=== PATIENT | male | born 1940 | race Caucasian/White ===

== ENCOUNTER 2018-12-24 23:28 | Inpatient (IN) ==
--- NOTE | 2018-12-24 23:38 | Emergency Department Note ---
Disposition Clinical Impression: STEMI (ST elevation myocardial infarction) Qualifiers: Involved coronary artery: unspecified coronary artery Qualified Code(s): I21.3 - ST elevation (STEMI) myocardial infarction of unspecified site Disposition: Admitted As Inpatient Condition: Fair Time of Disposition: 00:12 General Adult HPI - General Stated complaint: chest pain & nausea Time Seen by Provider: 12/24/18 23:35 Source: patient, EMS Mode of arrival: EMS Limitations: no limitations Nursing Notes Reviewed: Yes Vital Signs Reviewed: Yes - History of Present Illness HPI Narrative: Is a 78-year-old male has past medical history of an aortic valve replaced and 2 stents replaced in September 2018 presenting to the ED by EMS for evaluation of chest pain that started less than one hour prior to arrival described as substernal pressure-like pain at 8/10 on the pain scale him with radiation into his right arm and denies any dyspnea, diaphoresis. An squad he was given aspirin and a dose of nitroglycerin with minimal improvement in his pain. Patient states he is not taking his Plavix and aspirin for the past week due to large kidney stone with plans for removal. - Related Data Home Medications Medication Instructions Recorded Confirmed Aspirin [Lo-Dose Aspirin EC] 81 mg PO QAM 07/25/18 10/27/18 Atenolol [Tenormin] 50 mg PO QAM 07/25/18 10/27/18 Glimepiride [Amaryl] 4 mg PO DAILY 07/25/18 10/27/18 Levomefolate/B6/B12/Algal Oil 1 cap PO BID 07/25/18 10/27/18 [Metanx Capsule] Metformin HCl 1,000 mg PO BID 07/25/18 10/27/18 Simvastatin [Zocor] 20 mg PO QPM 07/25/18 10/27/18 Amlodipine Besylate 5 mg PO HS 10/27/18 10/27/18 Clopidogrel Bisulfate [Plavix] 75 mg PO DAILY 10/27/18 10/27/18 Furosemide [Lasix] 40 mg PO DAILY 10/27/18 10/27/18 Potassium Chloride [Klor-Con 10] 10 meq PO DAILY 10/27/18 10/27/18 Allergies Allergy/AdvReac Type Severity Reaction Status Date / Time bee venom protein (honey bee) Allergy Severe Anaphylaxis Verified 10/27/18 15:18 All systems ED: reviewed and negative except as stated. Review of Systems: As Per HPI Cardiovascular: Reports: chest pain Past Medical History - Past Medical History Attestation: Yes The following information was validated with the patient. Medical history: Reports: arthritis, CHF, coronary artery disease, diabetes, GERD, GI bleed, hyperlipidemia, hypertension, kidney stones, migraine, myocardial infarction, TIA, valvular heart disease Psychiatric history: Reports: anxiety, depression - Social History Smoking Status: Former smoker Smokeless Tobacco Status: No Alcohol use: Reports: none Drug use: Reports: none Physical Exam CONSTITUTIONAL: Diaphoretic and pale; A&O X 3 HEAD: Normocephalic; atraumatic EYES: PERRL, no scleral icterus NOSE: The nose is normal in appearance without rhinorrhea NECK: No JVD or distended neck veins RESP: Normal chest excursion with respiration; breath sounds clear and equal bilaterally; no wheezes, rhonchi, or rales CARD: Regular rhythm, without murmurs, rub or gallop ABD: Non-distended; non-tender, soft, without rigidity, rebound or guarding,no pulsatile mass CHEST: No pain with palpation SKIN: Normal for age and race; warm and dry without diaphoresis ; no apparent lesions EXTREMITIES: Pulses are 2 plus and equal times 4 extremities, no peripheral edema or calf muscle pain Course Course Narrative: Patient's initial EKG concerning for ST segment elevation in V1 through V4 leads that are new when compared to old EKG. STEMI alert was activated Dr. Willard agreed with these findings. - Reevaluation(s) Reevaluation #1: Called to bedside by nurse patient found to have a changing rhythm continues and sinus rhythm at 83 bpm however he has a widening of his QRS and worsening of his ST elevations in V1 through V4 with reciprocal changes in V6 and inferior leads. Time: 00:11 Vital Signs Temperature 98.0 F 12/24/18 23:32 Pulse Rate 85 12/24/18 23:32 Respiratory Rate 16 12/24/18 23:32 Blood Pressure 171/98 12/24/18 23:32 O2 Sat by Pulse Oximetry 99 12/24/18 23:32 Temperature 98.0 F 12/24/18 23:32 Pulse Rate 83 12/25/18 00:00 Respiratory Rate 16 12/25/18 00:00 Blood Pressure 162/84 12/25/18 00:00 O2 Sat by Pulse Oximetry 95 12/25/18 00:00 Oxygen Delivery Oxygen Delivery Room Air Medical Decision Making - Medical Records Medical records reviewed: Yes I reviewed the patient's medical records. - Lab Data Lab results reviewed: Yes I reviewed the patient's lab results. Result diagrams: 12/24/18 23:43 Lab Results 12/24/18 Range/Units 23:43 WBC 8.4 (4.3-11.1) K/mcL RBC 4.10 L (4.19-5.50) M/mcL Hgb 11.4 L (12.9-16.9) g/dL Hct 35.2 L (37.5-50.1) % MCV 85.9 (83.0-100.0) fL MCH 27.8 L (28.0-33.3) pg MCHC 32.4 (31.6-35.5) g/dL RDW 16.7 H (11.5-14.5) % Plt Count 283 (140-400) K/mcL MPV 9.6 (9.4-12.4) fL Immature Gran % 1.2 (0-4) % Seg Neutrophils % 79.1 % Lymphocytes % 10.1 % Monocytes % 6.4 % Eosinophils % 2.7 % Basophils % 0.5 % Neutrophils # 6.7 (1.6-8.9) K/mcL Lymphocytes # 0.9 (0.6-4.6) K/mcL Monocytes # 0.5 (0.0-1.3) K/mcL Eosinophils # 0.2 (0.0-0.6) K/mcL Basophils # 0.0 (0.0-0.2) K/mcL - EKG Data EKG #1 EKG attestation: Yes I reviewed and interpreted this EKG. EKG results narrative: First EKG performed at 23:[address] elevations in V1 through V4. STEMI EKG #2 EKG attestation: Yes I reviewed and interpreted this EKG. EKG results narrative: EKG done at 2351 is sinus rhythm [address] elevations in V1 through V4 with reciprocal changes in the inferior and lateral leads
[2018-12-24] MEDS ORDERED: Aspirin 81 MG TAB.CHEW PO ONE (23:39)
[2018-12-24] MEDS ORDERED: *HR* Ticagrelor 90 MG TABLET PO ONE (23:39)
[2018-12-24] MEDS ORDERED: *HR* Heparin 5,000 UNIT/ML VIAL IVP ONE ×2 (23:44→23:50)
[2018-12-24] MEDS ORDERED: *HR* Heparin 5,000 UNIT/ML VIAL IVP PRN ×4 (23:44→23:50)
[2018-12-24] MEDS ORDERED: *HR* Heparin 5,000 UNIT/ML VIAL ONE (23:45)
[2018-12-24] MEDS ORDERED: 0.9 % Sodium Chloride 1,000 ML ONE (23:45)
[2018-12-24] MEDS ORDERED: *HR* Ticagrelor 90 MG TABLET ONE (23:45)
[2018-12-24] MEDS ORDERED: Heparin 25,000 UNIT/250 ML D5W 25,000 UNIT/250 ML IV.SOLN IVC SCH ×2 (23:45)
[2018-12-24] MEDS ORDERED: Aspirin 81 MG TAB.CHEW ONE (23:45)
[2018-12-24] MEDS ORDERED: *HR* FentaNYL (PF) 100 MCG/2 ML VIAL IVP ONE (23:47)
[2018-12-24 23:59] LABS: Basophils % 0.5 %; Eosinophils # 0.2 K/mcL (0.0-0.6); Eosinophils % 2.7 %; Hematocrit 35.2 % (37.5-50.1); Hemoglobin 11.4 g/dL (12.9-16.9); Immature Granulocytes % 1.2 % (0-4); Lymphocytes # 0.9 K/mcL (0.6-4.6); Lymphocytes % 10.1 %; Mean Corpuscular HGB Conc 32.4 g/dL (31.6-35.5); Mean Corpuscular Hemoglobin 27.8 pg (28.0-33.3); Mean Corpuscular Volume 85.9 fL (83.0-100.0); Mean Platelet Volume 9.6 fL (9.4-12.4); Monocytes # 0.5 K/mcL (0.0-1.3); Monocytes % 6.4 %; Neutrophils # 6.7 K/mcL (1.6-8.9); Platelet Count 283 K/mcL (140-400); Red Cell Distribution Width 16.7 % (11.5-14.5); Segmented Neutrophils % 79.1 %; White Blood Count 8.4 K/mcL (4.3-11.1)
[2018-12-25] MEDS ORDERED: Verapamil 5 MG/2 ML VIAL ONE
[2018-12-25] MEDS ORDERED: Nitroglycerin 1,000 MCG/10 ML VIAL IV ONE (00:01)
[2018-12-25] MEDS ORDERED: Heparin 1,000 UNITS/500 mL 500 ML ONE (00:01)
[2018-12-25] MEDS ORDERED: *HR* Heparin 10,000 UNIT/10 ML VIAL ONE (00:01)
[2018-12-25] MEDS ORDERED: Iopamidol 125 ML INFUS..BTL ONE ×3 (00:01→00:49)
[2018-12-25] MEDS ORDERED: 0.9 % Sodium Chloride 1,000 ML ONE (00:01)
[2018-12-25 00:06] LABS: Prothrombin Time 11.9 Seconds (9.4-12.1)
[2018-12-25 00:08] LABS: Activated Partial Thrombo Time 26.2 Seconds (26.0-36.0)
[2018-12-25 00:09] LABS: Heparin anti-factor XA UFH 0.02 IU/mL (0.30-0.70)
[2018-12-25] MEDS ORDERED: *HR* Midazolam HCl 2 MG/2 ML VIAL ONE (00:09)
[2018-12-25] MEDS ORDERED: *HR* FentaNYL (PF) 100 MCG/2 ML VIAL ONE (00:09)
--- NOTE | 2018-12-25 00:18 | Pre-Sedation Evaluation ---
Pre-sedation evaluation - Pre-sedation checklist Date of procedure: 12/25/18 Procedure: [facility] Recent Vitals: Last Vital Signs Temp 98.0 F 12/24/18 23:32 Pulse 83 12/25/18 00:00 Resp 16 12/25/18 00:00 BP 162/84 12/25/18 00:00 Pulse Ox 95 12/25/18 00:00 H&P (including ROS) documented in medical record: Yes Dietary Status: unknown Airway Assessment: Patient can open mouth completely, TMJ function normal ASA Classification *see protocol: CLASS V-Morbid complications, operation only hope of survival, [id number] to any of the above to indicate emergent Plan of Care: Pt appropriate candidate for procedure/moderate/conscious sedation, Risks/benefits of procedure/sedation discussed w/ patient/family, If not NPO; Risk of intake outweiged by necessity to perform procedure Cardiac Registry (Cardio Only) - Functional Capacity Functional Capacity: >=4 METS with symptoms - Clincal Frailty Scale Clinical Frailty Scale: Vulnerable
[2018-12-25 00:20] LABS: BUN/Creatinine Ratio 24 (6-26); Blood Urea Nitrogen 24 mg/dL (8-23); Calcium 9.9 mg/dL (8.6-10.3); Carbon Dioxide 22 mEq/L (23-29); Chloride 103 mEq/L (98-107); Glucose 262 mg/dL (70-105); Magnesium 1.7 mg/dL (1.6-2.6); Osmolality,Calculated 299 (280-300); Potassium 4.1 mEq/L (3.5-5.1); Sodium 138 mEq/L (136-145); eGFR For African Americans > 60 (> 60); eGFR For Non-African Americans > 60 (> 60)
--- NOTE | 2018-12-25 00:21 | Cardiology History & Physical ---
Date of Encounter: 12/26/18 Time of Encounter: 00:30 Assessment and Plan (1) STEMI (ST elevation myocardial infarction) Current Visit: Yes Status: Acute A/R/B of emergent [facility] dw patient including 1% chance of /CVA/CABG/JORGE LUIS/bleeding/contrast reaction/additional ND. He is aware and agreeable with proceeding. EF assessment will be completed, DAPT, heparin. Cardiac reab. Total critical care time 90 minutes The assessment and plan as outlined above was discussed with the patient and/or family members who expressed understanding and agreement. All questions were answered. Qualifiers: Involved coronary artery: LAD coronary artery Qualified Code(s): I21.02 - ST elevation (STEMI) myocardial infarction involving left anterior descending coronary artery (2) Ureteral stone with hydronephrosis Current Visit: No Status: Acute BMS will be utilized if necessary. The assessment and plan as outlined above was discussed with the patient and/or family members who expressed understanding and agreement. All questions were answered. History of Present Illness Chief complaint: chest pressure HPI: Mr. 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 He was given aspirin and brilinta in ED. It was associated with dyspnea. EKG concerning for anterior ND. Past Med Surg Social Fam HX - Past Medical History Medical history: arthritis, CHF, coronary artery disease, diabetes, GERD, GI bleed, hyperlipidemia, hypertension, kidney stones, migraine, myocardial infarction, TIA, valvular heart disease Psychiatric history: anxiety, depression - Past Surgical History Additional surgical history: throat surgery Stent placement, Aortic Valve replacement. - Social History Smoking Status: Former smoker Smokeless Tobacco Status: No Alcohol use: none Drug use: none - Family History Sister Adopted: No Family Member Ethnicity: Non- Living Status: Still Living Hx Family Cardiac Disorders: Yes Hx Family Respiratory Disorders: No Hx Family Cancer: No Hx Family GI Disorders: Yes Hx Family Endocrine Disorder: No Hx Family Neuromuscular Disorders: No Hx Family Neurologic Disorders: No Hx Family HEENT Disorders: Yes (glasses) Hx Family Autoimmune Disorders: No Medications and Allergies Aspirin [Lo-Dose Aspirin EC] 81 mg PO QAM 07/25/18 [History] Atenolol [Tenormin] 50 mg PO QAM 07/25/18 [History] Glimepiride [Amaryl] 4 mg PO QAM 07/25/18 [History] Levomefolate/B6/B12/Algal Oil [Metanx Capsule] 1 cap PO BID 07/25/18 [History] Metformin HCl 1,000 mg PO BID 07/25/18 [History] Simvastatin [Zocor] 20 mg PO QPM 07/25/18 [History] Amlodipine Besylate 5 mg PO HS 10/27/18 [History] Clopidogrel Bisulfate [Plavix] 75 mg PO DAILY 10/27/18 [History] Potassium Chloride [Klor-Con 10] 10 meq PO DAILY 10/27/18 [History] Allergy/AdvReac Type Severity Reaction Status Date / Time bee venom protein (honey bee) Allergy Severe Anaphylaxis Verified 12/25/18 17:23 All Systems Review: The remainder of the systems were reviewed and are negative - Constitutional Constitutional: no chills, no fever(s) - EENT Eyes: no blurred vision, no loss of vision Nose, mouth and throat: no mouth pain, no odynophagia - Cardiovascular Cardiovascular: chest pain at rest, chest pain with exertion - Respiratory Respiratory: no hemoptysis, no wheezing - Gastrointestinal Gastrointestinal: no hematemesis, no hematochezia - Genitourinary Genitourinary: no hematuria, no nocturia - Musculoskeletal Musculoskeletal: no muscle cramps, no muscle weakness - Integumentary Integumentary: no rash, no unusual bruising - Neurological Neurological: no loss of vision, no syncope - Psychiatric Psychiatric: no hallucinations, no panic attacks - Hematological/Lymphatic Hematologic/Lymphatic: no easy bleeding, no easy bruising Physical Examination Vital Signs, Last 4 Hours Temp Pulse Resp BP Pulse Ox 12/25/18 00:13 85 13 165/89 92 12/25/18 00:00 83 16 162/84 95 12/24/18 23:45 83 18 160/86 99 12/24/18 23:32 98.0 F 85 16 171/98 99 General: Conversant HEENT: Atraumatic Neck: No JVD Cardiac: Reg Rate and Rhythm Lungs: Normal Breath Sounds Neuro: No focal deficits noted Abdomen: Soft, Non-Tender Skin: No rashes noted on visualized skin Musculoskeletal: No Chest Wall Tenderness Extremities: No Edema Results 12/25/18 03:52 12/25/18 03:52 Lab Results 12/24/18 12/24/18 23:43 23:45 WBC 8.4 Hgb 11.4 L Hct 35.2 L Plt Count 283 INR 1.0 APTT 26.2 - EKG Interpretation EKG results cardiology: personally reviewed, sinus rhythm (anterior ischemia)
[2018-12-25] MEDS ORDERED: Ondansetron 4 MG/2 ML VIAL IVP PRN (00:23)
[2018-12-25 00:29] LABS: Troponin I 0.16 ng/mL (< 0.04)
--- NOTE | 2018-12-25 00:42 | Emergency Department Note ---
Disposition Clinical Impression: STEMI (ST elevation myocardial infarction) Qualifiers: Involved coronary artery: LAD coronary artery Qualified Code(s): I21.02 - ST elevation (STEMI) myocardial infarction involving left anterior descending coronary artery Disposition: Admitted As Inpatient Condition: Serious Time of Disposition: 00:12 General Adult HPI - General Chief complaint: ED Chest Pain Stated complaint: chest pain & nausea Time Seen by Provider: 12/24/18 23:35 Source: patient, EMS Mode of arrival: EMS Limitations: no limitations Nursing Notes Reviewed: Yes Vital Signs Reviewed: Yes - History of Present Illness Pain Scale: 8 - Related Data Home Medications Medication Instructions Recorded Confirmed Aspirin [Lo-Dose Aspirin EC] 81 mg PO QAM 07/25/18 10/27/18 Atenolol [Tenormin] 50 mg PO QAM 07/25/18 10/27/18 Glimepiride [Amaryl] 4 mg PO DAILY 07/25/18 10/27/18 Levomefolate/B6/B12/Algal Oil 1 cap PO BID 07/25/18 10/27/18 [Metanx Capsule] Metformin HCl 1,000 mg PO BID 07/25/18 10/27/18 Simvastatin [Zocor] 20 mg PO QPM 07/25/18 10/27/18 Amlodipine Besylate 5 mg PO HS 10/27/18 10/27/18 Clopidogrel Bisulfate [Plavix] 75 mg PO DAILY 10/27/18 10/27/18 Furosemide [Lasix] 40 mg PO DAILY 10/27/18 10/27/18 Potassium Chloride [Klor-Con 10] 10 meq PO DAILY 10/27/18 10/27/18 Allergies Allergy/AdvReac Type Severity Reaction Status Date / Time bee venom protein (honey bee) Allergy Severe Anaphylaxis Verified 10/27/18 15:18 Cardiovascular: Reports: chest pain Past Medical History - Past Medical History Medical history: Reports: arthritis, CHF, coronary artery disease, diabetes, GERD, GI bleed, hyperlipidemia, hypertension, kidney stones, migraine, myocardial infarction, TIA, valvular heart disease Psychiatric history: Reports: anxiety, depression - Social History Smoking Status: Former smoker Smokeless Tobacco Status: No Alcohol use: Reports: none Drug use: Reports: none Physical Exam - General Limitations: no limitations General appearance: alert Course Vital Signs Temperature 98.0 F 12/24/18 23:32 Pulse Rate 85 12/24/18 23:32 Respiratory Rate 16 12/24/18 23:32 Blood Pressure 171/98 12/24/18 23:32 O2 Sat by Pulse Oximetry 99 12/24/18 23:32 Temperature 98.0 F 12/24/18 23:32 Pulse Rate 85 12/25/18 00:13 Respiratory Rate 13 12/25/18 00:13 Blood Pressure 165/89 12/25/18 00:13 O2 Sat by Pulse Oximetry 92 12/25/18 00:13 Oxygen Delivery Oxygen Delivery Room Air Medical Decision Making - Lab Data Lab results reviewed: Yes I reviewed the patient's lab results. Result diagrams: 12/24/18 23:43 12/24/18 23:45 Lab Results 12/24/18 12/24/18 12/24/18 Range/Units 23:43 23:45 23:45 WBC 8.4 (4.3-11.1) K/mcL RBC 4.10 L (4.19-5.50) M/mcL Hgb 11.4 L (12.9-16.9) g/dL Hct 35.2 L (37.5-50.1) % MCV 85.9 (83.0-100.0) fL MCH 27.8 L (28.0-33.3) pg MCHC 32.4 (31.6-35.5) g/dL RDW 16.7 H (11.5-14.5) % Plt Count 283 (140-400) K/mcL MPV 9.6 (9.4-12.4) fL Immature Gran % 1.2 (0-4) % Seg Neutrophils % 79.1 % Lymphocytes % 10.1 % Monocytes % 6.4 % Eosinophils % 2.7 % Basophils % 0.5 % Neutrophils # 6.7 (1.6-8.9) K/mcL Lymphocytes # 0.9 (0.6-4.6) K/mcL Monocytes # 0.5 (0.0-1.3) K/mcL Eosinophils # 0.2 (0.0-0.6) K/mcL Basophils # 0.0 (0.0-0.2) K/mcL PT 11.9 (9.4-12.1) Seconds INR 1.0 APTT 26.2 (26.0-36.0) Seconds Heparin Anti-Xa, Unfract 0.02 L (0.30-0.70) IU/mL Sodium 138 (136-145) mEq/L Potassium 4.1 (3.5-5.1) mEq/L Chloride 103 (98-107) mEq/L Carbon Dioxide 22 L (23-29) mEq/L BUN 24 H (8-23) mg/dL Creatinine 1.00 (0.70-1.30) mg/dL Est GFR ( Amer) > 60 (> 60) Est GFR (Non-Af Amer) > 60 (> 60) BUN/Creatinine Ratio 24 (6-26) Glucose 262 H (70-105) mg/dL Calculated Osmolality 299 (280-300) Calcium 9.9 (8.6-10.3) mg/dL Magnesium 1.7 (1.6-2.6) mg/dL Troponin I 0.16 H* (< 0.04) ng/mL - EKG Data EKG #1 EKG attestation: Yes I reviewed and interpreted this EKG. EKG results narrative: 23:35 EKG shows a normal sinus rhythm with ventricular rate is 76. ST segment elevation in V1 through V4 which does meet STEMI criteria. This is new compared to prior EKG dated 07/25/2018. EKG #2 EKG attestation: Yes I reviewed and interpreted this EKG. EKG results narrative: 23:51 repeat EKG shows normal sinus rhythm with ventricular rate of 83. Pat ient has developed a new left bundle branch block with QRS widening since the initial EKG. There is increased anterior ST segment elevation and now with inferior ST segment depressions. Critical Care Time Critical Care Time: Yes Total Critical Care Time: 35 Attestation: Critical care performed: Time is exclusive of separately billable procedures. Time includes: direct patient care, patient reassessment, coordination of patient care, interpretation of data (laboratory data, radiology data, and respiratory data), review of patient's medical records, medical consultation and documentation of patient car e. Procedures included in critical care time: Procedures excluded from critical care time: Attestation Statement - Attestation Attestation: IRomario MD, personally evaluated this patient and discussed their management with the resident physician. I reviewed the resident's note and agree with the documented findings, medical decision making, and plan of care. I reviewed the residents documentation and agree with the residents assessment and plan of care. I have personally had face to face time with the patient. I personally supervised and was present for the fajardo/critical portions of the following procedures completed by the resident: EKG interpretation. 78-year-old male presents to the emergency department with a complaint of severe substernal chest pain which started approximately one hour prior to arrival. Onset at rest. The pain radiates to the right arm. There has been some shortness of breath with the pain. Nausea but no vomiting. Also diaphoresis. Patient does have a history of a heart valve replacement in the distant past and a coronary stent recently in the past several months. He normally takes aspirin and Plavix however he stopped the aspirin and Plavix approximately one week ago because he is scheduled Wednesday to have a kidney stone removal. On examination patient is a well-developed well-nourished elderly male in no acute distress. He is alert and oriented 3. There is no cyanosis or diaphoresis. Chest is nontender to palpation. Breath sounds are clear and equal bilaterally. Heart regular rate and rhythm. Abdomen soft and nontender with normal bowel sounds. 2+ pitting edema of the right lower extremity, 1+ pitting edema on the left. Initial EKG showed a normal sinus rhythm with rate of [address] segment elevation anteriorly in V1 through V4 which does meet STEMI criteria. Labs reviewed. Troponin 0.16. A STEMI alert was called. Patient received aspirin, Brilinta, and heparin bolus. Patient was taken directly from the emergency department to the cardiac catheter lab.
[2018-12-25] MEDS ORDERED: Tirofiban 12.5 MG/250ML 12.5 MG/250 ML BAG ONE (00:47)
--- NOTE | 2018-12-25 01:14 | Event Note ---
Date of Encounter: 12/25/18 Time of Encounter: 01:00 - Cardiology Event Note 100% mLAD IS sp BMS x 1. Previously jailed diagonal present. Unable to rewire this diagonal, has JEANNE 2.5 flow. Otherwise no severe disease. Elevated LVEDP. Start NTG drip.
[2018-12-25] MEDS ORDERED: Morphine Sulfate 2 MG/ML SYRINGE IVP PRN (01:17)
[2018-12-25] MEDS ORDERED: *HR* Dextrose 50 % in Water (Syg) 50 ML SYRINGE IVP PRN (01:18)
[2018-12-25] MEDS ORDERED: Dextrose Gel 15 GM/37.5 ML TUBE PO PRN ×2 (01:18)
[2018-12-25] MEDS ORDERED: D5% in Water 1,000 ML IVC PRN (01:18)
--- NOTE | 2018-12-25 01:36 | Invasive Diagnostic Lab Proc ---
Name: August Nalyor Date of Study: 12/25/2018 Date: 1940 Ht: 68.1in Medical Record#: [id number] Age: 78 Wt: 205.03lb Gender: Male BSA: 2.07 Order #: [id number] BMI: 31.07 Physicians Procedure Physician: Taurus Willard MD, [facility] Referring MD: Referring MD: Staff Name Position Time In Adam, Raheem RN Monitor 12:22 AM Nikita Fagan RN Certified Ophthalmic Assistant 12:22 AM Maegan Blount RT (R) Scrub 12:22 AM Indications Indication STEMI Procedures Performed Procedure PRQ CARD REVASC TX 1 VSL L HRT ARTERY/VENTRICLE ANGIO PRQ CARD BM STENT W/ANGIO 1 VSL Pre-Procedure Checklist Informed consent is complete signed and on chart. H&P is on chart. ID band is on and ID verified with patient. Patient NPO for procedure The procedure was described for the patient and questions were answered. Blood Pressure: 112/84 ECG is on chart. Rhythm: NSR Plan of Care Patient will tolerate the procedure without complications. Adequate level of comfort will be maintained. Hemodynamics will remain stable Patient will recover from procedure without complications. Respiratory function will be maintained. Cardiac rhythm will remain stable. Patient temperature will be maintained. Patient and/or family have verbalized understanding of the procedure. Patient Education Chief Complaint/Reason for Test: Cardiac Cath Developmental Category: Geriatric (65+ years) Developmentally Appropriate for Age: Yes Learning Barriers: None Education Needs: Procedure Education Method: Verbal Information Taught: Cardiac Cath Educational Evaluation: Able to repeat information Intravenous Access Time IV Size Location DC'd Fluid/Drip Rate Units RN 18g 1 1/4" Patent On Arrival Lt Wrist 0.9NaCl Nikita Fagan RN 20g 1 1/4" Patent On Arrival Rt Hand Nikita Fagan RN Allergies Penicillin Bee Pollen bee venom protein (honey bee) PCN No Known Allergies Vital Signs Time BP (mmHg) HR (bpm) O2 Sat. RR (bpm) LOC 12:29 AM / % 5 = Fully awake and oriented or at pre-proc level 12:29 AM / % 4 = Oriented but drowsy 12:44 AM / % 4 = Oriented but drowsy 01:00 AM / % 4 = Oriented but drowsy 12:30 AM 172 / 97 89 91 % 28 12:35 AM 165 / 93 94 87 % 43 12:40 AM 150 / 88 99 89 % 45 12:45 AM 157 / 95 92 95 % 23 12:50 AM 163 / 99 88 93 % 22 12:55 AM 160 / 90 91 93 % 20 01:00 AM 146 / 91 89 93 % 25 01:05 AM 150 / 89 86 95 % 35 01:10 AM 152 / 81 90 92 % 39 Procedural Medications Time Medication Dose Units Method Given By 12:29 AM Oxygen 2 L/min nasal cannula Nikita Fagan RN 12:30 AM Versed 2 mg Intravenous Nikita Fagan RN 12:30 AM Fentanyl 25 mcg Intravenous Nikita Fagan RN 12:33 AM Zofran 8 mg Intravenous Nikita Fagan RN 12:35 AM Lidocaine 2% 1 ml Subcutaneous Taurus Willard MD, FACC 12:38 AM Heparin 1000 units Nitroglycerin 200 mcg Verapamil 2.5 mg Intraarterial Taurus Willard MD, FACC 12:48 AM Aggrastat Bolus: 46 ml Intravenous Nikita Fagan RN 12:48 AM Aggrastat 12.5mg/250ml 16.5 ml/hr Intravenous Nikita Fagan RN 12:55 AM Nitroglycerin 200 mcg Intracoronary Taurus Willard MD 01:07 AM Nitroglycerin 200 mcg Intracoronary Taurus Willard MD 01:09 AM Nitroglycerin 10 mcg/min Intravenous Nikita Fagan RN ASA Classification: Emergent Procedure: ASA score is assumed Harlan Score Preprocedure Postprocedure Activity 2- Moves 4 extremities sustained head lift Activity 2- Moves 4 extremities sustained head lift Circulation 2- SBP +/= 20 points of pre-anesthetic level Circulation 2- SBP +/= 20 points of pre-anesthetic level Consciousness 2- Awake and alert oriented x 3 Consciousness 2- Awake and alert oriented x 3 O2 Saturation 2- Able to maintain O2 satruation of 92% on room air O2 Saturation 2- Able to maintain O2 satruation of 92% on room air Respiratory 2- Able to deep breathe and cough well Respiratory 2- Able to deep breathe and cough well Total Score 10 Total Score 10 Contrast Agent: Isovue Diagnostic Contrast: 129 ml Total Contrast: 129 ml Fluoro Dose: 41 mGy Procedure Log Time Note Enter By 12:22 AM Pt arrived to veterinarian laboratory animal care 2 at 00:22 oparave 12:22 AM Raheem Medina RN Position: Monitor Time in: 00:22 oparker 12:22 AM Nikita Fagan RN Position: Certified Ophthalmic Assistant Time in: oparker 12: AM Maegan Blount RT (R) Position: Scrub Time in: : oparker 12: AM Patient charges- Angio tray pack, Navilyst 3mm J, Pulse Oximetry and ACIST tubing and transducer oparker 12: AM Physician arrived 00: oparker 12: AM Meet and greet completed oparker 12: AM Sign in performed according to hospital policy. Informed consent was obtained. oparker 12: AM CathStat 12: AM Procedure start 00: oparker 12: AM Vitals capture started with the following parameters, Patient=Adult, Interval=5 min, Initial Wrhzqtrw=796 mmHg, Deflation Rate=3 mmHg, Cuff placed on Right Arm 12: AM Time: 00:29 Patient comfortable and pain free: Yes oparker 12:29 AM Time: 00:29LOC: 5 = Fully awake and oriented or at pre-proc level oparker 12:29 AM Time: 00:29 Oxygen on at 2 L/min per nasal cannula by Nikita Faagn RN oparave 12:30 AM Time: 00:30 Versed 2 mg Intravenous Given by Nikita Fagan RN 12:30 AM Time: 00:30 Fentanyl 25 mcg Intravenous Given by Nikita Fagan RN opamatthew 12:30 AM HR=89 bpm, VSJP=393/97 mmhg, SpO2=91.0 %, Resp=28 B/min, Comment=nsr 12:33 AM Time: 00:33 Zofran 8 mg Intravenous Given by Nikita Fagan RN opamatthew 12:35 AM HR=94 bpm, GAOR=627/93 mmhg, SpO2=87 %, Resp=43 B/min 12:35 AM Time out was performed according to hospital policy. Conscious sedation and anesthesia was achieved (see medication log with in this report above) oparker 12:35 AM Time: 00:35 1 ml Lidocaine 2% to right radial Subcutaneous Given by Taurus Willard MD, [facility] oparker 12:38 AM Access obtained by percutaneous puncture. 5/6Fr 10cm Terumo Glidesheath sheath placed in right Radial artery. [id number] oparker 12:39 AM Time: 00:38 Patient given 1,000 units Heparin, 200 mcg Nitroglycerin, and 2.5 mg Verapamil Intraarterial by Taurus Willard MD, [facility]. This is given to reduce risk of vessel spasm and thrombosis. oparker 12:39 AM 5Fr TIG catheter inserted over the wire [facility] oparker 12:40 AM Catheter removed oparker 12:40 AM HR=99 bpm, YWUP=938/88 mmhg, SpO2=89.0 %, Resp=45 B/min, Comment=nsr 12:40 AM 6Fr RBL 3.5 Convey guide catheter was used to cannulate the PCI vessel successfully. reused? No oparker 12:40 AM Recorded Pressure: Ao, HR=99, Condition=Condition 1 (Aorta) Ao 144/72/103 12:42 AM LCA angiography performed in multiple views. oparker 12:43 AM .014 PT Graphix 182cm guide wire across target lesion- successful. reused? No oparker 12:43 AM Inflation device was opened. oparker 12:43 AM PCI Status Emergency oparker 12:44 AM PCI lesion in Mid LAD. Pre Stenosis: 100 Pre JEANNE Flow: 0: No Flow/No perfusion oparker 12:44 AM PCI Indication: Immediate PCI for STEMI oparker 12:44 AM Time: 00:29 Patient comfortable and pain free: Yes oparker 12:44 AM Time: 00:29LOC: 4 = Oriented but drowsy oparker 12:45 AM 2.0 mm x 15 mm Emerge Monorail balloon across target lesion- successful. reused? No oparker 12:45 AM HR=92 bpm, DVTA=173/95 mmhg, SpO2=95.0 %, Resp=23 B/min 12:45 AM Balloon inflated @ 14 stephanie for 12 seconds oparker 12:47 AM Balloon catheter removed intact. oparker 12:48 AM Time: 00:48 Aggrastat Bolus: 46 ml Intravenous Given by Nikita Fagan RN Diallo pump oparker 12:48 AM 2.5 mm x 15mm NC Emerge balloon across target lesion- successful. reused? No oparker 12:48 AM Time: 00:48 Aggrastat 12.5mg/250ml 16.5 ml/hr Intravenous Given by Nikita Fagan RN Diallo pump oparker 12:48 AM Recorded Pressure: Ao, HR=92, Condition=Condition 1 (Aorta) Ao 139/85/111 12:48 AM Balloon inflated @ 16 stephanie for 16 seconds oparker 12:50 AM HR=88 bpm, RVOJ=835/99 mmhg, SpO2=93.0 %, Resp=22 B/min 12:51 AM Balloon catheter removed intact. oparker 12:51 AM Guide wire removed intact. oparker 12:51 AM Recorded Pressure: Ao, HR=91, Condition=Condition 1 (Aorta) Ao 153/71/107 12:52 AM .014 PT Graphix 182cm guide wire across target lesion- successful. reused? No oparker 12:55 AM HR=91 bpm, YBBO=299/90 mmhg, SpO2=93.0 %, Resp=20 B/min, Comment=nsr 12:55 AM Time: 00:55 Nitroglycerin 200 mcg Intracoronary Given by Taurus Willard MD oparker 12:58 AM 2.5mm x 18mm Multi-Link Mini Vision RX Stent bare metal stent across target lesion- successful Lot #[id number] oparker 12:59 AM Stent deployed @ 14 stephanie for 23 seconds oparker 12:59 AM Time: 00:44 Patient comfortable and pain free: Yes oparker 01:00 AM HR=89 bpm, QCFM=666/91 mmhg, SpO2=93 %, Resp=25 B/min 01:00 AM Time: 00:44LOC: 4 = Oriented but drowsy oparker 01:01 AM Stent delivery system removed intact. oparker 01:01 AM 2.75 mm x 12mm NC Trek Rx balloon across target lesion- successful. reused? No oparker 01:01 AM Recorded Pressure: Ao, HR=89, Condition=Condition 1 (Aorta) Ao 145/71/102 01:02 AM Balloon inflated @ 18 stephanie for 15 seconds oparker 01:02 AM Balloon inflated @ 18 stephanie for 7 seconds oparker 01:02 AM Balloon inflated @ 18 stephanie for 9 seconds oparker 01:03 AM Balloon catheter removed intact. oparker 01:03 AM Guide wire removed intact. oparker 01:04 AM Guide catheter removed intact. oparker 01:05 AM HR=86 bpm, WUJS=830/89 mmhg, SpO2=95.0 %, Resp=35 B/min, Comment=nsr 01:05 AM Lesion found in Proximal LAD. Pre Stenosis: 70 Pre JEANNE Flow: 2: Partial Flow/Perfusion (> 1 but < 3) oparker 01:05 AM Lesion found in Distal Circumflex. Pre Stenosis: 60 Pre JEANNE Flow: oparker 01:06 AM Lesion found in 1st Marginal. Pre Stenosis: 60 Pre JEANNE Flow: oparker 01:06 AM Lesion found in 1st Diagonal. Pre Stenosis: 99 Pre JEANNE Flow: oparker 01:06 AM 5Fr FR 4 catheter inserted over the wire DNC oparker 01:06 AM Recorded Pressure: LV, HR=88, Condition=Condition 1 (Left Ventricle) LV 130/45/43 01:06 AM Pressure channel 1 zeroed. 01:06 AM Recorded Pressure: LV, HR=86, Condition=Condition 1 (Left Ventricle) LV 142/25/46 01:07 AM Recorded Pressure: LV, HR=90, Condition=Condition 1 (Left Ventricle) LV 152/25/49 01:07 AM Time: 01:07 Nitroglycerin 200 mcg Intracoronary Given by Taurus Willard MD oparker 01:07 AM Catheter crossed the aortic valve and was selectively placed in the left ventricle. Pressures recorded on pullback for left heart catheterization. oparker 01:07 AM Pressures only oparker 01:07 AM Recorded Pressure: LV, Ao, HR=91, Condition=Condition 1 (Left Ventricle) LV 122/38/41, (Aorta) Ao 122/73/96 01:08 AM RCA angiography performed in multiple views. oparker 01:08 AM Coronary Dominance: right oparker 01:08 AM Lesion found in Proximal RCA. Pre Stenosis: 30 Pre JEANNE Flow: oparker 01:09 AM Catheter removed oparker 01:09 AM Wire removed oparker 01:10 AM Time: 01:09 Nitroglycerin 10 mcg/min Intravenous Given by Nikita Fagan RN oparker 01:10 AM HR=90 bpm, VMHV=828/81 mmhg, SpO2=92.0 %, Resp=39 B/min, Comment=nsr 01:12 AM Procedure completed at 01:12 12/25/2018 oparker 01:12 AM Did you address JEANNE flow and Dominance? YesCoronary Dominance: right oparker 01:12 AM Isovue 370 - 150ml,2 Bottle(s) used. oparker 01:12 AM Arterial sheath pulled, Vasc Band closure device used and was Successful S/N. oparker 01:12 AM 15 ml air in Vasc Band. oparker 01:12 AM Estimated Blood Loss: less than 20cc oparker 01:12 AM Post ECG NSR oparker 01:12 AM Post Blood Pressure 152/81 oparker 01:13 AM 01:12 Post Pulses Bilateral DP 1+ oparker 01:13 AM 01:13 Post Pulses Rt Radial 1+ oparker 01:13 AM Information taught Cardiac Cath, PCI, and Vasc Band oparker 01:13 AM Education needs Procedure, Plan of Care, and Responsibilities of Patient in Care oparker 01:15 AM Time: 01:00LOC: 4 = Oriented but drowsy oparker 01:15 AM Time: 00:59 Patient comfortable and pain free: Yes oparker 01:16 AM Sign out completed: Radiation Dose 313.97 mGy, 40.7 Gy/cm2 Fluoro Time: 8.3 Isovue 370 - 200ml contrast 129 ml given by Taurus Willard MD, FACC. Complications: None. The patient was discharged out of the laboratory analyst in stable condition. Sedation minutes 46. Cardiac Rehab Consult needed: Yes. Confirmed administered medications: Yes oparker 01:16 AM Learning barriers :None oparker 01:16 AM Education Methods Verbal oparker 01:16 AM Education evaluation Able to repeat information oparker 01:16 AM Site status No bleeding/ No Hematoma - Rt Wrist as reported by Maegan Blount RT (R) at 01:16 oparker 01:17 AM Plavix, Effient or Brilinta given Yes oparker 01:17 AM no family present at this time. oparker 01:27 AM Report given to Lala GAITAN Pt taken to ICU Room #12. 01:26 oparker 01:27 AM Patient out of room: 01:27 oparker Complications Complication None Hemodynamics Pressures Site Systolic/A Wave Diastolic/V Wave Mean AO 144 72 103 AO 139 85 111 AO 153 71 107 AO 145 71 102 LV 130 45 43 LV 142 25 46 LV 152 25 49 LV 122 38 41 AO 122 73 96 Post Procedure Information Blood Pressure: 152/81 mmHg Rhythm: NSR Post procedural instructions were given Closure Device Time Device Success/Fail 12/25/2018 1:12:00 AM Mechanical Compression Successful Site Checks Time Location Status Staff Sheath In? Note 01:16 AM Rt Wrist No bleeding/ No Hematoma Maegan Blount RT (R) Pulses Time Site Pre-Procedure Post-Procedure Note Bilateral radial 2+ Bilateral DP 1+ 1:12:00 AM Bilateral DP 1+ 1:13:00 AM Rt Radial 1+ Updated by Nikita Fagan RN on 12/25/2018 1:30:20 AM electronically signed on 12/25/2018 1:30:39 AM with status of Final
[2018-12-25] MEDS: Tirofiban 12.5 MG/250ML 12.5 MG/250 ML BAG IVC SCH ×2 (02:31→16:39)
[2018-12-25] MEDS: Nitroglycerin 25 MG/250 ML INFUS..BTL IVC SCH ×2 (02:33→19:40)
[2018-12-25 04:04] LABS: Basophils % 0.2 %; Eosinophils % 0.2 %; Hematocrit 38.8 % (37.5-50.1); Hemoglobin 12.4 g/dL (12.9-16.9); Immature Granulocytes % 0.7 % (0-4); Lymphocytes # 0.4 K/mcL (0.6-4.6); Lymphocytes % 3.1 %; Mean Corpuscular Hemoglobin 27.9 pg (28.0-33.3); Mean Corpuscular Volume 87.4 fL (83.0-100.0); Mean Platelet Volume 9.6 fL (9.4-12.4); Monocytes # 0.4 K/mcL (0.0-1.3); Monocytes % 3.2 %; Neutrophils # 11.2 K/mcL (1.6-8.9); Platelet Count 321 K/mcL (140-400); Red Blood Count 4.44 M/mcL (4.19-5.50); Red Cell Distribution Width 16.6 % (11.5-14.5); Segmented Neutrophils % 92.6 %; White Blood Count 12.1 K/mcL (4.3-11.1)
[2018-12-25 04:23] LABS: BUN/Creatinine Ratio 25 (6-26); Blood Urea Nitrogen 24 mg/dL (8-23); Calcium 9.3 mg/dL (8.6-10.3); Carbon Dioxide 22 mEq/L (23-29); Chloride 104 mEq/L (98-107); Glucose 320 mg/dL (70-105); Osmolality,Calculated 304 (280-300); Potassium 4.5 mEq/L (3.5-5.1); Sodium 139 mEq/L (136-145); eGFR For African Americans > 60 (> 60); eGFR For Non-African Americans > 60 (> 60)
[2018-12-25] MEDS: *HR* Enoxaparin 40 MG/0.4 ML SYRINGE SQ SCH (06:11)
[2018-12-25] MEDS: *HR* Ticagrelor 90 MG TABLET PO SCH ×2 (08:29→19:42)
[2018-12-25] MEDS: Aspirin 81 MG TAB.CHEW PO SCH (08:30)
[2018-12-25] MEDS: Insulin LISPRO 300 UNITS/3 ML VIAL SQ SCH ×3 (08:32→17:23)
--- NOTE | 2018-12-25 13:15 | Event Note ---
Date of Encounter: 12/25/18 Time of Encounter: 13:00 - Cardiology Event Note STEMI early this morning, final cath report pending. Per Dr. Willard- 100% mLAD IS sp BMS x 1. Previously jailed diagonal present. Unable to rewire this diagonal, has JEANNE 2.5 flow. Otherwise no severe disease. Elevated LVEDP. Dr. Willard started Nitro gtt. EKG immediately following LHC showed improvements. Pt evaluated at bedside this morning while having Echocardiogram done. Reported 7/10 chest pain, states pain had peaked at 9/10. Spoke with RN to increase Nitro gtt- chest pain decreased to 6/10 after increase. Will obtain repeat EKG. Tele reviewed, no events noted. Continue ASA, Brilinta, Statin, Heparin gtt and Nitro gtt. Will add BB.
[2018-12-25] MEDS ORDERED: Perflutren Lipid Microsphere 1.3 ML in 0.9 % Sodium Chloride 8.7 ML IVP ONE (13:16)
[2018-12-25] MEDS ORDERED: Insulin LISPRO 300 UNITS/3 ML VIAL SQ SCH (21:00)
[2018-12-26] MEDS: *HR* Enoxaparin 40 MG/0.4 ML SYRINGE SQ SCH (06:28)
[2018-12-26] MEDS: Tirofiban 12.5 MG/250ML 12.5 MG/250 ML BAG IVC SCH (07:57)
[2018-12-26] MEDS: Nitroglycerin 25 MG/250 ML INFUS..BTL IVC SCH (08:02)
[2018-12-26] MEDS: Aspirin 81 MG TAB.CHEW PO SCH (08:03)
[2018-12-26] MEDS: *HR* Ticagrelor 90 MG TABLET PO SCH ×2 (08:03→20:32)
[2018-12-26] MEDS: Insulin LISPRO 300 UNITS/3 ML VIAL SQ SCH ×4 (08:07→22:05)
[2018-12-26] MEDS ORDERED: Ranolazine 500 MG TAB.ER.12H PO SCH (09:00)
--- NOTE | 2018-12-26 10:16 | Cardiology Progress Note ---
Date of Encounter: 12/26/18 Time of Encounter: 12:53 Assessment and Plan (1) STEMI (ST elevation myocardial infarction) Current Visit: Yes Status: Acute Emergent [facility] 12/25/18: Lesion Findings/Interventions * Left Main Coronary Artery The LMCA is angiographically free of disease. * Left Anterior Descending There is a 18 mm long, 70% stenosis in the Proximal LAD. The lesion has a JEANNE flow of 0 and has no thrombus present. An intervention was performed on the Proximal LAD with a final stenosis of 0%. There were no lesion complications. The final JEANNE flow was 3. There is a 15 mm long, 100% stenosis in the Mid LAD. The lesion has a JEANNE flow of 0 and has thrombus present. An intervention was performed on the Mid LAD with a final stenosis of 0%. There were no lesion complications. The final JEANNE flow was 3. There is a 95-99% stenosis in the 1st Diagonal. Jailed vessel. JEANNE 2 flow. * Circumflex There is a 50-60% stenosis in the Distal Circumflex. There is a 50-60% stenosis in the 1st Marginal. * Right Coronary Artery There is a 30% stenosis in the Proximal RCA. 1. Echo reviewed EF 40%, Bioprosthetic aortic valve not well visualized. Mild mitral regurgitation, Mild pulmonic regurgitation. No pulmonary hypertension. Hx of TAVR. 2.. On DAPT Brilinta, ASA, high does statin, ranexa, continue. Will add ACEI. 3. On Metoprolol Tartrate 25mg BID with reduced EF of 40%; will stop and add Toprol XL 50mg daily. 4. On Nitro gtt, will stop. Denies chest pain. Remains asymptomatic. 5. Pwer [facility] report: "If continued symptoms despite medical therapy, consider reattempt of diagonal intervention". Discussed with the patient and Dr. Gracia. Will step down and continue optimal medical therapy of patient's disease and aggressive risk factor modification. Aware of previously jailed diagonal in the proximal mid LAD. Will monitor next 24 hrs for continued symptoms despite medical therapy, and consider reattempt of diagonal intervention. Qualifiers: Involved coronary artery: LAD coronary artery Qualified Code(s): I21.02 - ST elevation (STEMI) myocardial infarction involving left anterior descending coronary artery (2) Ureteral stone with hydronephrosis Current Visit: No Status: Acute Previous report reviewed: BMS utilized as necessary. The assessment and plan as outlined above was discussed with the patient and/or family members who expressed understanding and agreement. All questions were answered. Discussion w patient/family: The assessment and plan as outlined above was discussed with the patient and/or family members who expressed understanding and agreement. All questions were answered. Thank you for involving us in the care of your patient. Please call with any questions. Subjective Principal diagnosis: STEMI Interval history: Denies chest pain, SOB, bleeding. Objective Vital Signs, Last 4 Hours Temp Pulse Resp BP Pulse Ox 12/26/18 10:00 74 16 113/64 98 12/26/18 09:00 83 16 114/54 96 12/26/18 08:00 88 15 130/106 95 12/26/18 07:35 97.9 F 12/26/18 07:00 89 22 128/68 95 General: Conversant, No Apparent Distress HEENT: Atraumatic, Normocephaly, Mucus Membranes Moist Neck: No JVD, Normal carotid pulses Cardiac: Reg Rate and Rhythm, Normal S1 and S2, No Murmur Lungs: Normal Breath Sounds, No Wheeze, Rales, Rhonchi Neuro: Alert and responsive, No focal deficits noted Abdomen: Soft, Non-Tender Skin: No rashes noted on visualized skin Musculoskeletal: No Chest Wall Tenderness Extremities: No Clubbing, No Cyanosis, No Edema, Normal Pulses Results 12/25/18 03:52 12/25/18 03:52 Laboratory Tests 12/25/18 12/25/18 03:52 03:52 Hgb 12.4 L Hct 38.8 BUN 24 H Creatinine 0.95 Est GFR (Non-Af Amer) > 60 Laboratory Tests 12/24/18 23:45 Troponin I 0.16 H* Impressions Echocardiogram 12/25/18 14:00 Impressions: LVEF 40%. LV segmental wall motion abnormality. Mild to moderate concentric left ventricular hypertrophy. Atypical septal motion. Indeterminate diastolic function. Definity echo contrast was used. There is no LV thrombus. Right ventricular size is dilated with normal systolic function. Bioprosthetic aortic valve not well visualized. Normal Doppler function. Mild mitral regurgitation. Mild pulmonic regurgitation. No pulmonary hypertension. Left Ventricular Wall Motion: Rest Echo Findings The apex, apical anterior, apical septal, mid anterior septal and basal anterior septal murguia were hypokinetic. All other wall segments showed normal motion. 12/25/18: Procedures Performed: Transradial PCI of Acute OK (mLAD BMS x1) LEFT HEART CATH Indications: STEMI ACS <= 24 hrs Immediate PCI for STEMI Impressions: There is severe one vessel coronary artery disease. Patient had successful PTCA/Bare Metal Stent placement in the proximal-mid LAD Previously jailed diagonal in the proximal mid LAD Nephrolithiasis with planned surgical intervention Sp TAVR Recommendations: Plavix (Clopidogrel) 75 mg PO Daily. Optimal medical therapy of patient's disease. Aggressive risk factor modification. If continued symptoms despite medical therapy, consider reattempt of diagonal intervention Coronary Dominance: right Lesion Findings/Interventions * Left Main Coronary Artery The LMCA is angiographically free of disease. * Left Anterior Descending There is a 18 mm long, 70% stenosis in the Proximal LAD. The lesion has a JEANNE flow of 0 and has no thrombus present. An intervention was performed on the Proximal LAD with a final stenosis of 0%. There were no lesion complications. The final JEANNE flow was 3. There is a 15 mm long, 100% stenosis in the Mid LAD. The lesion has a JEANNE flow of 0 and has thrombus present. An intervention was performed on the Mid LAD with a final stenosis of 0%. There were no lesion complications. The final JEANNE flow was 3. There is a 95-99% stenosis in the 1st Diagonal. Jailed vessel. JEANNE 2 flow. * Circumflex There is a 50-60% stenosis in the Distal Circumflex. There is a 50-60% stenosis in the 1st Marginal. * Right Coronary Artery There is a 30% stenosis in the Proximal RCA. Active Medications Acetaminophen (Tylenol) 500 mg PO Q6HR PRN PRN Reason: Mild Pain Stop: 06/26/19 00:24 Aspirin (Aspirin) 81 mg PO DAILY MELLISA Stop: 06/26/19 09:01 Last Admin: 12/26/18 08:03 Dose: 81 mg Documented by: Dextrose/Water (Dextrose 50% (Syg)) 25 ml IVP AD PRN PRN Reason: Hypoglycemia Stop: 06/26/19 01:19 Enoxaparin Sodium (Lovenox) 40 mg SQ 0600 MELLISA Stop: 06/26/19 06:01 Last Admin: 12/26/18 06:28 Dose: 40 mg Documented by: Glucagon (Glucagen) 1 mg IM ONCE PRN PRN Reason: Hypoglycemia Stop: 06/26/19 01:19 Glucose (Gluctose) 15 gm PO ONCE PRN PRN Reason: Hypoglycemia Stop: 06/26/19 01:19 Glucose (Gluctose) 30 gm PO ONCE PRN PRN Reason: Hypoglycemia Stop: 06/26/19 01:19 Tirofiban/Sodium Chloride (Aggrastat 12.5 Mg/250 Ml) 12.5 mg in 250 mls @ 16.737 mls/hr IVC .[id number] [facility] Stop: 06/26/19 01:16 Last Admin: 12/26/18 07:57 Dose: Not Given Documented by: Nitroglycerin (Nitroglycerin Premix 25 Mg/250 Ml) 25 mg in 250 mls @ 6 mls/hr IVC .Q24H MELLISA; Protocol Stop: 06/26/19 01:31 Last Titration: 12/26/18 10:07 Dose: 5 mcg/min, 3 mls/hr Documented by: Dextrose (Dextrose 5%) 1,000 mls @ 100 mls/hr IVC .Q10H PRN PRN Reason: HYPOGLYCEMIA Stop: 06/26/19 01:19 Insulin Human Lispro (Humalog) 0 units SQ HS MELLISA; Protocol Stop: 06/26/19 21:01 Last Admin: 12/25/18 19:51 Dose: 4 units Documented by: Insulin Human Lispro (Humalog) 0 units SQ TIDAC [facility]; Protocol Stop: 06/26/19 07:31 Last Admin: 12/26/18 08:07 Dose: 6 units Documented by: Metoprolol Tartrate (Lopressor) 25 mg PO BID [facility] Stop: 06/26/19 21:01 Last Admin: 12/26/18 08:03 Dose: 25 mg Documented by: Morphine Sulfate (Morphine) 2 mg IVP Q4HR PRN; Protocol PRN Reason: Chest Pain Stop: 06/26/19 01:18 Last Admin: 12/25/18 19:42 Dose: 2 mg Documented by: Ondansetron HCl (Zofran) 4 mg IVP Q8HR PRN PRN Reason: Nausea And Vomiting Stop: 06/26/19 00:24 Ranolazine (Ranexa) 1,000 mg PO BID [facility] Stop: 06/27/19 09:01 Last Admin: 12/26/18 08:03 Dose: 1,000 mg Documented by: Rosuvastatin Calcium (Crestor) 40 mg PO HS [facility] Stop: 06/26/19 21:01 Last Admin: 12/25/18 19:42 Dose: 40 mg Documented by: Ticagrelor (Brilinta) 90 mg PO BID [facility] Stop: 06/26/19 09:01 Last Admin: 12/26/18 08:03 Dose: 90 mg Documented by: - Imaging and Cardiology Echo: report reviewed Cardiac cath: report reviewed - EKG Interpretation EKG results cardiology: sinus rhythm, no diagnostic ischemia Consult Discharge Plan - Plan Referrals: Lavell Crawford Jr, MD [Primary Care Provider] -
[2018-12-26] MEDS ORDERED: Dextrose Gel 15 GM/37.5 ML TUBE PO PRN ×2 (11:50)
[2018-12-26] MEDS ORDERED: *HR* Dextrose 50 % in Water (Syg) 50 ML SYRINGE IVP PRN (11:50)
[2018-12-26] MEDS ORDERED: Morphine Sulfate 2 MG/ML SYRINGE IVP PRN (11:50)
[2018-12-26] MEDS ORDERED: D5% in Water 1,000 ML IVC PRN (11:50)
[2018-12-26] MEDS ORDERED: Ondansetron 4 MG/2 ML VIAL IVP PRN (11:50)
--- NOTE | 2018-12-26 13:06 | Electrocardiograph Report ---
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
--- NOTE | 2018-12-26 13:06 | Electrocardiograph Report ---
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
--- NOTE | 2018-12-26 13:27 | Electrocardiograph Report ---
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
[2018-12-26] MEDS: Ranolazine 500 MG TAB.ER.12H PO SCH (20:32)
[2018-12-26] MEDS ORDERED: Insulin LISPRO 300 UNITS/3 ML VIAL SQ SCH (21:00)
[2018-12-27] MEDS ORDERED: *HR* Enoxaparin 40 MG/0.4 ML SYRINGE SQ SCH (06:00)
[2018-12-27 07:49] VITALS: BP 134/78
[2018-12-27] MEDS: Insulin LISPRO 300 UNITS/3 ML VIAL SQ SCH (07:51)
[2018-12-27] MEDS: *HR* Ticagrelor 90 MG TABLET PO SCH (07:53)
[2018-12-27] MEDS: Ranolazine 500 MG TAB.ER.12H PO SCH (07:53)
[2018-12-27] MEDS ORDERED: Metoprolol XL (24 HR) Succ 50 MG TAB.ER.24H PO SCH ×2 (09:00)
[2018-12-27] MEDS ORDERED: Aspirin 81 MG TAB.CHEW PO SCH (09:00)
--- NOTE | 2018-12-27 10:24 | Discharge Summary ---
Date of Encounter: 12/27/18 Time of Encounter: 10:22 - Discharge Diagnosis (1) STEMI (ST elevation myocardial infarction) Priority: Primary Status: Acute Comments: Emergent [facility] 12/25/18 * Left Main Coronary Artery The LMCA is angiographically free of disease. * Left Anterior Descending There is a 18 mm long, 70% stenosis in the Proximal LAD. The lesion has a JEANNE flow of 0 and has no thrombus present. An intervention was performed on the Proximal LAD with a final stenosis of 0%. There were no lesion complications. The final JEANNE flow was 3. There is a 15 mm long, 100% stenosis in the Mid LAD. The lesion has a JEANNE flow of 0 and has thrombus present. An intervention was performed on the Mid LAD with a final stenosis of 0%. There were no lesion complications. The final JEANNE flow was 3. There is a 95-99% stenosis in the 1st Diagonal. Jailed vessel. JEANNE 2 flow. * Circumflex There is a 50-60% stenosis in the Distal Circumflex. There is a 50-60% stenosis in the 1st Marginal. * Right Coronary Artery There is a 30% stenosis in the Proximal RCA. Qualifiers: Involved coronary artery: LAD coronary artery Qualified Code(s): I21.02 - ST elevation (STEMI) myocardial infarction involving left anterior descending coronary artery (2) Ureteral stone with hydronephrosis Priority: Secondary Status: Acute Comments: BMS utilized as necessary. - Hospital Course Hospital course: Mr. 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 Emergent [facility] 12/25/18 with BMS to Prox LAD. Echo reviewed EF 40%, Bioprosthetic aortic valve not well visualized. Mild mitral regurgitation, Mild pulmonic regurgitation. No pulmonary hypertension. On DAPT-Brilinta, ASA, Education given to continue uninterrupted DAPT for minimum 30 days. Will f/u as outpatient for further medical management. On statin, ranexa, ACEI, BB. continue as outpatient. Denies chest pain. Remains asymptomatic on medical therapy, Per [facility] report will consider reattempt of diagonal intervention if symptoms return. Discussed with the patient and Dr. Gracia. Will discharge on optimal medical therapy of patient's disease and aggressive risk factor modification. Aware of previously jailed diagonal in the proximal mid LAD. Will continue to monitor as outpatient. [facility] rehab ordered. Will schedule f/u 5-7 days. Time spent discussing smoking cessation with patient: 3 to 10 minutes - Time Spent with Patient Total time spent providing and/or coordinating discharge services: Greater than 30 minutes (D/c summary, medical reconcilliation, access site care, education.) - Discharge Medications Prescriptions: New Ticagrelor [Brilinta] 90 mg PO BID 30 Days #60 tablet Rosuvastatin [Crestor] 40 mg PO HS 30 Days #30 tablet Ranolazine [Ranexa] 1,000 mg PO BID 30 Days #60 tab.er.12h Metoprolol XL (24 HR) Succ [Toprol Xl] 50 mg PO DAILY 30 Days #30 tab.er.24h Lisinopril [Zestril] 2.5 mg PO DAILY 30 Days #30 tablet Continued Metformin HCl 1,000 mg PO BID Glimepiride [Amaryl] 4 mg PO QAM Levomefolate/B6/B12/Algal Oil [Metanx Capsule] 1 cap PO BID Aspirin [Lo-Dose Aspirin EC] 81 mg PO QAM Potassium Chloride [Klor-Con 10] 10 meq PO DAILY Discontinued Simvastatin [Zocor] 20 mg PO QPM Atenolol [Tenormin] 50 mg PO QAM Amlodipine Besylate 5 mg PO HS Clopidogrel Bisulfate [Plavix] 75 mg PO DAILY Home Medications: Aspirin [Lo-Dose Aspirin EC] 81 mg PO QAM 07/25/18 [History] Glimepiride [Amaryl] 4 mg PO QAM 07/25/18 [History] Levomefolate/B6/B12/Algal Oil [Metanx Capsule] 1 cap PO BID 07/25/18 [History] Metformin HCl 1,000 mg PO BID 07/25/18 [History] Potassium Chloride [Klor-Con 10] 10 meq PO DAILY 10/27/18 [History] Lisinopril [Zestril] 2.5 mg PO DAILY 30 Days #30 tablet 12/27/18 [Rx] Metoprolol XL (24 HR) Succ [Toprol Xl] 50 mg PO DAILY 30 Days #30 tab.er.24h 12/27/18 [Rx] Ranolazine [Ranexa] 1,000 mg PO BID 30 Days #60 tab.er.12h 12/27/18 [Rx] Rosuvastatin [Crestor] 40 mg PO HS 30 Days #30 tablet 12/27/18 [Rx] Ticagrelor [Brilinta] 90 mg PO BID 30 Days #60 tablet 12/27/18 [Rx] Allergies/Adverse Reactions: Allergy/AdvReac Type Severity Reaction Status Date / Time bee venom protein (honey bee) Allergy Severe Anaphylaxis Verified 12/25/18 17:23 Date of admission: 12/25/18 00:03 Primary care physician: Lavell Crawford Jr, MD Consults: 12/25/18 00:23 Consult to Cardiac Rehabilitation-Phase1 [CONS] Routine Comment: Reason for Consult: AMI Call Completed: Yes Consult to Nurse Navigator [CONS] Routine Comment: Discharging clinician: Lucas Amos Anticipated date of discharge: 12/27/18 Physical Examination Vital Signs, Last 4 Hours Temp Pulse Resp BP Pulse Ox 12/27/18 07:42 97.8 F 82 16 134/78 93 General: Conversant, No Apparent Distress HEENT: Atraumatic, Normocephaly, Mucus Membranes Moist Neck: No JVD, Normal carotid pulses Cardiac: Reg Rate and Rhythm, Normal S1 and S2, No Murmur Lungs: Normal Breath Sounds, No Wheeze, Rales, Rhonchi Neuro: Alert and responsive, No focal deficits noted Abdomen: Soft, Non-Tender Skin: No rashes noted on visualized skin Musculoskeletal: No Chest Wall Tenderness Extremities: No Clubbing, No Cyanosis, No Edema, Normal Pulses - Patient Status Disposition: Home, Self-Care Condition: Serious Functional capacity at discharge: independent ambulation Overall status at discharge: patient is progressing back to baseline - Discharge Instructions Follow Up With: Taurus Willard MD [Partnered Physician] - (Per the cardiology office they will call the patient at home with a follow up appointment) Lavell Crawford Jr, MD [Primary Care Provider] - 01/04/19 10:00 am Forms: ED Satisfaction Letter Additional Instructions: RISK FACTORS: STOP SMOKING: If you smoke, STOP. Smoking or tobacco use significantly increases your risk of heart disease because nicotine causes the arteries to narrow or constrict. It also causes fats to stick to the artery. Your chances of having a heart attack are greatly increased if you continue to smoke. For more information, call the education line for smoking cessation 8-603-VQQMRIJ EAT A LOW FAT/CHOLESTEROL/SODIUM DIET: This diet may help reduce your chances of having a heart attack. LIFTING: With affected extremity: Avoid bending, pushing off and lifting more than 2 pounds for 24 hours The following 48 hours, avoid lifting anything more than 5 pounds Avoid strenuous activity or repetitive motions ACTIVITY: You may walk or climb stairs as tolerated You can resume sexual activity as tolerated In general, you are encouraged to engage in a minimum of 30 minutes or more of moderate intensity physical activity, such as brisk walking, daily or at least 3-4 times weekly BATHING Do not submerge the site into water (bath tub, hot tub, swimming pool, dishes) for 1 week. This can be a source for infection into the blood stream. You may shower after 24 hours SITE CARE: After 24 hours, you may remove the dressing and leave the site open to air. Keep the site clean and dry. Clean gently and pat dry. You can expect bruising and tenderness that gradually resolve within a week or two. Return to work as instructed per your physician Resume driving as instructed per physician Keep all scheduled follow up appointments Resume medications as instructed IMPORTANT: If prescribed a Platelet Aggregation Inhibitor such as, Plavix, Brilinta or Effient: Duration of therapy is minimum one year These medications are often used in combination with Aspirin in prevention of future heart attacks Never discontinue unless consult with your Scout STROKE (CVA) Risk factors for a stroke are: Age, cigarette smoking, diabetes, excessive alcohol consumption, family history, high blood pressure, overweight, physical inactivity, prior stroke, heart attack, diagnosis of carotid artery stenosis or other artery disease. Warning signs: Sudden numbness or weakness of the face, arm or leg; especially on one side of the body, sudden confusion, trouble speaking or understanding, sudden trouble seeing in one or both eyes, sudden trouble walking, dizziness, loss of balance or coordination, sudden severe headache with no cause. Call 911 or go to the Emergency Room. CONGESTIVE HEART FAILURE: If you have been diagnosed with Congestive Heart Failure (CHF) and your symptoms return, make an appointment with your physician Weigh yourself daily. Notify your physician if you have a weight gain of two or more pounds in one day or five or more pounds in one week. If you experience any difficulty breathing, please call 911 BLEEDING: Although the risk of bleeding is minimal, it can happen. If you have any bleeding from the site, apply firm pressure above the puncture site for 10-15 minutes. If the bleeding does not stop, continue manual pressure and call 911 CARDIAC REHABILITATION: If you have had a heart attack or cardiac stents placed, please ask your automatic paint sprayer operator if Cardiac Rehabilitation is right for you. Cardiac Rehabilitation is recommended, beneficial to your health and can improve the following: strengthen your heart, improve ejection fraction, weight reduction, decrease cholesterol levels, lower blood pressure, lower blood sugar, improve stamina and enhance self-image. If you have any questions please call [facility] at [phone]. Contact [facility] ( ) if: You develop a fever greater than 101 degrees Fahrenheit Your site becomes reddened or has any drainage You have an increase in pain or burning at the site or if a large knot forms at the site. If you experience chest pain, shortness of breath, dizziness, or extreme tiredness, stop the activity and rest. Please notify [facility] office if you experience any of these symptoms and they are not relieved by rest please call 911! - Diet and Activity Activity: increase activity as tolerated Diet: low fat, low cholesterol, low salt diet
== END 2018-12-27 13:13 | disposition home or self-care (01) | DRG 249 ==
LOC: EMEROOARM 23:28 → ICNU 12-25 00:03 → 2NNU 12-26 17:58
PROVIDERS: ADMIT Emergency Medicine; ATTEND Emergency Medicine

== ENCOUNTER 2018-12-29 13:29 | Inpatient (IN) ==
[2018-12-29] MEDS ORDERED: Aspirin 325 MG TABLET PO ONE (13:56)
--- NOTE | 2018-12-29 14:03 | Emergency Department Note ---
Disposition Clinical Impression: Elevated troponin, NSTEMI (non-ST elevation myocardial infarction) Chest pain Qualifiers: Chest pain type: chest pain on breathing Qualified Code(s): R07.1 - Chest pain on breathing; R07.81 - Pleurodynia Disposition: Admitted As Inpatient Condition: Good Referrals: Lavell Crawford Jr, MD [Primary Care Provider] - Forms: ED Satisfaction Letter Time of Disposition: 15:40 General Adult HPI - General Chief complaint: ED Shortness of Breath/Dyspnea Stated complaint: ROSELYN Time Seen by Provider: 12/29/18 13:43 Source: patient, EMS Limitations: no limitations Nursing Notes Reviewed: Yes Vital Signs Reviewed: Yes - History of Present Illness HPI Narrative: 78 yo man w/ constant chest heaviness since being discharged from lab on 12/27/18 s/p cardiac stent on Wednesday, six days ago. Today he also became SOB. He denies FRANK, AMS, LOC, [place], dizziness, falls, N/V, diaphoresis, recent illness, dysuria, abdominal pain, increased swelling and other symptoms. He said he is compliant with his medications. He is on anticoagulation (Brilinta) and Ranexa. He quit smoking in the 1960s. He was brought in by [facility], received a breathing treatment, a baby aspirin and put on O2 by PA. Pain Scale: 4 - Related Data Home Medications Medication Instructions Recorded Confirmed Aspirin [Lo-Dose Aspirin EC] 81 mg PO QAM 07/25/18 12/25/18 Glimepiride [Amaryl] 4 mg PO QAM 07/25/18 12/25/18 Levomefolate/B6/B12/Algal Oil 1 cap PO BID 07/25/18 12/25/18 [Metanx Capsule] Metformin HCl 1,000 mg PO BID 07/25/18 12/25/18 Potassium Chloride [Klor-Con 10] 10 meq PO DAILY 10/27/18 12/25/18 Previous Rx's Medication Instructions Recorded Lisinopril [Zestril] 2.5 mg PO DAILY 30 Days #30 tablet 12/27/18 Metoprolol XL (24 HR) Succ [Toprol 50 mg PO DAILY 30 Days #30 12/27/18 Xl] tab.er.24h Ranolazine [Ranexa] 1,000 mg PO BID 30 Days #60 12/27/18 tab.er.12h Rosuvastatin [Crestor] 40 mg PO HS 30 Days #30 tablet 12/27/18 Ticagrelor [Brilinta] 90 mg PO BID 30 Days #60 tablet 12/27/18 Allergies Allergy/AdvReac Type Severity Reaction Status Date / Time bee venom protein (honey bee) Allergy Severe Anaphylaxis Verified 12/25/18 17:23 All systems ED: reviewed and negative except as stated. Cardiovascular: Reports: chest pain Respiratory: Reports: dyspnea Past Medical History - Past Medical History Attestation: Yes The following information was validated with the patient. Source: patient, old records reviewed Medical history: Reports: arthritis, CHF, coronary artery disease, diabetes, GERD, GI bleed, hyperlipidemia, hypertension, kidney stones, migraine, myocardial infarction, TIA, valvular heart disease Psychiatric history: Reports: anxiety, depression - Social History Smoking Status: Former smoker Smokeless Tobacco Status: No Alcohol use: Reports: none Drug use: Reports: none Physical Exam PE Gen: AOx3, NAD HEENT: No lymphadenopathy, no erythema, no edema. Pupils equal and reactive. Cardio: Regular rate and rhythm, no murmur, no peripheral edema, good perfusion to all extremities, no cyanosis Resp: Equal breath sounds bilaterally, no wheeze, no cough on initial exam. Approximately 20 minutes later +wheezing bilaterally. GI: Abdomen soft, nondistended, nontender to palpation. No ecchymoses, no rash. : No suprapubic tenderness or distention MSK: Normal ROM, no joint swelling or erythema Neuro: CNI-XII intact, strength and sensation WNL Psych: Appropriate affect - General Limitations: no limitations General appearance: alert, in no apparent distress Course Course Narrative: VS stable. Patient given fentanyl for pain in light of soft BP, given another breathing treatment. He became diaphoretic about an hour into his presentation to the ED. Cardiac workup initiated. - Reevaluation(s) Reevaluation #1: Diaphoretic, waiting on research laboratory specialist. Able to talk without difficulty, VS stable and WNL. IV heparin started, patient also given Brilinta per cardiology's request. Time: 15:35 Vital Signs Temperature 98.6 F 12/29/18 13:35 Pulse Rate 81 12/29/18 13:35 Respiratory Rate 12/29/18 13:35 Blood Pressure 130/74 12/29/18 13:35 O2 Sat by Pulse Oximetry 100 12/29/18 13:35 Temperature 98.6 F 12/29/18 13:35 Pulse Rate 74 12/29/18 15:19 Respiratory Rate 18 12/29/18 15:19 Blood Pressure 133/82 12/29/18 15:19 O2 Sat by Pulse Oximetry 100 12/29/18 15:19 Oxygen Delivery Oxygen Delivery Room Air Medical Decision Making - MDM Narrative Medical decision making narrative: Troponin elevated at 15. Consulted IC again once result was in and in light of that, symptoms as well as EKG admitted patient for heart catheterization. Patient agreed with plan. - Medical Records Medical records reviewed: Yes I reviewed the patient's medical records. - Lab Data Lab results reviewed: Yes I reviewed the patient's lab results. Result diagrams: 12/29/18 13:47 12/29/18 13:47 Lab Results 12/29/18 12/29/18 12/29/18 Range/Units 13:47 13:47 13:47 WBC 12.4 H (4.3-11.1) K/mcL RBC 3.80 L (4.19-5.50) M/mcL Hgb 10.7 L D (12.9-16.9) g/dL Hct 33.2 L (37.5-50.1) % MCV 87.4 (83.0-100.0) fL MCH 28.2 (28.0-33.3) pg MCHC 32.2 (31.6-35.5) g/dL RDW 16.8 H (11.5-14.5) % Plt Count 322 (140-400) K/mcL MPV 10.3 (9.4-12.4) fL Immature Gran % 0.3 (0-4) % Seg Neutrophils % 92.3 % Lymphocytes % 2.8 % Monocytes % 4.3 % Eosinophils % 0.1 % Basophils % 0.2 % Neutrophils # 11.5 H (1.6-8.9) K/mcL Lymphocytes # 0.4 L (0.6-4.6) K/mcL Monocytes # 0.5 (0.0-1.3) K/mcL Eosinophils # 0.0 (0.0-0.6) K/mcL Basophils # 0.0 (0.0-0.2) K/mcL PT 14.7 H (9.4-12.1) Seconds INR 1.3 APTT 33.6 (26.0-36.0) Seconds Sodium 136 (136-145) mEq/L Potassium 4.5 (3.5-5.1) mEq/L Chloride 98 (98-107) mEq/L Carbon Dioxide 22 L (23-29) mEq/L BUN 37 H (8-23) mg/dL Creatinine 1.38 H (0.70-1.30) mg/dL Est GFR ( Amer) > 60 (> 60) Est GFR (Non-Af Amer) 50 L (> 60) BUN/Creatinine Ratio 27 H (6-26) Glucose 340 H (70-105) mg/dL Calculated Osmolality 304 H (280-300) Calcium 9.4 (8.6-10.3) mg/dL Total Bilirubin 2.3 H (0.3-1.0) mg/dL AST 38 (13-39) Units/L ALT 30 (7-52) Units/L Alkaline Phosphatase 80 (34-104) Units/L Troponin I 15.79 H* (< 0.04) ng/mL Serum Total Protein 6.8 (6.4-8.9) g/dL Albumin 4.0 (3.5-5.7) g/dL Globulin 2.8 (2.4-3.5) g/dL Albumin/Globulin Ratio 1.4 (1.1-2.2) - Radiology Data Radiology results reviewed: Yes I reviewed the patient's radiology results. Chest X-Ray 12/29/18 14:02 IMPRESSION: 1. Mild perihilar vascular congestion without overt failure. D/ / 12/29/2018 14:43:00 Mckenna Garcia MD / [facility] Interpreting Provider: Mckenna Garcia MD - EKG Data EKG #1 EKG attestation: Yes I reviewed and interpreted this EKG. EKG shows normal: sinus rhythm Rate: normal Interpretation: unchanged when compared to prior tracing (date) (12/25/18), nonspecific ST-T wave changes
[2018-12-29 14:08] LABS: Basophils % 0.2 %; Eosinophils % 0.1 %; Hematocrit 33.2 % (37.5-50.1); Immature Granulocytes % 0.3 % (0-4); Lymphocytes # 0.4 K/mcL (0.6-4.6); Lymphocytes % 2.8 %; Mean Corpuscular HGB Conc 32.2 g/dL (31.6-35.5); Mean Corpuscular Hemoglobin 28.2 pg (28.0-33.3); Mean Corpuscular Volume 87.4 fL (83.0-100.0); Mean Platelet Volume 10.3 fL (9.4-12.4); Monocytes # 0.5 K/mcL (0.0-1.3); Monocytes % 4.3 %; Neutrophils # 11.5 K/mcL (1.6-8.9); Platelet Count 322 K/mcL (140-400); Red Cell Distribution Width 16.8 % (11.5-14.5); Segmented Neutrophils % 92.3 %; White Blood Count 12.4 K/mcL (4.3-11.1)
[2018-12-29] MEDS ORDERED: *HR* FentaNYL (PF) 100 MCG/2 ML VIAL IVP ONE (14:10)
[2018-12-29 14:13] LABS: Hemoglobin 10.7 g/dL (12.9-16.9)
[2018-12-29 14:14] LABS: INR 1.3; Prothrombin Time 14.7 Seconds (9.4-12.1)
--- NOTE | 2018-12-29 14:16 | Emergency Department Note ---
Disposition Clinical Impression: Elevated troponin, NSTEMI (non-ST elevation myocardial infarction) Chest pain Qualifiers: Chest pain type: chest pain on breathing Qualified Code(s): R07.1 - Chest pain on breathing Disposition: Admitted As Inpatient Condition: Fair Referrals: Lavell Crawford Jr, MD [Primary Care Provider] - Forms: ED Satisfaction Letter Time of Disposition: 15:14 General Adult HPI - General Chief complaint: ED Shortness of Breath/Dyspnea Stated complaint: ROSELYN Time Seen by Provider: 12/29/18 13:43 Source: patient, EMS Limitations: no limitations Nursing Notes Reviewed: Yes Vital Signs Reviewed: Yes - History of Present Illness Pain Scale: 4 - Related Data Home Medications Medication Instructions Recorded Confirmed Aspirin [Lo-Dose Aspirin EC] 81 mg PO QAM 07/25/18 12/25/18 Glimepiride [Amaryl] 4 mg PO QAM 07/25/18 12/25/18 Levomefolate/B6/B12/Algal Oil 1 cap PO BID 07/25/18 12/25/18 [Metanx Capsule] Metformin HCl 1,000 mg PO BID 07/25/18 12/25/18 Potassium Chloride [Klor-Con 10] 10 meq PO DAILY 10/27/18 12/25/18 Previous Rx's Medication Instructions Recorded Lisinopril [Zestril] 2.5 mg PO DAILY 30 Days #30 tablet 12/27/18 Metoprolol XL (24 HR) Succ [Toprol 50 mg PO DAILY 30 Days #30 12/27/18 Xl] tab.er.24h Ranolazine [Ranexa] 1,000 mg PO BID 30 Days #60 12/27/18 tab.er.12h Rosuvastatin [Crestor] 40 mg PO HS 30 Days #30 tablet 12/27/18 Ticagrelor [Brilinta] 90 mg PO BID 30 Days #60 tablet 12/27/18 Allergies Allergy/AdvReac Type Severity Reaction Status Date / Time bee venom protein (honey bee) Allergy Severe Anaphylaxis Verified 12/25/18 17:23 Past Medical History - Past Medical History Medical history: Reports: arthritis, CHF, coronary artery disease, diabetes, GERD, GI bleed, hyperlipidemia, hypertension, kidney stones, migraine, myocardial infarction, TIA, valvular heart disease Psychiatric history: Reports: anxiety, depression - Social History Smoking Status: Former smoker Smokeless Tobacco Status: No Alcohol use: Reports: none Drug use: Reports: none Physical Exam - General Limitations: no limitations General appearance: alert, in no apparent distress Course Vital Signs Temperature 98.6 F 12/29/18 13:35 Pulse Rate 81 12/29/18 13:35 Respiratory Rate 12/29/18 13:35 Blood Pressure 130/74 12/29/18 13:35 O2 Sat by Pulse Oximetry 100 12/29/18 13:35 Temperature 98.6 F 12/29/18 13:35 Pulse Rate 74 12/29/18 15:19 Respiratory Rate 18 12/29/18 15:19 Blood Pressure 133/82 12/29/18 15:19 O2 Sat by Pulse Oximetry 100 12/29/18 15:19 Oxygen Delivery Oxygen Delivery Room Air Medical Decision Making - Medical Records Medical records reviewed: Yes I reviewed the patient's medical records. - Lab Data Lab results reviewed: Yes I reviewed the patient's lab results. Result diagrams: 12/29/18 13:47 12/29/18 13:47 Lab Results 12/29/18 12/29/18 12/29/18 Range/Units 13:47 13:47 13:47 WBC 12.4 H (4.3-11.1) K/mcL RBC 3.80 L (4.19-5.50) M/mcL Hgb 10.7 L D (12.9-16.9) g/dL Hct 33.2 L (37.5-50.1) % MCV 87.4 (83.0-100.0) fL MCH 28.2 (28.0-33.3) pg MCHC 32.2 (31.6-35.5) g/dL RDW 16.8 H (11.5-14.5) % Plt Count 322 (140-400) K/mcL MPV 10.3 (9.4-12.4) fL Immature Gran % 0.3 (0-4) % Seg Neutrophils % 92.3 % Lymphocytes % 2.8 % Monocytes % 4.3 % Eosinophils % 0.1 % Basophils % 0.2 % Neutrophils # 11.5 H (1.6-8.9) K/mcL Lymphocytes # 0.4 L (0.6-4.6) K/mcL Monocytes # 0.5 (0.0-1.3) K/mcL Eosinophils # 0.0 (0.0-0.6) K/mcL Basophils # 0.0 (0.0-0.2) K/mcL PT 14.7 H (9.4-12.1) Seconds INR 1.3 APTT 33.6 (26.0-36.0) Seconds Sodium 136 (136-145) mEq/L Potassium 4.5 (3.5-5.1) mEq/L Chloride 98 (98-107) mEq/L Carbon Dioxide 22 L (23-29) mEq/L BUN 37 H (8-23) mg/dL Creatinine 1.38 H (0.70-1.30) mg/dL Est GFR ( Amer) > 60 (> 60) Est GFR (Non-Af Amer) 50 L (> 60) BUN/Creatinine Ratio 27 H (6-26) Glucose 340 H (70-105) mg/dL Calculated Osmolality 304 H (280-300) Calcium 9.4 (8.6-10.3) mg/dL Total Bilirubin 2.3 H (0.3-1.0) mg/dL AST 38 (13-39) Units/L ALT 30 (7-52) Units/L Alkaline Phosphatase 80 (34-104) Units/L Troponin I 15.79 H* (< 0.04) ng/mL Serum Total Protein 6.8 (6.4-8.9) g/dL Albumin 4.0 (3.5-5.7) g/dL Globulin 2.8 (2.4-3.5) g/dL Albumin/Globulin Ratio 1.4 (1.1-2.2) - Radiology Data Radiology results reviewed: Yes I reviewed the patient's radiology results. Chest X-Ray 12/29/18 14:02 IMPRESSION: 1. Mild perihilar vascular congestion without overt failure. D/ / 12/29/2018 14:43:00 Mckenna Garcia MD / [email or web address] Interpreting Provider: Mckenna Garcia MD - EKG Data EKG #1 EKG attestation: Yes I reviewed and interpreted this EKG. EKG results narrative: EKG shows normal sinus rhythm with ventricular rate of 83. Interventricular conduction delay, likely left bundle branch block. ST elevations in V1 through V3. No change from previous EKG dated 12/25/2018. EKG was reviewed by the electric welder, Dr. Minaya, and he agrees this is likely LBBB and recommends hospitalist admission with medical management. Critical Care Time Critical Care Time: Yes Total Critical Care Time: 40 Attestation: Critical care performed: Time is exclusive of separately billable procedures. Time includes: direct patient care, patient reassessment, coordination of patient care, interpretation of data (laboratory data, radiology data, and respiratory data), review of patient's medical records, medical consultation and documentation of patient care. Procedures included in critical care time: Procedures excluded from critical care time: Attestation Statement - Attestation Attestation: I, Romario Bright MD, personally evaluated this patient and discussed their management with the resident physician. I reviewed the resident's note and agree with the documented findings, medical decision making, and plan of care. 78-year-old male presents to the emergency department with a complaint of shortness of breath which started last night. He also complains of some mid substernal chest pressure which he states he has pretty much all the time and is about is his baseline normal chest pain at present. He does state the pressure in his chest got worse last night and was worse all night but is back to about normal now. Patient was just seen here 5 days ago with a STEMI and was taken to [facility] and had coronary artery stents placed. Patient denies prior history of CHF. He states that last night he noticed when he would lie down he was more short of breath with gurgling and symptoms improved with sitting up. Also has increased swelling of his feet and ankles. On examination patient is a well-developed well-nourished well-appearing elderly male in no acute distress. He is alert and oriented 3. There is no cyanosis or diaphoresis. Breath sounds are decreased in the bases with a few faint rales bilaterally. No wheezes. Heart regular rate and rhythm. Abdomen soft and nontender with normal bowel sounds. One plus pedal edema bilaterally. EKG shows normal sinus rhythm with ventricular rate of 83. Interventricular conduction delay, likely left bundle branch block. ST elevations in V1 through V3. No change from previous EKG dated 12/25/2018. EKG was reviewed by the electric welder, Dr. Minaya, and he agrees this is likely LBBB and recommends hospitalist admission with medical management. Troponin returned at 15. I called the interventionalist, Dr. Minaya back and discussed this with him. He is going to go ahead and take the patient to the cardiac catheter lab. We did go ahead and give the patient Brilinta and heparin bolus. He has already had aspirin. Dr. Minaya advised that he would just have the catheter lab nurses come over in a few minutes and get the patient and we did not need to call a STEMI alert. However a short time later someone from cardiology called back and advised to go ahead and call a STEMI alert just to get things moving faster at the catheter lab.
[2018-12-29 14:17] LABS: Activated Partial Thrombo Time 33.6 Seconds (26.0-36.0)
[2018-12-29] MEDS ORDERED: Ipratropium/Albuterol Neb 3 ML IH ONE (14:21)
[2018-12-29 14:42] LABS: Alanine Aminotransferase 30 Units/L (7-52); Albumin/Globulin Ratio 1.4 (1.1-2.2); Alkaline Phosphatase 80 Units/L (34-104); Aspartate Amino Transferase 38 Units/L (13-39); BUN/Creatinine Ratio 27 (6-26); Bilirubin,Total 2.3 mg/dL (0.3-1.0); Blood Urea Nitrogen 37 mg/dL (8-23); Calcium 9.4 mg/dL (8.6-10.3); Carbon Dioxide 22 mEq/L (23-29); Chloride 98 mEq/L (98-107); Globulin 2.8 g/dL (2.4-3.5); Glucose 340 mg/dL (70-105); Osmolality,Calculated 304 (280-300); Potassium 4.5 mEq/L (3.5-5.1); Sodium 136 mEq/L (136-145); Total Protein 6.8 g/dL (6.4-8.9); Troponin I 15.79 ng/mL (< 0.04); eGFR For African Americans > 60 (> 60); eGFR For Non-African Americans 50 (> 60)
[2018-12-29] MEDS ORDERED: *HR* Ticagrelor 90 MG TABLET PO ONE (14:57)
[2018-12-29] MEDS ORDERED: *HR* Heparin 5,000 UNIT/ML VIAL IVP STA (14:59)
[2018-12-29] MEDS ORDERED: *HR* Midazolam HCl 2 MG/2 ML VIAL ONE (15:18)
[2018-12-29] MEDS ORDERED: Verapamil 5 MG/2 ML VIAL ONE (15:18)
[2018-12-29] MEDS ORDERED: 0.9 % Sodium Chloride 1,000 ML ONE (15:19)
[2018-12-29] MEDS ORDERED: Iopamidol 125 ML INFUS..BTL ONE (15:19)
[2018-12-29] MEDS ORDERED: *HR* Heparin 10,000 UNIT/10 ML VIAL ONE (15:19)
[2018-12-29] MEDS ORDERED: Nitroglycerin 1,000 MCG/10 ML VIAL IV ONE (15:19)
[2018-12-29] MEDS ORDERED: Heparin 1,000 UNITS/500 mL 500 ML ONE ×2 (15:19→15:41)
--- NOTE | 2018-12-29 15:19 | Cardiology History & Physical ---
Date of Encounter: 12/29/18 Time of Encounter: 15:00 Assessment and Plan (1) STEMI (ST elevation myocardial infarction) Current Visit: No Status: Acute Acute anterior STEMI on ECG Initial troponin 15.79. c/o chest pain 3/10. Of note, recently discharged on 12/27 s/p anterior STEMI s/p PCI with PTCA/DINORA in the proximal and mid LAD. Reports compliance with all medications including DAPT. TTE demonstrated LVEF of 40%. ASA 324 mg, heparin IV bolus, brilinta 180 mg, and NTG administered in the ED. Recommend LHC with possible PCI; A/R/B discussed, he is agreeable to proceed. Repeat limited echo, DAPT, statin, and BB. Cardiac rehab. Patient was discussed and reviewed with Dr. Minaya. Qualifiers: Involved coronary artery: LAD coronary artery Qualified Code(s): I21.02 - ST elevation (STEMI) myocardial infarction involving left anterior descending coronary artery (2) Essential hypertension Current Visit: Yes Status: Acute Currently controlled on home medications. Continue to monitor closely as inpatient. (3) S/P TAVR (transcatheter aortic valve replacement) Current Visit: Yes Status: Acute Hx of severe s/p TAVR at [facility] August 2018. (4) Ischemic cardiomyopathy Current Visit: Yes Status: Acute History of Present Illness Chief complaint: Chest pain HPI: Mr. Naylor is a 78 year old male with PMHx significant of HTN, renal colic, severe s/p recent TAVR (Ona July 2018), and recent STEMI and was discharged Wednesday afternoon (12/27) who presented to the ED with severe substernal chest pain. He reports symptoms started late last night and persisted throughout the night associated with nausea which prompted ED evaluation this afternoon. Upon arrival he c/o 5 out of 10 chest pain and was given NTG tabs, ASA 324 mg, and Heparin bolus, his pain then decreased to 3/10. Upon exam he is diaphoretic. Vital signs stable. Ischemic changes noted on ECG suggestive of STEMI; similar to ECG on 12/26. Initial troponin 15.79. Patient discussed and reviewed with Dr. Minaya; recommend emergent LHC. A/R/B discussed, he is agreeable to proceed. Recent CV testing: C 12/25/18: (STEMI) severe 1v CAD, successful PTCA/BMS in the proximal-mid LAD, previously jailed diagonal in the proximal mLAD. s/p TAVR. Otherwise, 50-60% dLCx and 1st OM; 30% pRCA TTE 12/25/18: LVEF 40%, LV segmental wall motion abnormality, mild to moderate cLVH, RV dilated with normal function, bioprosthetic AV not well visualized, mild MR, mild [place]. [place], apical anterior, apical septal, mid anterior septal, and basal anterior septal murguia were hypokinetic. ( [facility] 08/09/18 (Ona): s/p PTCA/DINORA to mRCA and PTCA to diagonal 2; otherwise moderate non-obstructive CAD. Past Med Surg Social Fam HX - Past Medical History Attestation: Yes The following information was validated with the patient. Source: patient, old records reviewed Medical history: arthritis, CHF, coronary artery disease, diabetes, GERD, GI bleed, hyperlipidemia, hypertension, kidney stones, migraine, myocardial infarction, TIA, valvular heart disease Psychiatric history: anxiety, depression - Past Surgical History Surgical History: angioplasty/stent Additional surgical history: throat surgery Stent placement, Aortic Valve replacement. - Social History Smoking Status: Former smoker Smokeless Tobacco Status: No Alcohol use: none Drug use: none - Family History Sister Adopted: No Family Member Ethnicity: Non- Living Status: Still Living Hx Family Cardiac Disorders: Yes Hx Family Respiratory Disorders: No Hx Family Cancer: No Hx Family GI Disorders: Yes Hx Family Endocrine Disorder: No Hx Family Neuromuscular Disorders: No Hx Family Neurologic Disorders: No Hx Family HEENT Disorders: Yes (glasses) Hx Family Autoimmune Disorders: No Mother Cause of : CAD Hx Family Cardiac Disorders: Yes (CAD, HTN) Hx Family Neurologic Disorders: Yes (CVA) Father Living Status: Cause of : CAD Hx Family Cardiac Disorders: Yes (CAD, HTN) Hx Family Neurologic Disorders: Yes (CVA) Medications and Allergies Aspirin [Lo-Dose Aspirin EC] 81 mg PO QAM 07/25/18 [History] Glimepiride [Amaryl] 4 mg PO QAM 07/25/18 [History] Levomefolate/B6/B12/Algal Oil [Metanx Capsule] 1 cap PO BID 07/25/18 [History] Metformin HCl 1,000 mg PO BID 07/25/18 [History] Potassium Chloride [Klor-Con 10] 10 meq PO DAILY 10/27/18 [History] Lisinopril [Zestril] 2.5 mg PO DAILY 30 Days #30 tablet 12/27/18 [Rx] Metoprolol XL (24 HR) Succ [Toprol Xl] 50 mg PO DAILY 30 Days #30 tab.er.24h 12/27/18 [Rx] Ranolazine [Ranexa] 1,000 mg PO BID 30 Days #60 tab.er.12h 12/27/18 [Rx] Rosuvastatin [Crestor] 40 mg PO HS 30 Days #30 tablet 12/27/18 [Rx] Ticagrelor [Brilinta] 90 mg PO BID 30 Days #60 tablet 12/27/18 [Rx] Allergy/AdvReac Type Severity Reaction Status Date / Time bee venom protein (honey bee) Allergy Severe Anaphylaxis Verified 12/25/18 17:23 All Systems Review: The remainder of the systems were reviewed and are negative - Constitutional Constitutional: fatigue - Cardiovascular Cardiovascular: as per HPI, chest pain at rest, diaphoresis, dyspnea at rest - Gastrointestinal Gastrointestinal: nausea Physical Examination Vital Signs, Last 4 Hours Temp Pulse Resp BP Pulse Ox 12/29/18 14:53 77 18 125/67 93 12/29/18 13:53 100 12/29/18 13:35 98.6 F 81 19 130/74 100 General: Conversant, Other (appears acutely ill; diaphoretic) HEENT: Atraumatic, Normocephaly Cardiac: Reg Rate and Rhythm, Normal S1 and S2 Lungs: Normal Breath Sounds (anterior only) Neuro: Alert and responsive Abdomen: Soft Skin: No rashes noted on visualized skin Musculoskeletal: No Chest Wall Tenderness Extremities: No Edema, Normal Pulses Other: mild bruising right radial cath site Results 12/29/18 13:47 12/29/18 13:47 Lab Results 12/29/18 12/29/18 12/29/18 13:47 13:47 13:47 WBC 12.4 H Hgb 10.7 L D Hct 33.2 L Plt Count 322 INR 1.3 APTT 33.6 Sodium 136 Potassium 4.5 Chloride 98 Carbon Dioxide 22 L BUN 37 H Creatinine 1.38 H Glucose 340 H Calcium 9.4 Total Bilirubin 2.3 H AST 38 ALT 30 Alkaline Phosphatase 80 Troponin I 15.79 H* - Imaging and Cardiology Echo: pending, report reviewed Cardiac cath: pending, report reviewed - EKG Interpretation EKG results cardiology: personally reviewed HAS-BLED Score - Score Abnormal liver function: Cirrhosis or Bilirubin >2x normal or AST/ALT/AP>3x normal Elderly: Age>65 years Medication usage predisposing to bleeding: Antiplatelet agents, NSAIDs, Antic oagulants Score: 3
--- NOTE | 2018-12-29 16:14 | Pre-Sedation Evaluation ---
Pre-sedation evaluation - Pre-sedation checklist Date of procedure: 12/29/18 Procedure: [facility] Recent Vitals: Last Vital Signs Temp 98.6 F 12/29/18 13:35 Pulse 74 12/29/18 15:19 Resp 18 12/29/18 15:19 BP 133/82 12/29/18 15:19 Pulse Ox 100 12/29/18 15:19 H&P (including ROS) documented in medical record: Yes Dietary Status: NPO 6 hours prior to procedure Airway Assessment: Patient can open mouth completely, TMJ function normal Possible difficult airway: No ASA Classification *see protocol: CLASS II-Mild systemic disease Plan of Care: Pt appropriate candidate for procedure/moderate/conscious sedation Cardiac Registry (Cardio Only) - Functional Capacity Functional Capacity: >=4 METS with symptoms - Clincal Frailty Scale Clinical Frailty Scale: Managing Well
[2018-12-29] MEDS ORDERED: Acetaminophen 325 MG TABLET PO PRN (16:19)
--- NOTE | 2018-12-29 16:19 | Event Note ---
Date of Encounter: 12/29/18 Time of Encounter: 16:14 - Cardiology Event Note Uregent cath for acute presentation with dyspnea and chest pain. LV-not injected. TAVR valve present RCA: mid eccentric 55% LCA: LAD stent patent Recommend: CHF therapy-diuresis chf meds evaluate for sleep apnea.
--- NOTE | 2018-12-29 18:11 | Invasive Diagnostic Lab Proc ---
Name: August Naylor Date of Study: 12/29/2018 Date: 1940 Ht: 68.1in Medical Record#: [id number] Age: 78 Wt: 216.05lb Gender: Male BSA: 2.11 Order #: [id number] BMI: 32.74 Physicians Procedure Physician: Ravi Minaya MD Referring MD: Referring MD: Staff Name Position Time In Yessi Rodriguez RN Monitor 03:47 PM Steve Simmons RN Technologist Development 03:47 PM Janeth Ryan RT (R) Scrub 03:47 PM Silva Sharp RT (R) Scrub 03:47 PM Procedures Performed Procedure CORONARY ARTERY ANGIO S&I Pre-Procedure Checklist Pt not NPO for procedure and MD aware. Plan of Care Patient will tolerate the procedure without complications. Adequate level of comfort will be maintained. Hemodynamics will remain stable Patient will recover from procedure without complications. Respiratory function will be maintained. Cardiac rhythm will remain stable. Patient temperature will be maintained. Patient and/or family have verbalized understanding of the procedure. Patient Education Intravenous Access Time IV Size Location DC'd Fluid/Drip Rate Units RN 03:54 PM 20g 1 14" Patent On Arrival Rt Antecubital 03:54 PM 20g 1 1/4" Patent On Arrival Lt Antecubital Allergies Penicillin Bee Pollen bee venom protein (honey bee) PCN No Known Allergies Vital Signs Time BP (mmHg) HR (bpm) O2 Sat. RR (bpm) LOC 03:56 PM / % 5 = Fully awake and oriented or at pre-proc level 03:48 PM 130 / 85 78 100 % 03:54 PM 148 / 84 75 99 % 28 03:58 PM 132 / 65 76 100 % 39 04:03 PM 135 / 77 73 96 % 35 04:08 PM 147 / 78 74 98 % 30 04:30 PM 125 / 74 74 100 % 22 4 = Oriented but drowsy 04:45 PM 129 / 71 74 96 % 24 4 = Oriented but drowsy 05:00 PM 128 / 75 75 100 % 22 4 = Oriented but drowsy 05:15 PM 129 / 78 74 97 % 20 4 = Oriented but drowsy 05:30 PM 129 / 84 73 100 % 24 4 = Oriented but drowsy Procedural Medications Time Medication Dose Units Method Given By 03:47 PM Oxygen 2 L/min nasal cannula Steve Simmons RN 03:47 PM Versed 2 mg Intravenous Steve Simmons RN 03:53 PM Lidocaine 2% 10 ml Subcutaneous Ravi Minaya MD [place] Score Preprocedure Postprocedure Activity 2- Moves 4 extremities sustained head lift Activity 2- Moves 4 extremities sustained head lift Circulation 2- SBP +/= 20 points of pre-anesthetic level Circulation 2- SBP +/= 20 points of pre-anesthetic level Consciousness 2- Awake and alert oriented x 3 Consciousness 1- Responds to verbal stimuli drowsy O2 Saturation 2- Able to maintain O2 satruation of 92% on room air O2 Saturation 2- Able to maintain O2 satruation of 92% on room air Respiratory 2- Able to deep breathe and cough well Respiratory 2- Able to deep breathe and cough well Total Score 10 Total Score 9 Contrast Agent: Isovue Diagnostic Contrast: 75 ml Total Contrast: 75 ml Fluoro Dose: 17 mGy Activated Clotting Time Time Seconds to Clot 04:13 PM 174 Procedure Log Time Note Enter By 03:45 PM 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 Informed consent was obtained. [email or web address] 03:47 PM Procedure start 15:47 [email or web address] 03:47 PM CathStat 03:47 PM Vitals capture started with the following parameters, Patient=Adult, Interval=5 min, Initial Rrtftkku=903 mmHg, Deflation Rate=3 mmHg, Cuff placed on Right Arm 03:47 PM Time: 15:47 Oxygen on at 2 L/min per nasal cannula by Steve Simmons RN [facility] 03:47 PM Time: 15:47 Versed 2 mg Intravenous Given by Steve Simmons RN oumm 03:48 PM HR=78 bpm, TUKA=448/85 mmhg, OwC3=557.0 % 03:52 PM Recorded ECG: HR=77 Condition=Condition 1 03:52 PM Pressure channel 2 zeroed. 03:52 PM Hair removed from procedure site in procedure lab using clippers. Bilateral groin prepped with Chloraprep by Janeth Ryan (R), then patient was draped. Skin intact. [email or web address] 03:52 PM Time out was performed according to hospital policy. Conscious sedation and anesthesia was achieved (see medication log with in this report above) oummers 03:53 PM Time: 15:53 10 ml Lidocaine 2% to right groin Subcutaneous Given by Ravi Minaya MD oumm 03:54 PM Access obtained by percutaneous puncture. 6Fr 10cm Terumo [place] sheath placed in right Femoral artery. [id number] oummers 03:54 PM HR=75 bpm, DYCM=375/84 mmhg, SpO2=99.0 %, Resp=28 B/min 03:55 PM 6Fr FR 4 catheter inserted over the wire [facility] oumm 03:55 PM RCA angiography performed in multiple views. [email or web address] 03:56 PM Recorded Pressure: Ao, HR=73, Condition=Condition 1 (Aorta) Ao 118/57/81 03:56 PM Catheter removed [email or web address] 03:56 PM Time: 15:56 Patient comfortable and pain free: [email or web address] 03:56 PM Time: 15:56 Patient comfortable and pain free: Yes [email or web address] 03:56 PM Time: 15:56LOC: 5 = Fully awake and oriented or at pre-proc level [email or web address] 03:57 PM 6Fr JL3.5 [place] Bright-Tip guide catheter was used to cannulate the PCI vessel successfully. reused? No tsoummers 03:58 PM LCA angiography performed in multiple views. tsmmers 03:58 PM Recorded Pressure: Ao, HR=77, Condition=Condition 1 (Aorta) Ao 119/56/80 03:58 PM HR=76 bpm, PXEO=218/65 mmhg, WuK7=462.0 %, Resp=39 B/min 04:01 PM Guide catheter removed intact. [email or web address] 04:02 PM 6Fr XB 3.5 [place] Bright-Tip guide catheter was used to cannulate the PCI vessel successfully. reused? No mm 04:03 PM HR=73 bpm, ZUOU=180/77 mmhg, SpO2=96.0 %, Resp=35 B/min 04:03 PM LCA angiography performed in multiple views. 04:03 PM Guide catheter removed intact. 04:04 PM Bolus angiogram of right Femoral complete: hand injection 04:06 PM Procedure completed at 16:06 12/29/2018[facility] 04:06 PM Did you address JEANNE flow and Dominance? YesCoronary Dominance: right mm 04:07 PM Sign out completed: Radiation Dose 198.35 mGy, 16.9 Gy/cm2 Fluoro Time: 2.1 Isovue 370 - 200ml contrast 75 ml given by Ravi Minaya MD. Complications: None. 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 Sedation minutes 20. Cardiac Rehab Consult needed: No. Confirmed administered medications: Yes mm 04:07 PM Isovue 370 - 200ml,1 Bottle(s) used. mm 04:07 PM Arterial sheath pulled, Perclose closure device used and was Successful S/N. [id number] [facility] 04:08 PM Estimated Blood Loss: minimal mm 04:08 PM HR=74 bpm, UNIO=801/78 mmhg, SpO2=98.0 %, Resp=30 B/min 04:08 PM Post ECG NSR tsoumm 04:08 PM Post Blood Pressure 147/[facility] 04:09 PM Information taught Cardiac Cath and Perclose [facility] 04:09 PM Education needs Procedure, Plan of Care, and Responsibilities of Patient in Care mm 04:09 PM Learning barriers :sedated [facility] 04:09 PM Education Methods Verbal [facility] 04:09 PM Education evaluation Able to repeat information [facility] 04:09 PM Site status No bleeding/ No Hematoma - Rt Groin as reported by Silva Sharp RT (R) at 16:09 [email or web address] 04:09 PM Opsite applied [facility] 04:09 PM Plavix, Effient or Brilinta given 180mg 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 [email or web address] 04:13 PM Lesion found in Proximal RCA. Pre Stenosis: 20 Pre JEANNE Flow: tsoummers 04:13 PM Lesion found in Mid RCA. Pre Stenosis: 55 Pre JEANNE Flow: tsoummers 04:13 PM Lesion found in Distal RCA. Pre Stenosis: 20 Pre JEANNE Flow: tsoummers 04:14 PM Lesion found in Proximal LAD. Pre Stenosis: 10 Pre JEANNE Flow: tsoummers 04:14 PM Lesion found in Mid LAD. Pre Stenosis: 30 Pre JEANNE Flow: tsoummers 04:14 PM Lesion found in Distal LAD. Pre Stenosis: 30 Pre JEANNE Flow: tsoummers 04:14 PM Lesion found in Proximal Circumflex. Pre Stenosis: 30 Pre JEANNE Flow: tsoummers 04:14 PM Lesion found in Mid Circumflex. Pre Stenosis: 30 Pre JEANNE Flow: tsoummers 05:30 PM report called to ICU 2. Pt taken to ICU 2 cody Complications Complication None Hemodynamics Pressures Site Systolic/A Wave Diastolic/V Wave Mean AO 118 57 81 AO 119 56 80 Post Procedure Information Blood Pressure: 147/78 mmHg Rhythm: NSR Post procedural instructions were given Closure Device Time Device Success/Fail 12/29/2018 4:07:00 PM Perclose ProGlide Successful Site Checks Time Location Status Staff Sheath In? Note 04:09 PM Rt Groin No bleeding/ No Hematoma Silva Sharp RT (R) 04:45 PM Rt Groin No bleeding/ No Hematoma Yessi Rodriguez RN 04:30 PM Rt Groin No bleeding/ No Hematoma Yessi Rodriguez RN 05:00 PM Rt Groin No bleeding/ No Hematoma Yessi Rodriguez RN 05:15 PM Rt Groin No bleeding/ No Hematoma Yessi Rodriguez RN 05:30 PM Rt Groin No bleeding/ No Hematoma Yessi Rodirguez RN Pulses Updated by Yessi Rodriguez RN on 12/29/2018 6:02:40 PM electronically signed on 12/29/2018 6:03:02 PM with status of Final
[2018-12-29] MEDS: Furosemide 40 MG in 0.9 % Sodium Chloride 50 ML IV SCH (18:15)
[2018-12-29] MEDS ORDERED: *HR* Dextrose 50 % in Water (Syg) 50 ML SYRINGE IVP PRN (18:30)
[2018-12-29] MEDS ORDERED: Dextrose Gel 15 GM/37.5 ML TUBE PO PRN ×2 (18:30)
[2018-12-29] MEDS ORDERED: D5% in Water 1,000 ML IVC PRN (18:30)
[2018-12-29] MEDS: Insulin LISPRO 300 UNITS/3 ML VIAL SQ SCH ×2 (20:00→20:44)
[2018-12-29] MEDS ORDERED: Perflutren Lipid Microsphere 1.3 ML in 0.9 % Sodium Chloride 8.7 ML IVP ONE (22:51)
[2018-12-29] MEDS ORDERED: Perflutren Lipid Microsphere 2 ML VIAL ONE (22:54)
[2018-12-30 05:02] LABS: Basophils % 0.2 %; Eosinophils % 0.1 %; Hematocrit 31.7 % (37.5-50.1); Hemoglobin 10.5 g/dL (12.9-16.9); Immature Granulocytes % 0.4 % (0-4); Lymphocytes # 0.2 K/mcL (0.6-4.6); Mean Corpuscular HGB Conc 33.1 g/dL (31.6-35.5); Mean Corpuscular Hemoglobin 28.2 pg (28.0-33.3); Mean Corpuscular Volume 85.2 fL (83.0-100.0); Mean Platelet Volume 10.5 fL (9.4-12.4); Monocytes # 0.5 K/mcL (0.0-1.3); Monocytes % 4.1 %; Neutrophils # 11.2 K/mcL (1.6-8.9); Platelet Count 346 K/mcL (140-400); Red Blood Count 3.72 M/mcL (4.19-5.50); Red Cell Distribution Width 16.8 % (11.5-14.5); Segmented Neutrophils % 93.2 %
[2018-12-30 05:22] LABS: BUN/Creatinine Ratio 29 (6-26); Blood Urea Nitrogen 38 mg/dL (8-23); Calcium 8.8 mg/dL (8.6-10.3); Carbon Dioxide 20 mEq/L (23-29); Chloride 102 mEq/L (98-107); Glucose 283 mg/dL (70-105); Osmolality,Calculated 299 (280-300); Potassium 4.1 mEq/L (3.5-5.1); Sodium 135 mEq/L (136-145); eGFR For African Americans > 60 (> 60); eGFR For Non-African Americans 53 (> 60)
[2018-12-30] MEDS ORDERED: Aspirin Enteric Coated 81 MG Tablet PO SCH (09:00)
--- NOTE | 2018-12-30 09:53 | Cardiology Progress Note ---
Date of Encounter: 12/30/18 Time of Encounter: 08:30 Assessment and Plan (1) Ischemic cardiomyopathy Current Visit: Yes Status: Acute Presented as NSTEMI and acute CHF. TTE prior admission, LVEF 40%. Repeat limited TTE this admission shows LVEF 30-35%. Still with volume overload upon exam. Reports significant nausea with vomiting this AM, zofran ordered. GI cocktail. Renal function stable, continue IV diuresis. Strict I&Os, daily weights, Na/f luid restricted diet. Continue coreg, BB. Repeat CXR in AM. (2) NSTEMI (non-ST elevation myocardial infarction) Current Visit: Yes Status: Acute After review with Dr. Minaya, likely NSTEMI in the setting of acute CHF. [facility] completed, patent stents from prior procedure earlier this week. Medical therapy recommended. Initial troponin 15.79. c/o chest pain 06/19. ECG unchanged from previous. Of note, recently discharged on 12/27 s/p anterior STEMI s/p PCI with PTCA/DINORA in the proximal and mid LAD. Reports compliance with all medications including DAPT. Repeat TTE this admission: LVEF 30-35%, segmental LV systolic dysfunction, mild cLVH. DAPT with asa and brilinta, statin, and BB. Cardiac rehab. No issues with right groin cath site. (3) Essential hypertension Current Visit: Yes Status: Acute Currently controlled on home medications. Continue to monitor closely as inpatient. (4) S/P TAVR (transcatheter aortic valve replacement) Current Visit: Yes Status: Acute Hx of severe s/p TAVR at [facility] August 2018. Discussion w patient/family: The assessment and plan as outlined above was discussed with the patient and/or family members who expressed understanding and agreement. All questions were answered. Thank you for involving us in the care of your patient. Please call with any questions. The patient will be discussed and reviewed with Dr. Cunningham; changes to be made accordingly. Subjective Principal diagnosis: NSTEMI, acute CHF Interval history: Seen and examined. No chest pain overnight. Reports significant nausea with vomiting this AM. Reports persistent nausea since d/c earlier this week. No issues with right groin cath site. Objective Vital Signs, Last 4 Hours Temp Pulse Resp BP Pulse Ox 12/30/18 07:24 98.6 F 84 18 127/69 100 General: Conversant, No Apparent Distress HEENT: Atraumatic, Normocephaly Cardiac: Reg Rate and Rhythm, Normal S1 and S2 Lungs: Other (Bibasilar crackles) Neuro: Alert and responsive Abdomen: Soft Skin: No rashes noted on visualized skin Musculoskeletal: No Chest Wall Tenderness Extremities: No Edema, Normal Pulses Results 12/30/18 04:33 12/30/18 04:33 Lab Results 12/29/18 12/29/18 12/29/18 13:47 13:47 13:47 WBC 12.4 H Hgb 10.7 L D Hct 33.2 L Plt Count 322 INR 1.3 APTT 33.6 Sodium 136 Potassium 4.5 Chloride 98 Carbon Dioxide 22 L BUN 37 H Creatinine 1.38 H Glucose 340 H Calcium 9.4 Total Bilirubin 2.3 H AST 38 ALT 30 Alkaline Phosphatase 80 Troponin I 15.79 H* B-Natriuretic Peptide 12/29/18 12/30/18 12/30/18 13:47 04:33 04:33 WBC 12.0 H Hgb 10.5 L Hct 31.7 L Plt Count 346 INR APTT Sodium 135 L Potassium 4.1 Chloride 102 Carbon Dioxide 20 L BUN 38 H Creatinine 1.32 H Glucose 283 H Calcium 8.8 Total Bilirubin AST ALT Alkaline Phosphatase Troponin I B-Natriuretic Peptide 1232 H Active Medications Acetaminophen (Tylenol) 650 mg PO Q6HR PRN PRN Reason: Mild Pain Stop: 06/30/19 16:20 Aspirin (Aspirin) 81 mg PO DAILY [facility] Stop: 07/01/19 09:01 Carvedilol (Coreg) 6.25 mg PO BIDWM [facility]; Protocol Stop: 06/30/19 17:01 Last Admin: 12/29/18 18:15 Dose: 6.25 mg Documented by: Dextrose/Water (Dextrose 50% (Syg)) 25 ml IVP AD PRN PRN Reason: Hypoglycemia Stop: 06/30/19 18:31 Furosemide (Lasix) 40 mg IVP BIDDIURETIC [facility] Stop: 07/01/19 08:44 Glucagon (Glucagen) 1 mg IM ONCE PRN PRN Reason: Hypoglycemia Stop: 06/30/19 18:31 Glucose (Gluctose) 15 gm PO ONCE PRN PRN Reason: Hypoglycemia Stop: 06/30/19 18:31 Glucose (Gluctose) 30 gm PO ONCE PRN PRN Reason: Hypoglycemia Stop: 06/30/19 18:31 Dextrose (Dextrose 5%) 1,000 mls @ 100 mls/hr IVC .Q10H PRN PRN Reason: HYPOGLYCEMIA Stop: 06/30/19 18:31 Insulin Human Lispro (Humalog) 0 units SQ TIDAC [facility]; Protocol Stop: 06/30/19 18:46 Last Admin: 12/29/18 20:00 Dose: Not Given Documented by: Insulin Human Lispro (Humalog) 0 units SQ HS [facility]; Protocol Stop: 06/30/19 21:01 Last Admin: 12/29/18 20:44 Dose: 6 units Documented by: Lisinopril (Zestril) 5 mg PO DAILY [facility]; Protocol Stop: 07/01/19 09:01 Multi-Ingredient Liquid (Gi Cocktail) 40 ml PO ONCE ONE Stop: 12/30/18 09:59 Ondansetron HCl (Zofran) 4 mg IVP Q6HR PRN; Protocol PRN Reason: Nausea Stop: 07/01/19 09:58 Rosuvastatin Calcium (Crestor) 40 mg PO HS [facility] Stop: 06/30/19 21:01 Last Admin: 12/29/18 20:44 Dose: 40 mg Documented by: Ticagrelor (Brilinta) 90 mg PO BID [facility] Stop: 07/01/19 09:01 - Imaging and Cardiology Echo: report reviewed Cardiac cath: report reviewed Other Results: 12 hour tele: avg HR=84 SR. - EKG Interpretation EKG results cardiology: personally reviewed Consult Discharge Plan - Plan Referrals: Lavell Crawford Jr, MD [Primary Care Provider] -
[2018-12-30] MEDS ORDERED: Ondansetron 4 MG/2 ML VIAL IVP PRN (09:57)
[2018-12-30] MEDS ORDERED: GI Cocktail 40 ML EACH PO ONE (09:58)
[2018-12-30] MEDS: Furosemide 40 MG/4 ML VIAL IVP SCH ×2 (10:08→18:01)
[2018-12-30] MEDS: Insulin LISPRO 300 UNITS/3 ML VIAL SQ SCH ×4 (10:08→21:13)
[2018-12-30] MEDS: *HR* Ticagrelor 90 MG TABLET PO SCH ×2 (10:09→21:13)
[2018-12-30] MEDS: Aspirin 81 MG TAB.CHEW PO SCH (10:09)
[2018-12-30] MEDS: Furosemide 40 MG in 0.9 % Sodium Chloride 50 ML IV SCH (11:53)
[2018-12-30] MEDS: *HR* Heparin 5,000 UNIT/ML VIAL SQ SCH ×2 (17:58→18:01)
[2018-12-31] MEDS: *HR* Heparin 5,000 UNIT/ML VIAL SQ SCH ×2 (06:31→17:15)
--- NOTE | 2018-12-31 06:38 | Electrocardiograph Report ---
[employer] [employer] Test Date: 2018-12-29 Pat Name: August Naylor Department: EXAM25 Room: 2A63 Gender: M Installation Manager: : 1940 Requested By: Breann Guillen Order Number: [id number] Reading MD: Luigi Marroquin Measurements Intervals [place] Rate: 83 P: 51 AK: 219 QRS: 113 QRSD: 164 T: -64 QT: 440 QTc: 518 Interpretive Statements Sinus rhythm Non specific ST-T Changes in inferior leads. Electronically Signed On 12-31-2018 6:36:35 EDT by Luigi Marroquin
[2018-12-31] MEDS: Aspirin 81 MG TAB.CHEW PO SCH (07:44)
[2018-12-31] MEDS: Furosemide 40 MG/4 ML VIAL IVP SCH (07:44)
[2018-12-31] MEDS: *HR* Ticagrelor 90 MG TABLET PO SCH ×2 (07:44→21:04)
[2018-12-31] MEDS: Insulin LISPRO 300 UNITS/3 ML VIAL SQ SCH ×4 (07:45→21:05)
--- NOTE | 2018-12-31 10:15 | Cardiology Progress Note ---
Date of Encounter: 12/31/18 Time of Encounter: 10:13 Assessment and Plan (1) Ischemic cardiomyopathy Current Visit: Yes Status: Acute Presented as NSTEMI and acute CHF. TTE prior admission, LVEF 40%. Repeat limited TTE this admission shows LVEF 30-35%. CXR this AM Interval resolution of the mild congestive failure. No acute pulmonary process. Lungs clear to ausculatation. Received IV Lasix this AM. Cumulative I/O -2071mL. Renal function not checked today--will order. Plan to transition to PO Lasix tomorrow AM. Strict I&Os, daily weights, Na/fluid restricted diet. Continue coreg, BB. Cardiology signing off. Reconsult PRN. Will coordinate outpt follow-up in 1 week. (2) NSTEMI (non-ST elevation myocardial infarction) Current Visit: Yes Status: Acute Likely NSTEMI in the setting of acute CHF. [facility] completed, patent stents from prior procedure earlier this week. Medical therapy recommended. Initial troponin 15.79. c/o chest pain 06/19. ECG unchanged from previous. Of note, recently discharged on 12/27 s/p anterior STEMI s/p PCI with PTCA/DINORA in the proximal and mid LAD. Reports compliance with all medications including DAPT. Repeat TTE this admission: LVEF 30-35%, segmental LV systolic dysfunction, mild cLVH. DAPT with asa and brilinta, statin, and BB. Cardiac rehab. No issues with right groin cath site. (3) S/P TAVR (transcatheter aortic valve replacement) Current Visit: Yes Status: Acute Hx of severe s/p TAVR at [facility] August 2018. (4) Essential hypertension Current Visit: Yes Status: Acute Currently controlled on home medications. Continue to monitor closely as inpatient. Discussion w patient/family: The assessment and plan as outlined above was discussed with the patient and/or family members who expressed understanding and agreement. All questions were answered. Thank you for involving us in the care of your patient. Please call with any questions. I will discuss all the above with Dr. Maegan Cunningham and make changes as necessary. Subjective Principal diagnosis: NSTEMI, acute CHF Interval history: Reports dyspnea improved. Denies chest pain. Objective Vital Signs, Last 4 Hours Temp Pulse Resp BP Pulse Ox 12/31/18 06:40 98.0 F 76 16 105/59 99 Vital Signs Temp Pulse Resp BP Pulse Ox 12/31/18 06:40 98.0 F 76 16 105/59 99 12/31/18 03:37 97.4 F L 74 16 107/63 100 12/30/18 23:59 98.2 F 77 17 111/64 97 12/30/18 20:11 97.6 F 78 16 112/63 100 12/30/18 16:39 97.5 F L 75 17 114/67 100 12/30/18 11:26 97.6 F 76 17 106/58 99 Intake and Output 12/30/18 12/31/18 12/31/18 23:59 07:59 15:59 Intake Total 0 / 54 Output Total 800 / 1425 250 / 250 Balance -800 / -1371 -250 / -250 Intake: Oral 0 / 0 Output: Urine 800 / 1425 250 / 250 Other: # Voids 1 Blood Glucose* 285 165 General: Conversant, No Apparent Distress HEENT: Atraumatic, Normocephaly, Mucus Membranes Moist Neck: No JVD, Normal carotid pulses Cardiac: Reg Rate and Rhythm, Normal S1 and S2, No Murmur Lungs: Normal Breath Sounds, No Wheeze, Rales, Rhonchi Neuro: Alert and responsive, No focal deficits noted Abdomen: Soft, Non-Tender Skin: No rashes noted on visualized skin Musculoskeletal: No Chest Wall Tenderness Extremities: No Clubbing, No Cyanosis, No Edema, Normal Pulses Results 12/30/18 04:33 12/30/18 04:33 Impressions Chest X-Ray 12/31/18 08:07 IMPRESSION: Interval resolution of the mild congestive failure. No acute pulmonary process. D/ / 12/31/2018 08:44:20 Lorelei Bermeo MD / antonio Interpreting Provider: Lorelei Bermeo MD Active Medications Acetaminophen (Tylenol) 650 mg PO Q6HR PRN PRN Reason: Mild Pain Stop: 06/30/19 16:20 Aspirin (Aspirin) 81 mg PO DAILY [facility] Stop: 07/01/19 09:01 Last Admin: 12/31/18 07:44 Dose: 81 mg Documented by: Carvedilol (Coreg) 6.25 mg PO BIDWM [facility]; Protocol Stop: 06/30/19 17:01 Last Admin: 12/31/18 07:44 Dose: 6.25 mg Documented by: Dextrose/Water (Dextrose 50% (Syg)) 25 ml IVP AD PRN PRN Reason: Hypoglycemia Stop: 06/30/19 18:31 Furosemide (Lasix) 40 mg IVP BIDDIURETIC [facility] Stop: 07/01/19 08:44 Last Admin: 12/31/18 07:44 Dose: 40 mg Documented by: Glucagon (Glucagen) 1 mg IM ONCE PRN PRN Reason: Hypoglycemia Stop: 06/30/19 18:31 Glucose (Gluctose) 15 gm PO ONCE PRN PRN Reason: Hypoglycemia Stop: 06/30/19 18:31 Glucose (Gluctose) 30 gm PO ONCE PRN PRN Reason: Hypoglycemia Stop: 06/30/19 18:31 Heparin Sodium (Porcine) (Heparin) 5,000 unit SQ Q12HCO [facility]; Protocol Stop: 07/01/19 15:01 Last Admin: 12/31/18 06:31 Dose: 5,000 unit Documented by: Dextrose (Dextrose 5%) 1,000 mls @ 100 mls/hr IVC .Q10H PRN PRN Reason: HYPOGLYCEMIA Stop: 06/30/19 18:31 Insulin Human Lispro (Humalog) 0 units SQ TIDAC [facility]; Protocol Stop: 06/30/19 18:46 Last Admin: 12/31/18 07:45 Dose: 4 units Documented by: Insulin Human Lispro (Humalog) 0 units SQ HS [facility]; Protocol Stop: 06/30/19 21:01 Last Admin: 12/30/18 21:13 Dose: 5 units Documented by: Lisinopril (Zestril) 5 mg PO DAILY [facility]; Protocol Stop: 07/01/19 09:01 Last Admin: 12/30/18 10:09 Dose: 5 mg Documented by: Ondansetron HCl (Zofran) 4 mg IVP Q6HR PRN; Protocol PRN Reason: Nausea Stop: 07/01/19 09:58 Rosuvastatin Calcium (Crestor) 40 mg PO HS [facility] Stop: 06/30/19 21:01 Last Admin: 12/30/18 21:13 Dose: 40 mg Documented by: Ticagrelor (Brilinta) 90 mg PO BID [facility] Stop: 07/01/19 09:01 Last Admin: 12/31/18 07:44 Dose: 90 mg Documented by: - Imaging and Cardiology Echo: report reviewed Cardiac cath: report reviewed - EKG Interpretation EKG results cardiology: other (12 hr tele AVG HR 72, SR) Consult Discharge Plan - Plan Referrals: Lavell Crawford Jr, MD [Primary Care Provider] -
[2018-12-31 10:59] LABS: Calcium 9.1 mg/dL (8.6-10.3); Potassium 3.2 mEq/L (3.5-5.1)
[2019-01-01] MEDS: *HR* Heparin 5,000 UNIT/ML VIAL SQ SCH ×2 (06:13→17:45)
[2019-01-01 07:43] LABS: Basophils % 0.1 %; Eosinophils # 0.2 K/mcL (0.0-0.6); Eosinophils % 3.1 %; Hematocrit 34.2 % (37.5-50.1); Hemoglobin 11.1 g/dL (12.9-16.9); Immature Granulocytes % 0.7 % (0-4); Lymphocytes # 0.2 K/mcL (0.6-4.6); Lymphocytes % 3.1 %; Mean Corpuscular HGB Conc 32.5 g/dL (31.6-35.5); Mean Corpuscular Hemoglobin 28.2 pg (28.0-33.3); Mean Platelet Volume 10.3 fL (9.4-12.4); Monocytes # 0.4 K/mcL (0.0-1.3); Monocytes % 5.2 %; Neutrophils # 6.5 K/mcL (1.6-8.9); Nucleated Red Blood Cells 0.3 /100 WBC (0); Platelet Count 347 K/mcL (140-400); Red Blood Count 3.93 M/mcL (4.19-5.50); Red Cell Distribution Width 16.8 % (11.5-14.5); Segmented Neutrophils % 87.8 %; White Blood Count 7.4 K/mcL (4.3-11.1)
[2019-01-01 08:02] LABS: Potassium 3.4 mEq/L (3.5-5.1)
[2019-01-01] MEDS: Insulin LISPRO 300 UNITS/3 ML VIAL SQ SCH ×4 (08:55→21:52)
[2019-01-01] MEDS: Aspirin 81 MG TAB.CHEW PO SCH (08:55)
[2019-01-01] MEDS: *HR* Ticagrelor 90 MG TABLET PO SCH ×2 (08:55→21:53)
[2019-01-01] MEDS ORDERED: Furosemide 40 MG TABLET PO SCH (09:00)
--- NOTE | 2019-01-01 12:50 | Cardiology Progress Note ---
Date of Encounter: 01/01/19 Time of Encounter: 11:30 Assessment and Plan (1) Ischemic cardiomyopathy Current Visit: Yes Status: Acute Presented as NSTEMI and acute CHF. TTE prior admission, LVEF 40%. Repeat limited TTE this admission shows LVEF 30-35%. CXR this AM Interval resolution of the mild congestive failure. No acute pulmonary process. Lungs clear to ausculatation. Received IV Lasix this AM. Cumulative I/O -3371mL. Hypotensive this AM; bump in SCr, will given 250 mL bolus now. Plan to transition to PO Lasix tomorrow AM. Strict I&Os, daily weights, Na/fluid restricted diet. Continue coreg. Will decrease lisinopril. (2) NSTEMI (non-ST elevation myocardial infarction) Current Visit: Yes Status: Acute Likely NSTEMI in the setting of acute CHF. [facility] completed, patent stents from prior procedure earlier this week. Medical therapy recommended. Initial troponin 15.79. c/o chest pain 06/19. ECG unchanged from previous. Of note, recently discharged on 12/27 s/p anterior STEMI s/p PCI with PTCA/DINORA in the proximal and mid LAD. Reports compliance with all medications including DAPT. Repeat TTE this admission: LVEF 30-35%, segmental LV systolic dysfunction, mild cLVH. DAPT with asa and brilinta, statin, and BB. Cardiac rehab. No issues with right groin cath site. (3) Essential hypertension Current Visit: Yes Status: Acute Currently controlled on home medications. Continue to monitor closely as inpatient. (4) S/P TAVR (transcatheter aortic valve replacement) Current Visit: Yes Status: Acute Hx of severe s/p TAVR at [facility] August 2018. Discussion w patient/family: The assessment and plan as outlined above was discussed with the patient and/or family members who expressed understanding and agreement. All questions were answered. Thank you for involving us in the care of your patient. Please call with any questions. The patient will be discussed and reviewed with Dr. Cunningham; changes to be made accordingly. Subjective Principal diagnosis: NSTEMI, acute CHF Interval history: Seen and examined. No chest pain overnight. Nausea improved. Objective Vital Signs, Last 4 Hours Temp Pulse Resp BP Pulse Ox 01/01/19 11:55 97.5 F L 79 17 99/59 99 General: Conversant, No Apparent Distress HEENT: Atraumatic, Normocephaly, Mucus Membranes Moist Cardiac: Reg Rate and Rhythm, Normal S1 and S2 Lungs: Normal Breath Sounds Neuro: Alert and responsive Abdomen: Soft Skin: No rashes noted on visualized skin Musculoskeletal: No Chest Wall Tenderness Extremities: No Edema, Normal Pulses Results 01/01/19 07:17 01/01/19 07:17 Lab Results 01/01/19 01/01/19 07:17 07:17 WBC 7.4 Hgb 11.1 L Hct 34.2 L Plt Count 347 Sodium 137 Potassium 3.4 L Chloride 100 Carbon Dioxide 23 BUN 34 H Creatinine 1.65 H Glucose 247 H Calcium 9.0 - Imaging and Cardiology Echo: report reviewed Cardiac cath: report reviewed Other Results: 12 hour tele: avg HR=80 - EKG Interpretation EKG results cardiology: personally reviewed Consult Discharge Plan - Plan Referrals: Lavell Crawford Jr, MD [Primary Care Provider] -
[2019-01-01] MEDS ORDERED: 0.9 % Sodium Chloride 250 ML IVC ONE (12:51)
[2019-01-02 04:50] LABS: Calcium 8.5 mg/dL (8.6-10.3); Potassium 3.2 mEq/L (3.5-5.1)
[2019-01-02] MEDS: *HR* Heparin 5,000 UNIT/ML VIAL SQ SCH ×2 (05:34→17:16)
[2019-01-02] MEDS: Aspirin 81 MG TAB.CHEW PO SCH (08:21)
[2019-01-02] MEDS: *HR* Ticagrelor 90 MG TABLET PO SCH ×2 (08:21→20:44)
[2019-01-02] MEDS: Insulin LISPRO 300 UNITS/3 ML VIAL SQ SCH ×4 (08:26→20:46)
[2019-01-02] MEDS ORDERED: 0.9 % Sodium Chloride 1,000 ML IVC SCH (09:30)
--- NOTE | 2019-01-02 09:56 | Cardiology Progress Note ---
Date of Encounter: 01/02/19 Time of Encounter: 09:00 Assessment and Plan (1) Ischemic cardiomyopathy Current Visit: Yes Status: Acute Presented as NSTEMI and acute CHF. TTE prior admission, LVEF 40%. Repeat limited TTE this admission shows LVEF 30-35%. CXR this AM Interval resolution of the mild congestive failure. No acute pulmonary process. Lungs clear to ausculatation. Received IV Lasix this AM. Cumulative I/O -4310 mL. BP marginal. Will start low dose maintenance IVF Continue coreg. Stop lisinopril. Lasix held due to worsening CKD. (2) NSTEMI (non-ST elevation myocardial infarction) Current Visit: Yes Status: Acute Likely NSTEMI in the setting of acute CHF. [facility] completed, patent stents from prior procedure earlier this week. Medical therapy recommended. Initial troponin 15.79. c/o chest pain 06/19. ECG unchanged from previous. Of note, recently discharged on 12/27 s/p anterior STEMI s/p PCI with PTCA/DINORA in the proximal and mid LAD. Reports compliance with all medications including DAPT. Repeat TTE this admission: LVEF 30-35%, segmental LV systolic dysfunction, mild cLVH. DAPT with asa and brilinta, statin, and BB. Cardiac rehab. No issues with right groin cath site. (3) Essential hypertension Current Visit: Yes Status: Acute Currently controlled on home medications. Continue to monitor closely as inpatient. (4) S/P TAVR (transcatheter aortic valve replacement) Current Visit: Yes Status: Acute Hx of severe s/p TAVR at [facility] August 2018. (5) EFREN (acute kidney injury) Current Visit: Yes Status: Acute Suspect EFREN on CKD. x2 [facility] in the past week 12/25, and 12/29. Possible JORGE LUIS. Current admission, presented with acute systolic CHF s/p IV diuresis. IV Lasix stopped on 12/31 d/t worsening SCr. Cumulative I&O: -4 L. CXR 12/31 shows near complete resolution of CHF. Lisinopril dose decreased on 01/01, held today. Due to worsening SCr, fluid bolus given on 01/01 due to possible volume depletion. SCr worsening today again, 1.9. Consult Nephrology for further recommendations. Discussion w patient/family: The assessment and plan as outlined above was discussed with the patient and/or family members who expressed understanding and agreement. All questions were answered. Thank you for involving us in the care of your patient. Please call with any questions. The patient will be discussed and reviewed with Dr. Haider; changes to be made accordingly. Subjective Principal diagnosis: NSTEMI, acute CHF Interval history: Seen and examined. No chest pain overnight. Nausea has resolved. Objective Vital Signs, Last 4 Hours Temp Pulse Resp BP Pulse Ox 01/02/19 08:06 97.7 F 77 18 110/63 100 General: Conversant, No Apparent Distress HEENT: Atraumatic, Normocephaly, Mucus Membranes Moist Cardiac: Reg Rate and Rhythm, Normal S1 and S2 Lungs: Normal Breath Sounds Neuro: Alert and responsive Abdomen: Soft Skin: No rashes noted on visualized skin Musculoskeletal: No Chest Wall Tenderness Extremities: No Edema, Normal Pulses Results 01/01/19 07:17 01/02/19 04:07 Lab Results 01/02/19 04:07 Sodium 137 Potassium 3.2 L Chloride 102 Carbon Dioxide 24 BUN 31 H Creatinine 1.95 H Glucose 241 H Calcium 8.5 L Active Medications Acetaminophen (Tylenol) 650 mg PO Q6HR PRN PRN Reason: Mild Pain Stop: 06/30/19 16:20 Last Admin: 12/31/18 15:02 Dose: 650 mg Documented by: Aspirin (Aspirin) 81 mg PO DAILY [facility] Stop: 07/01/19 09:01 Last Admin: 01/02/19 08:21 Dose: 81 mg Documented by: Carvedilol (Coreg) 6.25 mg PO BIDWM [facility]; Protocol Stop: 06/30/19 17:01 Last Admin: 01/02/19 08:20 Dose: 6.25 mg Documented by: Dextrose/Water (Dextrose 50% (Syg)) 25 ml IVP AD PRN PRN Reason: Hypoglycemia Stop: 06/30/19 18:31 Glucagon (Glucagen) 1 mg IM ONCE PRN PRN Reason: Hypoglycemia Stop: 06/30/19 18:31 Glucose (Gluctose) 15 gm PO ONCE PRN PRN Reason: Hypoglycemia Stop: 06/30/19 18:31 Glucose (Gluctose) 30 gm PO ONCE PRN PRN Reason: Hypoglycemia Stop: 06/30/19 18:31 Heparin Sodium (Porcine) (Heparin) 5,000 unit SQ Q12HCO [facility]; Protocol Stop: 07/01/19 15:01 Last Admin: 01/02/19 05:34 Dose: 5,000 unit Documented by: Dextrose (Dextrose 5%) 1,000 mls @ 100 mls/hr IVC .Q10H PRN PRN Reason: HYPOGLYCEMIA Stop: 06/30/19 18:31 Sodium Chloride (0.9 % Sodium Chloride) 1,000 mls @ 50 mls/hr IVC .Q20H [facility] Stop: 01/03/19 05:29 Last Admin: 01/02/19 09:34 Dose: 50 mls/hr Documented by: Insulin Human Lispro (Humalog) 0 units SQ TIDAC [facility]; Protocol Stop: 06/30/19 18:46 Last Admin: 01/02/19 08:26 Dose: 8 units Documented by: Insulin Human Lispro (Humalog) 0 units SQ HS [facility]; Protocol Stop: 06/30/19 21:01 Last Admin: 01/01/19 21:52 Dose: Not Given Documented by: Ondansetron HCl (Zofran) 4 mg IVP Q6HR PRN; Protocol PRN Reason: Nausea Stop: 07/01/19 09:58 Potassium Chloride (Potassium Chloride) 40 meq PO BID [facility] Stop: 01/02/19 21:01 Last Admin: 01/02/19 08:35 Dose: 40 meq Documented by: Rosuvastatin Calcium (Crestor) 40 mg PO HS [facility] Stop: 06/30/19 21:01 Last Admin: 01/01/19 21:53 Dose: 40 mg Documented by: Ticagrelor (Brilinta) 90 mg PO BID [facility] Stop: 07/01/19 09:01 Last Admin: 01/02/19 08:21 Dose: 90 mg Documented by: - Imaging and Cardiology Chest Xray: report reviewed Echo: report reviewed Cardiac cath: report reviewed Other Results: 12 hour tele: avg HR=76 SR. No events noted. - EKG Interpretation EKG results cardiology: personally reviewed Consult Discharge Plan - Plan Referrals: Lavell Crawford Jr, MD [Primary Care Provider] -
--- NOTE | 2019-01-02 12:24 | Nephrology Consult Note ---
<Genia Ho - Last Filed: 01/02/19 12:16> Date of Encounter: 01/02/19 Time of Encounter: 12:16 Assessment and Plan (1) EFREN (acute kidney injury) Status: Acute Patient presenting normal kidney function previous to left heart caths on 12/25 and 12/29 this month. Patient had one EFREN in July/August of this year, however GFR rebounded to 60. Has never seen a sales representative supervisor in the past. GFR is 34 today. Urine output noted to be 975 for the 24-hour period yesterday and for 75 already for today. UA and urine studies ordered. Retroperitoneal ultrasound ordered. Serum studies ordered as well. Avoid nephrotoxins and renal dose all medications. Strict I&O. Daily weight. Renal diet advised, encouraged PO intake up to 2 liters today to hydration kidney. Recent echo 30-35%, noted. Continue NS at 50/hr until urine studies complete. (2) Chest pain Status: Acute Per cardio. Qualifiers: Chest pain type: chest pain on breathing Qualified Code(s): R07.1 - Chest pain on breathing (3) Essential hypertension Status: Acute Stable, continue current regimen. (4) NSTEMI (non-ST elevation myocardial infarction) Status: Acute Per cardio. (5) S/P TAVR (transcatheter aortic valve replacement) Status: Acute Per cardio. H/x of in August of this year at [facility]. (6) Right kidney stone Status: Acute Pt has h/x of right non obstruction stone. Retroperitoneal US ordered. History of Present Illness - Reason for Consult Consult date: 01/02/19 Acute Kidney Injury Requesting physician: Ghada Richards - Chief Complaint EFREN - History of Present Illness Mr. Naylor is a 78 year old male who presented to the ED on Wednesday with chest pain and shortness of breath. PMH: CHF, coronary artery disease, diabetes, HTN, HLD recent aortic valve replacement 08/2018. Pt has had two recent C's 12/25/18 and 12/29/18. The first with 2 stent placements. [facility] were consulted to manage EFREN. Pt has never seen a nephrolgoist in the past. PCP, Dr. Crawford has never told him he has CKD. GFR is 34 today, and it appears it is EFREN due to lab work with EMR. The recent GFR's are all with the two recent LHC's and very well could be JORGE LUIS. EFREN workup has been ordered to rule out other processes. Pt report he has a right kidney stone, that to his knowledge was not obstructing, Retroperitoneal US ordered today. Patient lives at home with . Denies tobacco or etoh for over 50 years. Denies illicit drug use. Denies any FH of CKD or HD. Denies any chronic NSAID use or recent medication changes. Past Med Surg Social Fam HX - Past Medical History Medical history: arthritis, CHF, coronary artery disease, diabetes, GERD, GI bleed, hyperlipidemia, hypertension, kidney stones, migraine, myocardial infarction, TIA, valvular heart disease Psychiatric history: anxiety, depression - Past Surgical History Surgical History: angioplasty/stent Additional surgical history: kidney stent, Heart valve - Social History Smoking Status: Former smoker Smokeless Tobacco Status: No Alcohol use: none Drug use: none - Family History Sister Adopted: No Family Member Ethnicity: Non- Living Status: Still Living Hx Family Cardiac Disorders: Yes Hx Family Respiratory Disorders: Yes (asthma) Hx Family Cancer: No Hx Family GI Disorders: Yes Hx Family Endocrine Disorder: Yes (diabetic) Hx Family Neuromuscular Disorders: No Hx Family Neurologic Disorders: No Hx Family HEENT Disorders: Yes (glasses) Hx Family Autoimmune Disorders: No Mother Cause of : CAD Hx Family Cardiac Disorders: Yes (CAD, HTN) Hx Family Endocrine Disorder: Yes (diabetic) Hx Family Neurologic Disorders: Yes (CVA) Father Living Status: Cause of : CAD Hx Family Cardiac Disorders: Yes (CAD, HTN) Hx Family Neurologic Disorders: Yes (CVA) Medications and Allergies Aspirin [Lo-Dose Aspirin EC] 81 mg PO QAM 07/25/18 [History] Potassium Chloride [Klor-Con 10] 10 meq PO DAILY 10/27/18 [History] Ranolazine [Ranexa] 1,000 mg PO BID 30 Days #60 tab.er.12h 12/27/18 [Rx] Rosuvastatin [Crestor] 40 mg PO HS 30 Days #30 tablet 12/27/18 [Rx] Carvedilol [Coreg] 6.25 mg PO BIDWM #60 tablet 01/04/19 [Rx] Insulin ASPART [Novolog Flexpen] 8 unit SQ TIDAC 30 Days #3 insuln.pen 01/04/19 [Rx] Insulin DETEMIR [Levemir Flextouch] 30 unit SQ HS #3 insuln.pen 01/04/19 [Rx] Clopidogrel [Plavix] 75 mg PO DAILY #30 tablet 01/10/19 [Rx] Allergy/AdvReac Type Severity Reaction Status Date / Time bee venom protein (honey bee) Allergy Severe Anaphylaxis Verified 01/10/19 11:38 Review of Systems All Systems review (narrative): The remainder of the systems are negative. Constitutional: fatigue, no chills, no fever(s) Cardiovascular: no chest pain, no dyspnea Respiratory: no dyspnea, no hemoptysis, no dyspnea on exertion Gastrointestinal: no change in bowel habits, no diarrhea, no nausea, no vomiting Genitourinary Male: no hematuria, no urinary frequency, no urinary hesitancy, no urinary urgency Exam - Vital Signs Vital signs: Initial Vital Signs Temp Pulse Resp BP Pulse Ox 98.6 F 81 19 130/74 100 12/29/18 13:35 12/29/18 13:35 12/29/18 13:35 12/29/18 13:35 12/29/18 13:35 Vital Signs - Last 8 Hours Temp Pulse Resp BP Pulse Ox 01/02/19 11:01 98.1 F 76 18 114/65 99 01/02/19 08:06 97.7 F 77 18 110/63 100 01/02/19 05:11 77 17 109/61 98 Intake and Output 01/01/19 01/02/19 01/02/19 23:59 07:59 15:59 Intake Total 400 / 400 Output Total 675 / 975 350 / 475 125 / 475 Balance -275 / -575 -350 / -475 -125 / -475 Intake: Oral 400 / 400 Output: Urine 675 / 975 350 / 475 125 / 475 Other: Stool Size Moderate Stool Consistency formed Stool Color Brown # Voids 2 # Bowel Movements 1 Weight 95 kg Blood Glucose* 193 320 Patient Weight 01/02/19 23:59 Weight 95 kg - General Appearance General appearance: well-developed, well-nourished EENT: ATNC, hearing intact, vision intact Neck: supple Respiratory: clear Cardiology: edema (trace edema noted to bilat lower extremities, non pitting. ), normal S1, normal S2 Gastrointestinal: no tenderness, no guarding Integumentary: no rash, warm and dry Neurologic: alert and oriented x3 Musculoskeletal: no deformities, no erythema Psychiatric: mood/affect appropriate, cooperative Results - Lab Results 01/01/19 07:17 01/02/19 04:07 Most recent lab results 01/02/19 04:07 Calcium 8.5 L Consult Discharge Plan - Plan Instructions: Insulin Aspart Protamine/Insulin Aspart (Injection), Insulin Detemir (Injection), Chest Pain (DC), Acute Kidney Injury (DC), How to Check Your Blood Sugar (DC), Diabetes Mellitus Type 2 in Adults (DC), What is Insulin (DC), Giving an Insulin Injection (DC) Referrals: Geoffrey Vega MD [Partnered Physician] - Lavell Crawford Jr, MD [Primary Care Provider] - 01/09/19 3:00 pm (Apt maDE ON 01/04/19.) Jc Dow MD [Partnered Physician] - 01/23/19 3:00 pm Prescriptions: Carvedilol [Coreg] 6.25 mg PO BIDWM #60 tablet Transmission Status: Received by MAGUI MASON [facility] Insulin DETEMIR [Levemir Flextouch] 30 unit SQ HS #3 insuln.pen Prescription Printed Insulin ASPART [Novolog Flexpen] 8 unit SQ TIDAC 30 Days #3 insuln.pen Prescription Printed <Shady Sim - Last Filed: 01/16/19 01:34> Date of Encounter: 01/02/19 Assessment and Plan (1) EFREN (acute kidney injury) Status: Acute (2) Chest pain Status: Acute Qualifiers: Chest pain type: unspecified Qualified Code(s): R07.9 - Chest pain, unspecified (3) Essential hypertension Status: Acute (4) NSTEMI (non-ST elevation myocardial infarction) Status: Acute (5) S/P TAVR (transcatheter aortic valve replacement) Status: Chronic (6) Right kidney stone Status: Chronic Exam - Vital Signs Vital signs: Initial Vital Signs Temp Pulse Resp BP Pulse Ox 98.6 F 81 19 130/74 100 12/29/18 13:35 12/29/18 13:35 12/29/18 13:35 12/29/18 13:35 12/29/18 13:35 Results - Lab Results 01/04/19 09:35 01/04/19 09:35 - Attending Attestation I examined this patient and my medical decision-making was reviewed with the Res ident Physician/TEMPLATE MAKER. I agree with the documented findings, disposition and treatment plan as described except to the extent set forth below. In brief; 78 y o male with PMH of DM, HTN, recent AVR 08/2018 and 2 LHC 12/25 with 2 stents and another [facility] 12/29 admitted with chest pain. Renal consulted for elevated SCr. On exam: Gen: NAD, lungs good areation ant bilat, heart S1S2, ad soft, ext with trace LE bilat and neuro AAOx3. EFREN after iv contrast exposure.WOrkup as above. Avoid nephrotoxins if possible.
[2019-01-02 12:25] LABS: Uric Acid 8.5 mg/dL (2.3-7.6)
[2019-01-02 14:37] LABS: Bilirubin,Urine Negative (Negative); Blood,Urine Small (Negative); Clarity,Urine Cloudy (Clear); Color,Urine Yellow (Yellow); Glucose,Urine (UA) 500 mg/dL (Normal); Ketones,Urine Negative (Negative); Leukocyte Esterase,Urine Negative (Negative); Nitrite,Urine Negative (Negative); PH,Urine 6.5 pH Units (5.0-8.0); Protein,Urine >=300 mg/dL (Neg-Trace); Specific Gravity,Urine 1.018 (1.010-1.025)
[2019-01-02 14:38] LABS: Bacteria,Urine None Seen per hpf (None-Few); Hyaline Casts,Urine Few per lpf (None-Few); RBC,Urine 0-3 per hpf (0-3); Squamous Epithelial Cell,Urine Many per lpf (None-Few); WBC,Urine 15-30 per hpf (0-3)
[2019-01-02 14:44] LABS: Sodium, Urine 32.2 mEq/L
[2019-01-02 15:02] LABS: Granular Casts,Urine Few per lpf (None Seen)
[2019-01-02 15:03] LABS: Renal Epithelial Cells,Urine Few per hpf (None-Few); Transitional Epi Cells,Urine Few per hpf (None-Few)
[2019-01-03] MEDS: *HR* Heparin 5,000 UNIT/ML VIAL SQ SCH ×2 (05:31→16:28)
[2019-01-03 08:34] LABS: Calcium 9.2 mg/dL (8.6-10.3); Potassium 3.9 mEq/L (3.5-5.1)
[2019-01-03] MEDS: Aspirin 81 MG TAB.CHEW PO SCH (08:38)
[2019-01-03] MEDS: Insulin LISPRO 300 UNITS/3 ML VIAL SQ SCH ×4 (08:39→19:35)
[2019-01-03] MEDS: *HR* Ticagrelor 90 MG TABLET PO SCH ×2 (08:39→19:35)
--- NOTE | 2019-01-03 11:23 | Cardiology Progress Note ---
Date of Encounter: 01/03/19 Time of Encounter: 12:00 Assessment and Plan (1) Ischemic cardiomyopathy Current Visit: Yes Status: Acute Presented as NSTEMI and acute CHF. TTE prior admission, LVEF 40%. Repeat limited TTE this admission shows LVEF 30-35%. CXR 01/01 Interval resolution of the mild congestive failure. No acute pulmonary process. Lungs clear to ausculatation. IV lasix held as of 01/01. Cumulative I/O -3851 mL. BP stable. s/p 1 liter of fluid yesterday, SCr continues to elevate, d/w Nephrology will likely give additional fluid today. Continue coreg. Stop lisinopril. Lasix held due to worsening CKD. (2) NSTEMI (non-ST elevation myocardial infarction) Current Visit: Yes Status: Acute Likely NSTEMI in the setting of acute CHF. [facility] completed, patent stents from prior procedure earlier this week. Medical therapy recommended. Initial troponin 15.79. c/o chest pain 06/19. ECG unchanged from previous. Of note, recently discharged on 12/27 s/p anterior STEMI s/p PCI with PTCA/DINORA in the proximal and mid LAD. Reports compliance with all medications including DAPT. Repeat TTE this admission: LVEF 30-35%, segmental LV systolic dysfunction, mild cLVH. DAPT with asa and brilinta, statin, and BB. Cardiac rehab. No issues with right groin cath site. (3) Essential hypertension Current Visit: Yes Status: Acute Currently controlled on home medications. Continue to monitor closely as inpatient. (4) S/P TAVR (transcatheter aortic valve replacement) Current Visit: Yes Status: Acute Hx of severe s/p TAVR at [facility] August 2018. (5) EFREN (acute kidney injury) Current Visit: Yes Status: Acute Suspect EFREN on CKD. x2 C in the past week 12/25, and 12/29. Possible JORGE LUIS. Current admission, presented with acute systolic CHF s/p IV diuresis. IV Lasix stopped on 12/31 d/t worsening SCr. Cumulative I&O: -3800 L. CXR 12/31 shows near complete resolution of CHF. Lisinopril dose decreased on 01/01, stopped 12/12. s/p 1 liter of fluid 01/02, d/w Nephrology will likely give additional fluid d/t suspected JORGE LUIS SCr worsening today again, 2.09. Consult Nephrology for further recommendations. Discussion w patient/family: The assessment and plan as outlined above was discussed with the patient and/or family members who expressed understanding and agreement. All questions were answered. Thank you for involving us in the care of your patient. Please call with any questions. The patient will be discussed and reviewed with Dr. Haider; changes to be made accordingly. Subjective Principal diagnosis: NSTEMI, acute CHF Interval history: Seen and examined. No chest pain overnight. Nausea has resolved. Reports feels well today. Urine color improving. Objective General: Conversant, No Apparent Distress HEENT: Atraumatic, Normocephaly, Mucus Membranes Moist Cardiac: Reg Rate and Rhythm, Normal S1 and S2 Lungs: Normal Breath Sounds Neuro: Alert and responsive Abdomen: Soft Skin: No rashes noted on visualized skin Musculoskeletal: No Chest Wall Tenderness Extremities: No Edema, Normal Pulses Results 01/01/19 07:17 01/03/19 07:53 Lab Results 01/02/19 01/03/19 04:07 07:53 Sodium 137 136 Potassium 3.2 L 3.9 Chloride 102 105 Carbon Dioxide 24 22 L BUN 31 H 27 H Creatinine 1.95 H 2.04 H Glucose 241 H 210 H Calcium 8.5 L 9.2 Active Medications Acetaminophen (Tylenol) 650 mg PO Q6HR PRN PRN Reason: Mild Pain Stop: 06/30/19 16:20 Last Admin: 12/31/18 15:02 Dose: 650 mg Documented by: Aspirin (Aspirin) 81 mg PO DAILY [facility] Stop: 07/01/19 09:01 Last Admin: 01/03/19 08:38 Dose: 81 mg Documented by: Carvedilol (Coreg) 6.25 mg PO BIDWM [facility]; Protocol Stop: 06/30/19 17:01 Last Admin: 01/03/19 08:38 Dose: 6.25 mg Documented by: Dextrose/Water (Dextrose 50% (Syg)) 25 ml IVP AD PRN PRN Reason: Hypoglycemia Stop: 06/30/19 18:31 Docusate Sodium (Colace) 100 mg PO DAILY [facility]; Protocol PRN Reason: Constipation Stop: 07/04/19 18:20 Last Admin: 01/02/19 18:54 Dose: 100 mg Documented by: Glucagon (Glucagen) 1 mg IM ONCE PRN PRN Reason: Hypoglycemia Stop: 06/30/19 18:31 Glucose (Gluctose) 15 gm PO ONCE PRN PRN Reason: Hypoglycemia Stop: 06/30/19 18:31 Glucose (Gluctose) 30 gm PO ONCE PRN PRN Reason: Hypoglycemia Stop: 06/30/19 18:31 Heparin Sodium (Porcine) (Heparin) 5,000 unit SQ Q12HCO [facility]; Protocol Stop: 07/01/19 15:01 Last Admin: 01/03/19 05:31 Dose: 5,000 unit Documented by: Dextrose (Dextrose 5%) 1,000 mls @ 100 mls/hr IVC .Q10H PRN PRN Reason: HYPOGLYCEMIA Stop: 06/30/19 18:31 Sodium Chloride (0.9 % Sodium Chloride) 1,000 mls @ 75 mls/hr IVC .[id number] [facility] Stop: 01/04/19 01:49 Insulin Human Lispro (Humalog) 0 units SQ TIDAC [facility]; Protocol Stop: 06/30/19 18:46 Last Admin: 01/03/19 08:39 Dose: 8 units Documented by: Insulin Human Lispro (Humalog) 0 units SQ HS [facility]; Protocol Stop: 06/30/19 21:01 Last Admin: 01/02/19 20:46 Dose: 4 units Documented by: Ondansetron HCl (Zofran) 4 mg IVP Q6HR PRN; Protocol PRN Reason: Nausea Stop: 07/01/19 09:58 Rosuvastatin Calcium (Crestor) 40 mg PO HS [facility] Stop: 06/30/19 21:01 Last Admin: 01/02/19 20:44 Dose: 40 mg Documented by: Ticagrelor (Brilinta) 90 mg PO BID [facility] Stop: 07/01/19 09:01 Last Admin: 01/03/19 08:39 Dose: 90 mg Documented by: - Imaging and Cardiology Chest Xray: report reviewed Echo: report reviewed Cardiac cath: report reviewed Other Results: 12 hour tele: avg HR=80 SR. - EKG Interpretation EKG results cardiology: personally reviewed Consult Discharge Plan - Plan Referrals: Lavell Crawford Jr, MD [Primary Care Provider] -
[2019-01-03] MEDS ORDERED: 0.9 % Sodium Chloride 1,000 ML IVC SCH (12:30)
--- NOTE | 2019-01-03 13:13 | Nephrology Progress Note ---
Date of Encounter: 01/03/19 Time of Encounter: 13:11 - Assessment and Plan (1) EFREN (acute kidney injury) Current Visit: Yes Status: Acute EFREN most likely JORGE LUIS. BMP's daily. Patient presumed normal kidney function previous to left heart caths on 12/25 and 12/29 this month. Patient had one EFREN in July/August of this year, however GFR rebounded to 60. Has never seen a jewelry consultant in the past. GFR is 32 today down from 34, but stable. Urine output 475 and 550 already for today. UA and urine studies noted. Retroperitoneal ultrasound normal. Serum studies noted. Avoid nephrotoxins and renal dose all medications. Strict I&O. Daily weight. Renal diet advised, encouraged PO intake up to 2 liters today to hydrate kidney. Recent echo 30-35%, noted. Continue NS at 75 hr x 1 (2) Chest pain Current Visit: Yes Status: Acute Per cardio. Qualifiers: Chest pain type: chest pain on breathing Qualified Code(s): R07.1 - Chest pain on breathing; R07.81 - Pleurodynia (3) Essential hypertension Current Visit: Yes Status: Acute Stable, continue current regimen. (4) NSTEMI (non-ST elevation myocardial infarction) Current Visit: Yes Status: Acute Per cardio. (5) S/P TAVR (transcatheter aortic valve replacement) Current Visit: Yes Status: Acute Per cardio. H/x of in August of this year at [facility]. (6) Right kidney stone Current Visit: Yes Status: Acute Pt has h/x of right non obstruction stone. Retroperitoneal US normal. Subjective Principal diagnosis: NSTEMI, acute CHF Interval history: Pt seen and examined, is overall feeling well. Denies chest pain or shortness of breath. Denies nausea, vomiting, diarrhea. Objective - Vital Signs Vital signs: Vital Signs Temp Pulse Resp BP Pulse Ox 01/03/19 12:08 98.0 F 75 18 109/64 97 01/03/19 06:32 98.0 F 76 18 113/63 99 01/03/19 03:04 97.8 F 71 17 108/67 99 01/02/19 23:37 98.2 F 79 17 109/63 99 01/02/19 18:41 98 F 84 18 109/63 97 01/02/19 16:50 98.2 F 87 18 121/72 99 Intake and Output 01/02/19 01/03/19 01/03/19 23:59 07:59 15:59 Intake Total 1000 / 1000 Output Total 300 / 550 250 / 550 Balance 700 / 450 -250 / 450 Intake: IV Fluids 1000 / 1000 0.9 % Sodium Chloride 1,000 ML 1000 / 1000 @ 50 mls/hr IVC .Q20H [facility] Rx#: [id number] Output: Urine 300 / 550 250 / 550 Other: Weight 95.6 kg Blood Glucose* 254 225 318 - General Appearance General appearance: Present: well-developed, well-nourished EENT: Present: ATNC, hearing intact, vision intact Neck: Present: supple Respiratory: Present: clear Cardiology: Present: edema (Trace nonpitting edema noted to bilat lower extremities.), normal S1, normal S2 Gastrointestinal: Present: normoactive bowel sounds, no tenderness, no guarding Integumentary: Present: no rash, warm and dry Neurologic: Present: alert and oriented x3 Musculoskeletal: Present: no deformities, no erythema Psychiatric: Present: mood/affect appropriate, cooperative - Lab 01/01/19 07:17 01/03/19 07:53 Most recent lab results 01/03/19 07:53 Calcium 9.2 Consult Discharge Plan - Plan Referrals: Lavell Crawford Jr, MD [Primary Care Provider] -
[2019-01-04] MEDS: *HR* Heparin 5,000 UNIT/ML VIAL SQ SCH (05:37)
[2019-01-04] MEDS: Insulin LISPRO 300 UNITS/3 ML VIAL SQ SCH ×2 (08:10→12:25)
[2019-01-04] MEDS: *HR* Ticagrelor 90 MG TABLET PO SCH (08:10)
[2019-01-04] MEDS: Aspirin 81 MG TAB.CHEW PO SCH (08:10)
[2019-01-04 09:48] LABS: Basophils % 0.4 %; Eosinophils # 0.3 K/mcL (0.0-0.6); Eosinophils % 3.7 %; Hematocrit 31.8 % (37.5-50.1); Hemoglobin 10.3 g/dL (12.9-16.9); Immature Granulocytes % 0.6 % (0-4); Lymphocytes # 0.4 K/mcL (0.6-4.6); Lymphocytes % 5.2 %; Mean Corpuscular HGB Conc 32.4 g/dL (31.6-35.5); Mean Corpuscular Hemoglobin 27.8 pg (28.0-33.3); Mean Corpuscular Volume 85.9 fL (83.0-100.0); Mean Platelet Volume 10.1 fL (9.4-12.4); Monocytes # 0.5 K/mcL (0.0-1.3); Monocytes % 7.2 %; Neutrophils # 5.8 K/mcL (1.6-8.9); Platelet Count 315 K/mcL (140-400); Red Cell Distribution Width 16.8 % (11.5-14.5); Segmented Neutrophils % 82.9 %
[2019-01-04 10:10] LABS: Calcium 9.3 mg/dL (8.6-10.3); Potassium 4.1 mEq/L (3.5-5.1)
[2019-01-04 12:20] VITALS: BP 125/72
--- NOTE | 2019-01-04 13:59 | Nephrology Progress Note ---
Date of Encounter: 01/04/19 Time of Encounter: 13:56 - Assessment and Plan (1) EFREN (acute kidney injury) Current Visit: Yes Status: Acute EFREN most likely JORGE LUIS. BMP's daily. Patient presumed normal kidney function previous to left heart caths on 12/25 and 12/29 this month. Patient had one EFREN in July/August of this year, however GFR rebounded to 60. Has never seen a histology technologist in the past, will f/u with Dr. Kline in 2 weeks outpatient. BMP 7 days after d/c. GFR is 31 down from 32 yesterday, stable. Urine output 1275 and 950 already for today, reassuring for some renal recovery. UA and urine studies noted. Retroperitoneal ultrasound normal. Serum studies noted. Avoid nephrotoxins and renal dose all medications. Strict I&O. Daily weight. Renal diet advised, encouraged PO intake up to 2 liters today to hydrate kidney. Recent echo 30-35%, noted. May go home from renal standpoint, with close f/u in the office. As above, he can see Dr. Kline in 2 weeks. BMP in 7 days from discharge. (2) Chest pain Current Visit: Yes Status: Acute Per cardio. Qualifiers: Chest pain type: chest pain on breathing Qualified Code(s): R07.1 - Chest pain on breathing; R07.81 - Pleurodynia (3) Essential hypertension Current Visit: Yes Status: Acute Stable, continue current regimen. (4) NSTEMI (non-ST elevation myocardial infarction) Current Visit: Yes Status: Acute Per cardio. (5) S/P TAVR (transcatheter aortic valve replacement) Current Visit: Yes Status: Acute Per cardio. H/x of in August of this year at [facility]. (6) Right kidney stone Current Visit: Yes Status: Acute Pt has h/x of right non obstruction stone. Retroperitoneal US normal. Subjective Principal diagnosis: NSTEMI, acute CHF Interval history: Pt seen and examined, is overall feeling discouraged, would like to go home. Denies chest pain or shortness of breath. Denies nausea, vomiting, diarrhea. Objective - Vital Signs Vital signs: Vital Signs Temp Pulse Resp BP Pulse Ox 01/04/19 12:15 97.4 F L 84 16 125/72 99 01/04/19 07:53 97.7 F 79 16 119/57 97 01/04/19 03:35 98.2 F 83 16 113/62 99 01/03/19 23:11 98.8 F 83 16 121/68 97 01/03/19 18:37 97.7 F 78 17 113/64 99 01/03/19 16:08 97.7 F 82 18 119/70 98 Intake and Output 01/03/19 01/04/19 01/04/19 23:59 07:59 15:59 Intake Total 250 / 1250 1000 / 1000 Output Total 725 / 1275 950 / 950 Balance -475 / -25 50 / 50 Intake: IV Fluids 1000 / 1000 0.9 % Sodium Chloride 1,000 ML 1000 / 1000 @ 75 mls/hr IVC .[id number] MELLISA Rx #:[id number] Oral 250 / 250 0 / 0 Output: Urine 725 / 1275 950 / 950 Other: Weight 95.8 kg Blood Glucose* 179 225 - General Appearance General appearance: Present: well-developed, well-nourished EENT: Present: ATNC, hearing intact, vision intact Neck: Present: supple Respiratory: Present: clear Cardiology: Present: no edema, normal S1, normal S2 Gastrointestinal: Present: normoactive bowel sounds, no tenderness, no guarding Integumentary: Present: no rash, warm and dry Neurologic: Present: alert and oriented x3 Musculoskeletal: Present: no deformities, no erythema Psychiatric: Present: mood/affect appropriate, cooperative - Lab 01/04/19 09:35 01/04/19 09:35 Most recent lab results 01/04/19 09:35 Calcium 9.3 Consult Discharge Plan - Plan Referrals: Lavell Crawford Jr, MD [Primary Care Provider] -
[2019-01-04 14:31] LABS: Estimated Average Glucose 200 mg/dl
--- NOTE | 2019-01-04 15:00 | Discharge Summary ---
Date of Encounter: 01/05/19 Time of Encounter: 12:45 - Discharge Diagnosis (1) NSTEMI (non-ST elevation myocardial infarction) Priority: Primary Status: Acute (2) EFREN (acute kidney injury) Priority: Primary Status: Acute (3) S/P TAVR (transcatheter aortic valve replacement) Priority: Secondary Status: Chronic (4) Ischemic cardiomyopathy Priority: Primary Status: Acute (5) Right kidney stone Priority: Secondary Status: Chronic - Hospital Course Hospital course: Mr. Naylor is a 78 year old male with history of HTN, renal colic, severe s/p recent TAVR ([place] July 2018), and recent STEMI discharged 12/27/18 who presented to the ED with severe substernal chest pain and SOB. Due to persisted ST elevation he was taken to cardiac cathteterization lab urgently and found to have patent LAD stent. He was treated for acute on chronic systolic CHF with IV diuretic. Unfortunately he developed EFREN presumed to be JORGE LUIS and nephrology was consulted. Diuretic was stopped. His CHF did resolve. CHF education given. He will follow with nephrology in the out-pt setting. Urology f/u made for known non-obstructive kidney stone. Hospitalist consulted for diabetic medication recommendations in the setting of EFREN. His home medications included metformin and amaryl. He will be send home on Novolog and levemir. Cardiac testing: [facility] 12/29/18: Patent LAD stent. 55% stenosis mRCA, mild disease otherwise. [facility] 12/25/18: (STEMI) severe 1v CAD, successful PTCA/BMS in the proximal-mid LAD, previously jailed diagonal in the proximal mLAD. s/p TAVR. Otherwise, 50-60% dLCx and 1st OM; 30% pRCA TTE 12/25/18: LVEF 40%, LV segmental wall motion abnormality, mild to moderate cLVH, RV dilated with normal function, bioprosthetic AV not well visualized, mild MR, mild ID. [place], apical anterior, apical septal, mid anterior septal, and basal anterior septal murguia were hypokinetic. ( [facility] 08/09/18 ([place]): s/p PTCA/DINORA to mRCA and PTCA to diagonal 2; otherwise moderate non-obstructive CAD. - Time Spent with Patient Total time spent providing and/or coordinating discharge services: Greater than 30 minutes (D/c summary, d/c teaching, med rec.) - Discharge Medications Prescriptions: New Alcohol Antiseptic Pads [Alcohol Pads] 1 each TP AD 30 Days #100 med..pad Lancets 1 each QID #100 each Insulin DETEMIR [Levemir Flextouch] 30 unit SQ HS #3 insuln.pen Insulin ASPART [Novolog Flexpen] 8 unit SQ TIDAC 30 Days #3 insuln.pen Blood Sugar Diagnostic [Test Strips] 1 each QID #100 strip Pen Needle, Diabetic [Pen [place]] 1 each QID #100 dis.needle Carvedilol [Coreg] 6.25 mg PO BIDWM #60 tablet Continued Levomefolate/B6/B12/Algal Oil [Metanx Capsule] 1 cap PO BID Aspirin [Lo-Dose Aspirin EC] 81 mg PO QAM Ticagrelor [Brilinta] 90 mg PO BID 30 Days #60 tablet Rosuvastatin [Crestor] 40 mg PO HS 30 Days #30 tablet Ranolazine [Ranexa] 1,000 mg PO BID 30 Days #60 tab.er.12h Discontinued Metformin HCl 1,000 mg PO BID Glimepiride [Amaryl] 4 mg PO QAM Metoprolol XL (24 HR) Succ [Toprol Xl] 50 mg PO DAILY 30 Days #30 tab.er.24h Lisinopril [Zestril] 2.5 mg PO DAILY 30 Days #30 tablet No Action Potassium Chloride [Klor-Con 10] 10 meq PO DAILY Home Medications: Aspirin [Lo-Dose Aspirin EC] 81 mg PO QAM 07/25/18 [History] Levomefolate/B6/B12/Algal Oil [Metanx Capsule] 1 cap PO BID 07/25/18 [History] Potassium Chloride [Klor-Con 10] 10 meq PO DAILY 10/27/18 [History] Ranolazine [Ranexa] 1,000 mg PO BID 30 Days #60 tab.er.12h 12/27/18 [Rx] Rosuvastatin [Crestor] 40 mg PO HS 30 Days #30 tablet 12/27/18 [Rx] Ticagrelor [Brilinta] 90 mg PO BID 30 Days #60 tablet 12/27/18 [Rx] Alcohol Antiseptic Pads [Alcohol Pads] 1 each TP AD 30 Days #100 med..pad 01/04/19 [Rx] Blood Sugar Diagnostic [Test Strips] 1 each QID #100 strip 01/04/19 [Rx] Carvedilol [Coreg] 6.25 mg PO BIDWM #60 tablet 01/04/19 [Rx] Insulin ASPART [Novolog Flexpen] 8 unit SQ TIDAC 30 Days #3 insuln.pen 01/04/19 [Rx] Insulin DETEMIR [Levemir Flextouch] 30 unit SQ HS #3 insuln.pen 01/04/19 [Rx] Lancets 1 each QID #100 each 01/04/19 [Rx] Pen Needle, Diabetic [Pen [place]] 1 each QID #100 dis.needle 01/04/19 [Rx] Allergies/Adverse Reactions: Allergy/AdvReac Type Severity Reaction Status Date / Time bee venom protein (honey bee) Allergy Severe Anaphylaxis Verified 12/25/18 17:23 Date of admission: 12/29/18 17:16 Primary care physician: Lavell Crawford Jr, MD Consults: 12/29/18 15:45 Consult to Cardiac Rehabilitation-Phase1 [CONS] Routine Comment: Reason for Consult: STEMI Call Completed: No 12/30/18 08:20 Consult to Nurse Navigator [CONS] Routine Comment: CHF teaching 01/02/19 09:53 Consult to Nephrology [CONS] Routine Consulting Provider: Kidney Gisel/ELIECER/DENIS/ARNULFO Reason for Consult: EFREN on CKD. ?JORGE LUIS Time Notified: 10:00 Call Completed: Yes Physical Examination Vital Signs, Last 4 Hours Temp Pulse Resp BP Pulse Ox 01/04/19 12:15 97.4 F L 84 16 125/72 99 General: Conversant, No Apparent Distress HEENT: Atraumatic, Normocephaly, Mucus Membranes Moist Neck: No JVD, Normal carotid pulses Cardiac: Reg Rate and Rhythm, Normal S1 and S2, No Murmur Lungs: Normal Breath Sounds, No Wheeze, Rales, Rhonchi Neuro: Alert and responsive, No focal deficits noted Abdomen: Soft, Non-Tender Skin: No rashes noted on visualized skin Musculoskeletal: No Chest Wall Tenderness Extremities: No Clubbing, No Cyanosis, No Edema, Normal Pulses - Patient Status Disposition: Home, Self-Care Condition: Good Overall status at discharge: patient is progressing back to baseline - Discharge Instructions Instructions: Insulin Aspart Protamine/Insulin Aspart (Injection), Insulin Detemir (Injection), Chest Pain (DC), Acute Kidney Injury (DC), How to Check Your Blood Sugar (DC), Diabetes Mellitus Type 2 in Adults (DC), What is Insulin (DC), Giving an Insulin Injection (DC) Follow Up With: Geoffrey Vega MD [Partnered Physician] - Lavell Crawford Jr, MD [Primary Care Provider] - 01/09/19 3:00 pm (Apt maDE ON 01/04/19.) Jc Dow MD [Partnered Physician] - 01/23/19 3:00 pm - Diet and Activity Activity: increase activity as tolerated Diet: low fat, low cholesterol, low salt diet
--- NOTE | 2019-01-04 16:46 | Internal Medicine Consult Note ---
Date of Encounter: 01/04/19 Time of Encounter: 15:20 - Summary of Assessment and Plan Summary of Assessment and Plan: Type 2 diabetes- patient on glipizide and metformin for 15 years recent left h eart catheter and acute renal injury attributed to contrast-induced nephropathy. Discussed at length regarding pharmacological treatment options patient initially has attempts to insulin therapy however given his hemoglobin A1c of 8.6 patient is is at the threshold where insulin therapy was indicated, is agreeable to insulin therapy he will be discharged on basal insulin as well as short-acting insulin before meals. Patient was educated on insulin therapy and injection techniques his nurse will reinforce and demonstrates how to use the pen needles. Given his weight of 95 kg patient total insulin requirement will be 95 units of which 30% would be basal and the 60% short-acting however given the patient is new to insulin therapy will start him on 30 units of Levemir and per point of care glucose monitoring he is requiring 8 units before meals as such will give patient 8 units 3 times a day before meals of NovoLog. Patient was instructed to follow his primary care physician for further dose titration. Thank you for this consult and appreciate the invite to part take in care of this patient - Time Spent With Patient Total time spent is greater than 50% in coordination of care (as documented) at patient's floor/unit and/or counseling patient: Internal Medicine - CN: HPI - Data of Consult Patient: new to practice Requesting Physician: Ravi Minaya MD - Consult Narrative Reason for consult: Diabetes medical management History of present illness: Mr. Naylor is a 78 year old male with a history of hypertension, aortic stenosis status post T aVR who was hospitalized for STEMI on December 27 2018 was discharged but presented with complaints of chest pain. Patient had left heart catheter which according to the report was found to have patent stent. However during this hospitalization patient developed acute kidney injury and was attributed to contrast-induced nephropathy. During his hospital stay he was seen by the slubber hand. Patient also has history of diabetes for which he was on metformin and glipizide however upon discharge we have been consulted for diabetic management given that he is not considered a candidate for metformin. Patient endorses a history of diabetes for over many years he did this over 15 years and he has been on sulfonylurea and metformin. He denies being on any insulin therapy and was initially hesitant to discuss any insulin therapy initiation. Of note his hemoglobin A1c is 8.6 he could not recall his last hemoglobin A1c but stated that his primary care physician checks it once every year. Upon further deliberations and discussion order pharmacological treatment options patient has opted to undergo insulin therapy. He will be educated on injection technique prior to discharge. He does admit to having his glucometer machine but seldom test his blood sugar. He was educated on insulin therapy medication adherence as well as compliance with dietary and treatment plan. Past Med Surg Social Fam HX - Past Medical History Medical history: arthritis, CHF, coronary artery disease, diabetes, GERD, GI bleed, hyperlipidemia, hypertension, kidney stones, migraine, myocardial infarction, TIA, valvular heart disease Psychiatric history: anxiety, depression - Past Surgical History Surgical History: angioplasty/stent Additional surgical history: kidney stent, Heart valve - Social History Smoking Status: Former smoker Smokeless Tobacco Status: No Alcohol use: none Drug use: none - Family History Sister Adopted: No Family Member Ethnicity: Non- Living Status: Still Living Hx Family Cardiac Disorders: Yes Hx Family Respiratory Disorders: Yes (asthma) Hx Family Cancer: No Hx Family GI Disorders: Yes Hx Family Endocrine Disorder: Yes (diabetic) Hx Family Neuromuscular Disorders: No Hx Family Neurologic Disorders: No Hx Family HEENT Disorders: Yes (glasses) Hx Family Autoimmune Disorders: No Mother Cause of : CAD Hx Family Cardiac Disorders: Yes (CAD, HTN) Hx Family Endocrine Disorder: Yes (diabetic) Hx Family Neurologic Disorders: Yes (CVA) Father Living Status: Cause of : CAD Hx Family Cardiac Disorders: Yes (CAD, HTN) Hx Family Neurologic Disorders: Yes (CVA) Review of systems: GENERAL: Denies fever, chills, fatigue or night sweats. DERMATOLOGIC: Denies itch, rash or lesions HEENT: Denies headache, blurriness, diplopia or decreased visual acuity, ear pain, tinnitus, rhinorrhea, sinus tenderness or sore throat RESPIRATORY: Denies SOB, cough, hemoptysis or pleuritic chest pain CARDIOVASCULAR: Denies chest pain, LE edema, palpitation or syncope GASTRO INTESTINAL: Denies cramps, nausea/vomiting, diarrhea or constipation, melena MUSCULOSKELATAL: Denies muscle pain/weakness, joint tenderness/pain or swelling PSYCH: Denies worsening anxiety, or depression NEURO: Denies vertigo, dizziness, or ataxia GENITURINARY: Denies dysuria, nocturia or urinary incontinence Internal Medicine - CN: Meds Aspirin [Lo-Dose Aspirin EC] 81 mg PO QAM 07/25/18 [History] Levomefolate/B6/B12/Algal Oil [Metanx Capsule] 1 cap PO BID 07/25/18 [History] Potassium Chloride [Klor-Con 10] 10 meq PO DAILY 10/27/18 [History] Lisinopril [Zestril] 2.5 mg PO DAILY 30 Days #30 tablet 12/27/18 [Rx] Metoprolol XL (24 HR) Succ [Toprol Xl] 50 mg PO DAILY 30 Days #30 tab.er.24h 12/27/18 [Rx] Ranolazine [Ranexa] 1,000 mg PO BID 30 Days #60 tab.er.12h 12/27/18 [Rx] Rosuvastatin [Crestor] 40 mg PO HS 30 Days #30 tablet 12/27/18 [Rx] Ticagrelor [Brilinta] 90 mg PO BID 30 Days #60 tablet 12/27/18 [Rx] Alcohol Antiseptic Pads [Alcohol Pads] 1 each TP AD 30 Days #100 med..pad 01/04/19 [Rx] Blood Sugar Diagnostic [Test Strips] 1 each QID #100 strip 01/04/19 [Rx] Insulin ASPART [Novolog Flexpen] 8 unit SQ TIDAC 30 Days #3 insuln.pen 01/04/19 [Rx] Insulin DETEMIR [Levemir Flextouch] 30 unit SQ HS #3 insuln.pen 01/04/19 [Rx] Lancets 1 each QID #100 each 01/04/19 [Rx] Pen Needle, Diabetic [Pen [place]] 1 each QID #100 dis.needle 01/04/19 [Rx] Allergy/AdvReac Type Severity Reaction Status Date / Time bee venom protein (honey bee) Allergy Severe Anaphylaxis Verified 12/25/18 17:23 Hospitalist - CN: Exam - Constitutional Vitals: Temp Pulse Resp BP Pulse Ox 97.4 F L 84 16 125/72 99 01/04/19 12:15 01/04/19 12:15 01/04/19 12:15 01/04/19 12:15 01/04/19 12:15 Exam: GENERAL: NAD, A&O x3, pleasant and conversant, , female friend were at the bedside SKIN: No skin lesions or rashes, non-jaundiced EYES: EOMI, PERRLA, no sclera icterus HENT: Head atraumatic, no facial asymmetry, frontal and maxillary sinus non- tender, normal hearing, oropharynx and mucosa moist and without any exudates NECK: No cervical lymphadenopathy, trachea midline, thyroid is palpable does not appear enlarged LUNGS: vesicular breath sounds, clear to auscultation, no wheeze, rhonchi, rales or crackles. Non labored respirations HEART: Normal rate and rhythm, no murmurs or rubs ABDOMEN: soft, non-tender, non-distended, bowel sounds x 4 normoactive EXTRMITIES: No LE asymmetry, No LE edema, pedal pulses 1+ and radial pulses 2 + and equal bilaterally NEURO: Speech and comprehension appears intact. PSYCH: Cooperative, non- anxious or irritable, mood and affect is appropriate Internal Medicine - CN: Reslt - Labs CBC & Chem 7: 01/04/19 09:35 01/04/19 09:35 Labs: Short CBC 01/04/19 Range/Units 09:35 WBC 7.0 (4.3-11.1) K/mcL Hgb 10.3 L (12.9-16.9) g/dL Hct 31.8 L (37.5-50.1) % Plt Count 315 (140-400) K/mcL Neutrophils # 5.8 (1.6-8.9) K/mcL BMP 01/04/19 09:35 Sodium 137 Potassium 4.1 Chloride 104 Carbon Dioxide 24 BUN 27 H Creatinine 2.06 H Glucose 322 H Calcium 9.3 - ABG Interpretation ABG results: PT/INR, D-dimer PT 14.7 Seconds (9.4-12.1) H 12/29/18 13:47 Consult Discharge Plan - Plan Instructions: Insulin Aspart Protamine/Insulin Aspart (Injection), Insulin Detemir (Injection), Chest Pain (DC), Acute Kidney Injury (DC), How to Check Your Blood Sugar (DC), Diabetes Mellitus Type 2 in Adults (DC), What is Insulin (DC), Giving an Insulin Injection (DC) Referrals: Geoffrey Vega MD [Partnered Physician] - Lavell Crawford Jr, MD [Primary Care Provider] - 01/09/19 3:00 pm (Apt maDE ON 01/04/19.) Jc Dow MD [Partnered Physician] - 01/23/19 3:00 pm Prescriptions: Alcohol Antiseptic Pads [Alcohol Pads] 1 each TP AD 30 Days #100 med..pad Prescription Printed Lancets 1 each MC QID #100 each Prescription Printed Insulin DETEMIR [Levemir Flextouch] 30 unit SQ HS #3 insuln.pen Prescription Printed Insulin ASPART [Novolog Flexpen] 8 unit SQ TIDAC 30 Days #3 insuln.pen Prescription Printed Pen Needle, Diabetic [Pen [place]] 1 each MC QID #100 dis.needle Prescription Printed Blood Sugar Diagnostic [Test Strips] 1 each MC QID #100 strip Prescription Printed
== END 2019-01-04 17:03 | disposition home or self-care (01) | DRG 280 ==
LOC: EMEROOARM 13:29 → ICNU 17:16 → 2ANU 21:06
PROVIDERS: ADMIT Internal Medicine Cardiovascular Disease; ATTEND Internal Medicine Cardiovascular Disease

== ENCOUNTER 2019-01-09 00:49 | Observation (INO) ==
[2019-01-09 01:40] LABS: Basophils % 0.3 %; Eosinophils % 0.4 %; Hematocrit 31.7 % (37.5-50.1); Hemoglobin 10.4 g/dL (12.9-16.9); Immature Granulocytes % 0.7 % (0-4); Lymphocytes # 0.4 K/mcL (0.6-4.6); Lymphocytes % 3.8 %; Mean Corpuscular HGB Conc 32.8 g/dL (31.6-35.5); Mean Corpuscular Volume 85.4 fL (83.0-100.0); Mean Platelet Volume 10.3 fL (9.4-12.4); Monocytes # 0.9 K/mcL (0.0-1.3); Monocytes % 8.5 %; Neutrophils # 9.2 K/mcL (1.6-8.9); Platelet Count 347 K/mcL (140-400); Red Blood Count 3.71 M/mcL (4.19-5.50); Red Cell Distribution Width 17.2 % (11.5-14.5); Segmented Neutrophils % 86.3 %
[2019-01-09 01:42] LABS: White Blood Count 10.7 K/mcL (4.3-11.1)
[2019-01-09 01:59] LABS: Calcium 8.7 mg/dL (8.6-10.3); Magnesium 2.7 mg/dL (1.6-2.6); Potassium 5.3 mEq/L (3.5-5.1); Troponin I 0.38 ng/mL (< 0.04)
[2019-01-09] MEDS ORDERED: Naloxone 0.4 MG/ML INJ IVP PRN (07:44)
[2019-01-09] MEDS ORDERED: Ondansetron 4 MG/2 ML VIAL IVP PRN (07:44)
[2019-01-09] MEDS ORDERED: Acetaminophen 325 MG TABLET PO PRN (07:44)
[2019-01-09] MEDS ORDERED: *HR* Dextrose 25% in Water (Syg) 10 ML SYRINGE IVP ONE (08:18)
[2019-01-09 08:23] LABS: Hematocrit 32.4 % (37.5-50.1); Hemoglobin 10.9 g/dL (12.9-16.9)
[2019-01-09] MEDS ORDERED: *HR* Dextrose 50 % in Water (Syg) 50 ML SYRINGE IVP ONE (08:48)
[2019-01-09] MEDS ORDERED: Dextrose Gel 15 GM/37.5 ML TUBE PO PRN ×2 (09:14)
[2019-01-09] MEDS ORDERED: *HR* Dextrose 50 % in Water (Syg) 50 ML SYRINGE IVP PRN (09:14)
[2019-01-09] MEDS ORDERED: D5% in Water 1,000 ML IVC PRN (09:14)
[2019-01-09] MEDS: Ranolazine 500 MG TAB.ER.12H PO SCH ×2 (09:40→21:32)
[2019-01-09] MEDS: *HR* Ticagrelor 90 MG TABLET PO SCH ×2 (09:41→21:32)
[2019-01-09] MEDS: Aspirin Enteric Coated 81 MG Tablet PO SCH (09:41)
[2019-01-09] MEDS: Insulin LISPRO 300 UNITS/3 ML VIAL SQ SCH ×3 (11:20→16:51)
[2019-01-09] MEDS ORDERED: Insulin LISPRO 300 UNITS/3 ML VIAL SQ SCH ×2 (12:00→21:00)
[2019-01-09 13:44] LABS: Bilirubin,Urine Small (Negative); Blood,Urine Large (Negative); Clarity,Urine Cloudy (Clear); Glucose,Urine (UA) Normal (Normal); Ketones,Urine Negative (Negative); Leukocyte Esterase,Urine Small (Negative); Nitrite,Urine Negative (Negative); PH,Urine 5.5 pH Units (5.0-8.0); Protein,Urine >=300 mg/dL (Neg-Trace); Specific Gravity,Urine 1.024 (1.010-1.025); Urobilinogen,Urine Normal (Normal)
[2019-01-09 13:46] LABS: Bacteria,Urine None Seen per hpf (None-Few); Hyaline Casts,Urine None Seen per lpf (None-Few); RBC,Urine TNTC per hpf (0-3); Squamous Epithelial Cell,Urine Many per lpf (None-Few); WBC,Urine 15-30 per hpf (0-3)
[2019-01-09 13:47] LABS: Color,Urine Dark Yellow (Yellow)
[2019-01-09 14:36] LABS: Hematocrit 34.7 % (37.5-50.1); Hemoglobin 11.2 g/dL (12.9-16.9)
[2019-01-09 15:48] LABS: Protein/Creatinine Ratio,Urine 3.14 mg/mg (0.00-0.20)
[2019-01-09] MEDS ORDERED: Insulin DETEMIR 100 UNIT/ML X5UNITS SQ SCH (21:00)
[2019-01-09 21:40] LABS: Hematocrit 32.3 % (37.5-50.1); Hemoglobin 10.6 g/dL (12.9-16.9)
[2019-01-10 05:06] LABS: Basophils % 0.3 %; Eosinophils # 0.1 K/mcL (0.0-0.6); Eosinophils % 0.9 %; Hematocrit 32.7 % (37.5-50.1); Hemoglobin 10.7 g/dL (12.9-16.9); Immature Granulocytes % 0.3 % (0-4); Lymphocytes # 0.4 K/mcL (0.6-4.6); Lymphocytes % 3.6 %; Mean Corpuscular HGB Conc 32.7 g/dL (31.6-35.5); Mean Corpuscular Hemoglobin 28.2 pg (28.0-33.3); Mean Corpuscular Volume 86.3 fL (83.0-100.0); Mean Platelet Volume 10.3 fL (9.4-12.4); Monocytes # 0.8 K/mcL (0.0-1.3); Monocytes % 7.4 %; Neutrophils # 9.7 K/mcL (1.6-8.9); Platelet Count 375 K/mcL (140-400); Red Blood Count 3.79 M/mcL (4.19-5.50); Red Cell Distribution Width 17.4 % (11.5-14.5); Segmented Neutrophils % 87.5 %; White Blood Count 11.1 K/mcL (4.3-11.1)
[2019-01-10 05:36] LABS: Folate > 22.3 ng/mL (3.0-16.0); Vitamin B12 > 1500 pg/mL (250-1100)
[2019-01-10 05:40] LABS: Large Platelets Present (Not Present); Platelet Estimate Normal (Normal)
[2019-01-10 05:49] LABS: Calcium 8.8 mg/dL (8.6-10.3); Magnesium 2.8 mg/dL (1.6-2.6); Potassium 3.9 mEq/L (3.5-5.1)
[2019-01-10] MEDS: Insulin LISPRO 300 UNITS/3 ML VIAL SQ SCH ×4 (07:24→12:30)
[2019-01-10] MEDS: Ranolazine 500 MG TAB.ER.12H PO SCH (07:27)
[2019-01-10] MEDS: Aspirin Enteric Coated 81 MG Tablet PO SCH (07:27)
[2019-01-10] MEDS: *HR* Ticagrelor 90 MG TABLET PO SCH (07:27)
[2019-01-10 12:04] VITALS: BP 109/67
[2019-01-10] MEDS ORDERED: Insulin DETEMIR 100 UNIT/ML X5UNITS SQ SCH (21:00)
== END 2019-01-10 15:08 | disposition home or self-care (01) ==
LOC: 3BNU 00:49 → EMEROOARM 00:49 → SUATTDRO 04:18 → 2ANU 04:55
PROVIDERS: ADMIT Pharmacist; ATTEND Pharmacist

== ENCOUNTER 2019-01-13 10:04 | Inpatient (IN) ==
[~2019-01-13 10:04] MED LIST: *HR* Etomidate 20 MG/10 ML AMPUL IVP ONE; *HR* Midazolam HCl 5 MG/5 ML VIAL IVP ONE
[2019-01-13] MEDS ORDERED: Metoclopramide 10 MG/2 ML VIAL IVP ONE (10:43)
[2019-01-13 10:48] LABS: Hematocrit 34.1 % (37.5-50.1); Hemoglobin 10.7 g/dL (12.9-16.9); Mean Corpuscular HGB Conc 31.4 g/dL (31.6-35.5); Mean Corpuscular Hemoglobin 28.2 pg (28.0-33.3); Mean Corpuscular Volume 89.7 fL (83.0-100.0); Mean Platelet Volume 10.1 fL (9.4-12.4); Platelet Count 349 K/mcL (140-400); Red Cell Distribution Width 18.3 % (11.5-14.5); White Blood Count 11.1 K/mcL (4.3-11.1)
[2019-01-13] MEDS ORDERED: 0.9 % Sodium Chloride 1,000 ML IVC ONE (10:55)
[2019-01-13] MEDS ORDERED: Isovue-370 500 ML BOTTLE IVP ONE ×2 (10:56→11:24)
[2019-01-13 10:58] LABS: INR 1.4
[2019-01-13 11:19] LABS: Troponin I 0.2 ng/mL (< 0.04)
[2019-01-13 11:28] LABS: Calcium 8.1 mg/dL (8.6-10.3)
[2019-01-13] MEDS ORDERED: Aspirin 81 MG TAB.CHEW PO ONE (11:30)
[2019-01-13] MEDS ORDERED: Piperacillin/Tazobactam 3.375 GM in Water for inj. (sterile) 20 ML IVP ONE (11:40)
[2019-01-13] MEDS ORDERED: Azithromycin 500 MG in 0.9 % Sodium Chloride 250 ML IVPB ONE (11:40)
[2019-01-13 11:50] LABS: Albumin 3.6 g/dL (3.5-5.7); Albumin/Globulin Ratio 1.3 (1.1-2.2); Bilirubin,Direct 0.4 mg/dL (0.0-0.2); Bilirubin,Indirect 0.8 mg/dL (0.0-1.2); Bilirubin,Total 1.2 mg/dL (0.3-1.0); Globulin 2.7 g/dL (2.4-3.5); Total Protein 6.3 g/dL (6.4-8.9)
[2019-01-13] MEDS ORDERED: Norepinephrine 4 MG in 0.9 % Sodium Chloride 250 ML IVC SCH (12:00)
[2019-01-13 12:27] LABS: Bilirubin,Urine Negative (Negative); Blood,Urine Large (Negative); Clarity,Urine Turbid (Clear); Glucose,Urine (UA) Normal (Normal); Ketones,Urine Negative (Negative); Leukocyte Esterase,Urine Small (Negative); Nitrite,Urine Negative (Negative); Protein,Urine >=300 mg/dL (Neg-Trace); Urobilinogen,Urine Normal (Normal)
[2019-01-13 12:30] LABS: Bacteria,Urine None Seen per hpf (None-Few); Color,Urine Brown (Yellow); RBC,Urine 15-30 per hpf (0-3); Squamous Epithelial Cell,Urine Many per lpf (None-Few)
[2019-01-13 12:41] LABS: Amorphous Sediment,Urine Many (Few)
[2019-01-13] MEDS ORDERED: 0.9 % Sodium Chloride 1,000 ML ONE (13:53)
[2019-01-13] MEDS ORDERED: Lidocaine -MPF 1% 5 ML AMPUL INFILT ONE (15:13)
[2019-01-13] MEDS ORDERED: 0.9 % Sodium Chloride 500 ML ONE (15:48)
[2019-01-13] MEDS ORDERED: *HR* Heparin 5,000 UNIT/ML VIAL IVP PRN ×2 (16:10)
[2019-01-13] MEDS ORDERED: *HR* Heparin 5,000 UNIT/ML VIAL IVP ONE (16:10)
[2019-01-13] MEDS ORDERED: Norepinephrine 8 MG in 0.9 % Sodium Chloride 250 ML IVC SCH (16:15)
[2019-01-13 16:16] LABS: ABG Base Excess -9 mEq/L (-2 to 3); ABG HCO3 17 mEq/L (21-27); ABG Oxygen Saturation 97 % (95-98); ABG PCO2 33 mmHg (35-45); ABG PH 7.31 pH Units (7.32-7.45); ABG PO2 100 mmHg (85-104); ABG TCO2 18 mEq/L (20-26); Blood Gas Modality AF; Blood Gas VT 550 cc
[2019-01-13] MEDS ORDERED: Artificial Tears SOLN 15 ML BOTTLE BOTH EYES PRN ×2 (16:34→17:11)
[2019-01-13] MEDS ORDERED: Naloxone 0.4 MG/ML INJ IVP PRN ×2 (16:36→17:11)
[2019-01-13 16:46] LABS: Hematocrit 32.5 % (37.5-50.1); Hemoglobin 10.1 g/dL (12.9-16.9); Mean Corpuscular HGB Conc 31.1 g/dL (31.6-35.5); Mean Corpuscular Hemoglobin 28.1 pg (28.0-33.3); Mean Corpuscular Volume 90.5 fL (83.0-100.0); Mean Platelet Volume 10.2 fL (9.4-12.4); Platelet Count 325 K/mcL (140-400); Red Blood Count 3.59 M/mcL (4.19-5.50); Red Cell Distribution Width 18.3 % (11.5-14.5)
[2019-01-13] MEDS: Heparin 25,000 UNIT/250 ML D5W 25,000 UNIT/250 ML IV.SOLN IVC SCH (16:51)
[2019-01-13 16:54] LABS: Heparin anti-factor XA UFH 0.03 IU/mL (0.30-0.70); INR 1.6; Prothrombin Time 17.7 Seconds (9.4-12.1)
[2019-01-13 16:57] LABS: Activated Partial Thrombo Time 29.7 Seconds (26.0-36.0)
[2019-01-13] MEDS ORDERED: Vancomycin 1 EACH in 0.9 % Sodium Chloride 250 ML IVPB PRN (17:00)
[2019-01-13] MEDS: FentaNYL (PF) 1,000 MCG in 0.9 % Sodium Chloride 80 ML IVC SCH (18:21)
[2019-01-13] MEDS: Chlorhexidine Rinse 15 ML MOUTHWASH MM SCH (19:28)
[2019-01-13] MEDS: Cefepime HCl 2,000 MG in Water for inj. (sterile) 20 ML IVP SCH (19:28)
[2019-01-13] MEDS: Artificial Tears SOLN 15 ML BOTTLE BOTH EYES SCH (19:32)
[2019-01-13] MEDS ORDERED: Artificial Tears SOLN 15 ML BOTTLE BOTH EYES SCH (20:00)
[2019-01-13] MEDS ORDERED: Chlorhexidine Rinse 15 ML MOUTHWASH MM SCH (21:00)
[2019-01-14] MEDS: Artificial Tears SOLN 15 ML BOTTLE BOTH EYES SCH ×7 (00:25→23:32)
[2019-01-14] MEDS ORDERED: D5% in Water 1,000 ML IVC PRN (02:31)
[2019-01-14] MEDS ORDERED: Dextrose Gel 15 GM/37.5 ML TUBE PO PRN ×2 (02:31)
[2019-01-14] MEDS: *HR* Dextrose 50 % in Water (Syg) 50 ML SYRINGE IVP PRN ×2 (02:45→06:18)
[2019-01-14 04:08] LABS: Basophils % 0.1 %; Eosinophils % 0.1 %; Hematocrit 35.4 % (37.5-50.1); Hemoglobin 11.3 g/dL (12.9-16.9); Immature Granulocytes % 0.4 % (0-4); Lymphocytes # 0.3 K/mcL (0.6-4.6); Lymphocytes % 2.2 %; Mean Corpuscular HGB Conc 31.9 g/dL (31.6-35.5); Mean Corpuscular Hemoglobin 27.8 pg (28.0-33.3); Mean Platelet Volume 9.7 fL (9.4-12.4); Monocytes # 0.5 K/mcL (0.0-1.3); Monocytes % 3.4 %; Neutrophils # 12.9 K/mcL (1.6-8.9); Platelet Count 380 K/mcL (140-400); Red Blood Count 4.07 M/mcL (4.19-5.50); Red Cell Distribution Width 18.2 % (11.5-14.5); Segmented Neutrophils % 93.8 %; White Blood Count 13.8 K/mcL (4.3-11.1)
[2019-01-14 04:19] LABS: Albumin 3.1 g/dL (3.5-5.7); Albumin/Globulin Ratio 1.2 (1.1-2.2); Bilirubin,Direct 0.4 mg/dL (0.0-0.2); Bilirubin,Indirect 0.7 mg/dL (0.0-1.2); Bilirubin,Total 1.1 mg/dL (0.3-1.0); Calcium 7.4 mg/dL (8.6-10.3); Globulin 2.6 g/dL (2.4-3.5); INR 1.8; Magnesium 2.9 mg/dL (1.6-2.6); Prothrombin Time 20.3 Seconds (9.4-12.1); Total Protein 5.7 g/dL (6.4-8.9)
[2019-01-14 05:16] LABS: ABG Base Excess -6 mEq/L (-2 to 3); ABG HCO3 19 mEq/L (21-27); ABG Oxygen Saturation 97 % (95-98); ABG PCO2 34 mmHg (35-45); ABG PH 7.35 pH Units (7.32-7.45); ABG PO2 91 mmHg (85-104); ABG TCO2 20 mEq/L (20-26); Blood Gas VT 550 cc
[2019-01-14] MEDS: FentaNYL (PF) 1,000 MCG in 0.9 % Sodium Chloride 80 ML IVC SCH ×2 (06:10→20:45)
[2019-01-14] MEDS: D5% in 0.9% NACL 1,000 ML IVC SCH ×2 (07:55→20:05)
[2019-01-14] MEDS: Norepinephrine 8 MG in 0.9 % Sodium Chloride 250 ML IVC SCH ×3 (08:10→20:08)
[2019-01-14] MEDS: Cefepime HCl 2,000 MG in Water for inj. (sterile) 20 ML IVP SCH (08:11)
[2019-01-14] MEDS ORDERED: Aspirin Enteric Coated 81 MG Tablet PO SCH (09:00)
[2019-01-14] MEDS: Chlorhexidine Rinse 15 ML MOUTHWASH MM SCH ×2 (09:23→19:57)
[2019-01-14] MEDS: Pantoprazole 40 MG VIAL IVP SCH (09:24)
[2019-01-14] MEDS: Aspirin 81 MG TAB.CHEW GTUBE SCH (10:17)
[2019-01-14] MEDS ORDERED: Heparin 1,000 UNITS/500 mL 500 ML ONE (13:09)
[2019-01-14 15:09] LABS: Acinetobacter baumannii by PCR Not Detected (Not Detect); Candida albicans by PCR Not Detected (Not Detect); Candida glabrata by PCR Not Detected (Not Detect); Candida krusei by PCR Not Detected (Not Detect); Candida parapsilosis by PCR Not Detected (Not Detect); Candida tropicalis by PCR Not Detected (Not Detect); Enterobacter cloacae Cmplx PCR Not Detected (Not Detect); Enterobacteriaceae by PCR Not Detected (Not Detect); Enterococcus by PCR Not Detected (Not Detect); Escherichia coli by PCR Not Detected (Not Detect); Klebsiella oxytoca by PCR Not Detected (Not Detect); Klebsiella pneumoniae by PCR Not Detected (Not Detect); Proteus by PCR Not Detected (Not Detect); Pseudomonas aeruginosa by PCR Not Detected (Not Detect); Serratia marcescens by PCR Not Detected (Not Detect); Staphylococcus aureus by PCR Not Detected (Not Detect); Staphylococcus by PCR Not Detected (Not Detect); Streptococcus agalactiae(B)PCR Not Detected (Not Detect); Streptococcus by PCR Not Detected (Not Detect); Streptococcus pneumoniae PCR Not Detected (Not Detect); Streptococcus pyogenes (A) PCR Not Detected (Not Detect)
[2019-01-14] MEDS: Heparin 25,000 UNIT/250 ML D5W 25,000 UNIT/250 ML IV.SOLN IVC SCH (16:10)
[2019-01-15] MEDS: Artificial Tears SOLN 15 ML BOTTLE BOTH EYES SCH ×5 (03:09→19:37)
[2019-01-15 04:24] LABS: Basophils % 0.2 %; Eosinophils # 0.2 K/mcL (0.0-0.6); Eosinophils % 1.7 %; Hematocrit 33.2 % (37.5-50.1); Hemoglobin 10.4 g/dL (12.9-16.9); Immature Granulocytes % 0.5 % (0-4); Lymphocytes # 0.4 K/mcL (0.6-4.6); Lymphocytes % 3.1 %; Mean Corpuscular HGB Conc 31.3 g/dL (31.6-35.5); Mean Corpuscular Hemoglobin 27.7 pg (28.0-33.3); Mean Corpuscular Volume 88.3 fL (83.0-100.0); Mean Platelet Volume 9.7 fL (9.4-12.4); Monocytes # 0.6 K/mcL (0.0-1.3); Monocytes % 4.6 %; Neutrophils # 10.8 K/mcL (1.6-8.9); Platelet Count 285 K/mcL (140-400); Red Blood Count 3.76 M/mcL (4.19-5.50); Red Cell Distribution Width 18.2 % (11.5-14.5); Segmented Neutrophils % 89.9 %
[2019-01-15 04:42] LABS: Albumin/Globulin Ratio 1.1 (1.1-2.2); Calcium 7.5 mg/dL (8.6-10.3); Globulin 2.7 g/dL (2.4-3.5); Magnesium 2.9 mg/dL (1.6-2.6); Phosphorous 6.3 mg/dL (2.7-4.5); Potassium 5.3 mEq/L (3.5-5.1); Total Protein 5.7 g/dL (6.4-8.9)
[2019-01-15 05:09] LABS: ABG Base Excess -10 mEq/L (-2 to 3); ABG HCO3 17 mEq/L (21-27); ABG Oxygen Saturation 97 % (95-98); ABG PCO2 36 mmHg (35-45); ABG PH 7.27 pH Units (7.32-7.45); ABG PO2 108 mmHg (85-104); ABG TCO2 18 mEq/L (20-26); Blood Gas Modality ASSIST CONTROL; Blood Gas VT 550 cc
[2019-01-15] MEDS: Chlorhexidine Rinse 15 ML MOUTHWASH MM SCH ×2 (08:02→19:37)
[2019-01-15] MEDS: Aspirin 81 MG TAB.CHEW GTUBE SCH (08:02)
[2019-01-15] MEDS: Pantoprazole 40 MG VIAL IVP SCH (08:03)
[2019-01-15] MEDS ORDERED: Cefepime HCl 2,000 MG in Water for inj. (sterile) 20 ML IVP SCH (09:00)
[2019-01-15] MEDS: FentaNYL (PF) 1,000 MCG in 0.9 % Sodium Chloride 80 ML IVC SCH ×2 (09:32→22:12)
[2019-01-15] MEDS ORDERED: *HR* Heparin 5,000 UNIT/ML VIAL ONE ×2 (11:42→12:17)
[2019-01-15] MEDS ORDERED: Cefepime HCl 1,000 MG in Water for inj. (sterile) 10 ML IVP SCH (13:00)
[2019-01-15] MEDS: Norepinephrine 8 MG in 0.9 % Sodium Chloride 250 ML IVC SCH (13:14)
[2019-01-15] MEDS ORDERED: *HR* Heparin 5,000 UNIT/ML VIAL CRRT PRN (13:44)
[2019-01-15] MEDS ORDERED: 0.9 % Sodium Chloride 1,000 ML PRIME SCH (13:45)
[2019-01-15] MEDS: PrismaSATE BGK 4/2.5 5,000 ML CRRT SCH ×6 (15:21→22:11)
[2019-01-15] MEDS ORDERED: D5% in Water 1,000 ML IVC PRN (15:55)
[2019-01-15] MEDS ORDERED: *HR* Dextrose 50 % in Water (Syg) 50 ML SYRINGE IVP PRN (15:55)
[2019-01-15] MEDS ORDERED: Dextrose Gel 15 GM/37.5 ML TUBE PO PRN ×2 (15:55)
[2019-01-15] MEDS: Insulin LISPRO 300 UNITS/3 ML VIAL SQ SCH ×2 (16:36→19:38)
[2019-01-15] MEDS ORDERED: *HR* Atropine Sulfate 1 MG/10 ML SYRINGE ONE (17:27)
[2019-01-15] MEDS: Heparin 25,000 UNIT/250 ML D5W 25,000 UNIT/250 ML IV.SOLN IVC SCH ×2 (17:38→19:41)
[2019-01-15 17:57] LABS: ABG Base Excess -6 mEq/L (-2 to 3); ABG HCO3 19 mEq/L (21-27); ABG Oxygen Saturation 99 % (95-98); ABG PCO2 35 mmHg (35-45); ABG PH 7.34 pH Units (7.32-7.45); ABG PO2 123 mmHg (85-104); ABG TCO2 20 mEq/L (20-26); Blood Gas Modality ASSIST CONTROL; Blood Gas VT 550 cc
[2019-01-15] MEDS ORDERED: 0.9 % Sodium Chloride 1,000 ML PRIME PRN (19:39)
[2019-01-16] MEDS: Artificial Tears SOLN 15 ML BOTTLE BOTH EYES SCH ×4 (00:49→12:00)
[2019-01-16 01:07] LABS: Albumin 2.5 g/dL (3.5-5.7); Albumin/Globulin Ratio 1.1 (1.1-2.2); Calcium 7.3 mg/dL (8.6-10.3); Globulin 2.2 g/dL (2.4-3.5); Magnesium 2.8 mg/dL (1.6-2.6); Phosphorous 3.5 mg/dL (2.7-4.5); Total Protein 4.7 g/dL (6.4-8.9)
[2019-01-16] MEDS: Insulin LISPRO 300 UNITS/3 ML VIAL SQ SCH ×4 (01:27→12:00)
[2019-01-16] MEDS: PrismaSATE BGK 4/2.5 5,000 ML CRRT SCH ×6 (01:31→08:24)
[2019-01-16 05:00] LABS: Basophils % 0.3 %; Eosinophils # 0.2 K/mcL (0.0-0.6); Eosinophils % 3.1 %; Hematocrit 28.6 % (37.5-50.1); Hemoglobin 9.3 g/dL (12.9-16.9); Immature Granulocytes % 0.7 % (0-4); Lymphocytes # 0.1 K/mcL (0.6-4.6); Lymphocytes % 1.8 %; Mean Corpuscular HGB Conc 32.5 g/dL (31.6-35.5); Mean Corpuscular Hemoglobin 27.8 pg (28.0-33.3); Mean Corpuscular Volume 85.4 fL (83.0-100.0); Mean Platelet Volume 9.5 fL (9.4-12.4); Monocytes # 0.4 K/mcL (0.0-1.3); Neutrophils # 6.3 K/mcL (1.6-8.9); Platelet Count 139 K/mcL (140-400); Red Blood Count 3.35 M/mcL (4.19-5.50); Red Cell Distribution Width 17.9 % (11.5-14.5); Segmented Neutrophils % 89.1 %; White Blood Count 7.1 K/mcL (4.3-11.1)
[2019-01-16 05:06] LABS: ABG Base Excess -1 mEq/L (-2 to 3); ABG HCO3 24 mEq/L (21-27); ABG Oxygen Saturation 98 % (95-98); ABG PCO2 41 mmHg (35-45); ABG PH 7.37 pH Units (7.32-7.45); ABG PO2 102 mmHg (85-104); ABG TCO2 25 mEq/L (20-26); Blood Gas Modality ASSIST CONTROL; Blood Gas VT 550 cc
[2019-01-16] MEDS: Norepinephrine 8 MG in 0.9 % Sodium Chloride 250 ML IVC SCH ×2 (05:13→12:33)
[2019-01-16 05:15] LABS: Albumin 2.5 g/dL (3.5-5.7); Albumin/Globulin Ratio 1.1 (1.1-2.2); Bilirubin,Total 1.1 mg/dL (0.3-1.0); Calcium 7.3 mg/dL (8.6-10.3); Globulin 2.2 g/dL (2.4-3.5); Magnesium 2.7 mg/dL (1.6-2.6); Phosphorous 3.1 mg/dL (2.7-4.5); Potassium 4.1 mEq/L (3.5-5.1); Total Protein 4.7 g/dL (6.4-8.9)
[2019-01-16] MEDS: Heparin 25,000 UNIT/250 ML D5W 25,000 UNIT/250 ML IV.SOLN IVC SCH (05:17)
[2019-01-16] MEDS: FentaNYL (PF) 1,000 MCG in 0.9 % Sodium Chloride 80 ML IVC SCH (06:56)
[2019-01-16 08:31] LABS: Mixed Venous Blood pCO2 51 mmHg (44-46); Mixed Venous Blood pH 7.26 pH Units (7.34-7.36); Mixed Venous Blood pO2 219 mmHg (35-45)
[2019-01-16] MEDS: Aspirin 81 MG TAB.CHEW GTUBE SCH (08:32)
[2019-01-16] MEDS: Chlorhexidine Rinse 15 ML MOUTHWASH MM SCH (08:32)
[2019-01-16] MEDS: Pantoprazole 40 MG VIAL IVP SCH (08:34)
[2019-01-16 08:39] LABS: Mixed Venous Blood O2 Hgb 95.3 % (60-80)
[2019-01-16 08:52] LABS: ABG Base Excess -2 mEq/L (-2 to 3); ABG HCO3 24 mEq/L (21-27); ABG Oxygen Saturation 99 % (95-98); ABG PCO2 49 mmHg (35-45); ABG PH 7.31 pH Units (7.32-7.45); ABG PO2 145 mmHg (85-104); ABG TCO2 26 mEq/L (20-26); Blood Gas Modality AF; Blood Gas VT 500 cc
[2019-01-16] MEDS ORDERED: Cefepime HCl 1,000 MG in Water for inj. (sterile) 10 ML IVP SCH ×2 (09:00→16:00)
[2019-01-16] MEDS ORDERED: Ipratropium/Albuterol Neb 3 ML IH SCH (10:00)
[2019-01-16 10:44] LABS: INR 1.4; Prothrombin Time 16.2 Seconds (9.4-12.1)
[2019-01-16 12:12] VITALS: BP 119/50
[2019-01-16] MEDS ORDERED: Aminoglycoside Consult 1 EACH MC ONE (12:56)
== END 2019-01-16 12:57 | disposition short-term general hospital (02) | DRG 270 ==
LOC: EMEROOARM 10:04 → ICNU 14:05
PROVIDERS: ADMIT Pediatrics; ATTEND Pediatrics

== ENCOUNTER 2019-02-22 06:32 | Inpatient (IN) ==
[2019-02-22 07:25] LABS: Basophils % 0.5 %; Eosinophils # 0.2 K/mcL (0.0-0.6); Eosinophils % 3.7 %; Hematocrit 29.9 % (37.5-50.1); Hemoglobin 9.4 g/dL (12.9-16.9); Immature Granulocytes % 0.6 % (0-4); Lymphocytes # 0.2 K/mcL (0.6-4.6); Lymphocytes % 3.2 %; Mean Corpuscular HGB Conc 31.4 g/dL (31.6-35.5); Mean Corpuscular Hemoglobin 29.3 pg (28.0-33.3); Mean Platelet Volume 10.1 fL (9.4-12.4); Monocytes # 0.4 K/mcL (0.0-1.3); Monocytes % 6.7 %; Neutrophils # 5.4 K/mcL (1.6-8.9); Platelet Count 239 K/mcL (140-400); Red Blood Count 3.21 M/mcL (4.19-5.50); Red Cell Distribution Width 18.4 % (11.5-14.5); Segmented Neutrophils % 85.3 %; White Blood Count 6.3 K/mcL (4.3-11.1)
[2019-02-22 07:37] LABS: Albumin 3.3 g/dL (3.5-5.7); Albumin/Globulin Ratio 1.3 (1.1-2.2); Bilirubin,Total 0.7 mg/dL (0.3-1.0); Calcium 9.1 mg/dL (8.6-10.3); Globulin 2.6 g/dL (2.4-3.5); Potassium 4.3 mEq/L (3.5-5.1); Total Protein 5.9 g/dL (6.4-8.9)
[2019-02-22 07:41] LABS: Mean Corpuscular Volume 93.1 fL (83.0-100.0)
[2019-02-22] MEDS ORDERED: Isovue-370 500 ML BOTTLE IVP ONE (07:58)
[2019-02-22] MEDS ORDERED: *HR* Dextrose 50 % in Water (Syg) 50 ML SYRINGE ONE (08:26)
[2019-02-22] MEDS ORDERED: *HR* Dextrose 50 % in Water (Syg) 50 ML SYRINGE IVP ONE (08:36)
[2019-02-22] MEDS ORDERED: Dextrose Gel 15 GM/37.5 ML TUBE PO PRN ×2 (10:37)
[2019-02-22] MEDS ORDERED: *HR* Dextrose 50 % in Water (Syg) 50 ML SYRINGE IVP PRN (10:37)
[2019-02-22] MEDS ORDERED: Piperacillin/Tazobactam 3.375 GM in 0.9 % Sodium Chloride Mini Bag 100 ML IVPB SCH ×2 (11:00→13:00)
[2019-02-22 11:32] LABS: INR 1.2; Prothrombin Time 13.3 Seconds (9.4-12.1)
[2019-02-22] MEDS ORDERED: 0.9 % Sodium Chloride 1,000 ML PRIME SCH (12:00)
[2019-02-22] MEDS ORDERED: *HR* Heparin 10,000 UNIT/10 ML VIAL IV PRN (12:00)
[2019-02-22] MEDS ORDERED: 0.9 % Sodium Chloride 250 ML IVC PRN (12:00)
[2019-02-22] MEDS ORDERED: 0.9 % Sodium Chloride 1,000 ML ONE (13:08)
[2019-02-22 13:11] LABS: RBC,Peritoneal Fluid 0.003 M/mcL
[2019-02-22 13:12] LABS: Appearance of Peritoneal Fl CLEAR (Clear)
[2019-02-22] MEDS: Piperacillin/Tazobactam 3.375 GM in 0.9 % Sodium Chloride Mini Bag 100 ML IVPB SCH ×2 (13:45→21:03)
[2019-02-22 13:48] LABS: Glucose,Peritoneal Fluid 107 mg/dL (No Ref Range); LDH,Peritoneal Fluid 88 Units/L (No Ref Range); Total Protein,Peritoneal Fluid < 3.0 g/dL
[2019-02-22 14:39] LABS: Hepatitis B Surface Antibody 53.72 mIU/mL
[2019-02-22 14:51] LABS: Hepatitis B Surface Antigen Nonreactive (Nonreactive)
[2019-02-22 15:12] LABS: Basophils,Peritoneal Fluid 0 %; Eosinophils,Peritoneal Fluid 0 %
[2019-02-22] MEDS: *HR* Heparin 5,000 UNIT/ML VIAL SQ SCH (18:45)
[2019-02-22] MEDS: Aspirin 81 MG TAB.CHEW PO SCH (18:45)
[2019-02-22] MEDS ORDERED: D5% in Water 1,000 ML IVC SCH (18:45)
[2019-02-22] MEDS: D5% in Water 1,000 ML IVC PRN (18:52)
[2019-02-22] MEDS: Ranolazine 500 MG TAB.ER.12H PO SCH (21:02)
[2019-02-23 04:30] LABS: Basophils % 0.8 %; Eosinophils # 0.2 K/mcL (0.0-0.6); Eosinophils % 4.7 %; Hematocrit 27.2 % (37.5-50.1); Hemoglobin 8.6 g/dL (12.9-16.9); Immature Granulocytes % 0.3 % (0-4); Lymphocytes # 0.3 K/mcL (0.6-4.6); Mean Corpuscular HGB Conc 31.6 g/dL (31.6-35.5); Mean Corpuscular Hemoglobin 29.5 pg (28.0-33.3); Mean Corpuscular Volume 93.2 fL (83.0-100.0); Mean Platelet Volume 10.1 fL (9.4-12.4); Monocytes # 0.3 K/mcL (0.0-1.3); Monocytes % 8.8 %; Platelet Count 214 K/mcL (140-400); Red Blood Count 2.92 M/mcL (4.19-5.50); Red Cell Distribution Width 18.1 % (11.5-14.5); Segmented Neutrophils % 78.4 %; White Blood Count 3.9 K/mcL (4.3-11.1)
[2019-02-23 04:51] LABS: Calcium 8.7 mg/dL (8.6-10.3); Potassium 4.1 mEq/L (3.5-5.1)
[2019-02-23] MEDS: *HR* Heparin 5,000 UNIT/ML VIAL SQ SCH ×2 (05:17→17:13)
[2019-02-23] MEDS: Piperacillin/Tazobactam 3.375 GM in 0.9 % Sodium Chloride Mini Bag 100 ML IVPB SCH (05:18)
[2019-02-23 05:23] LABS: Hepatitis B Surface Antigen Nonreactive (Nonreactive)
[2019-02-23 05:52] LABS: Hepatitis B Core IgM Nonreactive (Nonreactive); Hepatitis C Virus Antibody Nonreactive (Nonreactive)
[2019-02-23 05:54] LABS: Hepatitis A Antibody IgM Nonreactive (Nonreactive)
[2019-02-23] MEDS ORDERED: *HR* Heparin 10,000 UNIT/10 ML VIAL IV PRN (07:54)
[2019-02-23] MEDS ORDERED: 0.9 % Sodium Chloride 250 ML IVC PRN (07:54)
[2019-02-23] MEDS: Ranolazine 500 MG TAB.ER.12H PO SCH ×2 (08:19→20:11)
[2019-02-23] MEDS: Aspirin 81 MG TAB.CHEW PO SCH (08:19)
[2019-02-23] MEDS: D5% in Water 1,000 ML IVC PRN (08:23)
[2019-02-23] MEDS ORDERED: Amoxicillin/Clavulanate 250 MG TABLET PO SCH (17:00)
[2019-02-23] MEDS: Ondansetron 4 MG/2 ML VIAL IVP PRN (18:18)
[2019-02-23] MEDS: Melatonin 3 MG TABLET PO SCH (20:11)
[2019-02-24] MEDS: Levalbuterol Neb 1.25 MG/3 ML IH SCH ×5 (01:03→21:39)
[2019-02-24] MEDS: *HR* Heparin 5,000 UNIT/ML VIAL SQ SCH ×2 (05:39→17:16)
[2019-02-24 07:43] LABS: Hematocrit 30.1 % (37.5-50.1); Hemoglobin 9.6 g/dL (12.9-16.9); Mean Corpuscular HGB Conc 31.9 g/dL (31.6-35.5); Mean Corpuscular Hemoglobin 29.8 pg (28.0-33.3); Mean Corpuscular Volume 93.5 fL (83.0-100.0); Mean Platelet Volume 10.7 fL (9.4-12.4); Platelet Count 254 K/mcL (140-400); Red Blood Count 3.22 M/mcL (4.19-5.50); Red Cell Distribution Width 17.8 % (11.5-14.5); White Blood Count 5.2 K/mcL (4.3-11.1)
[2019-02-24 07:55] LABS: Calcium 9.1 mg/dL (8.6-10.3); Potassium 4.7 mEq/L (3.5-5.1)
[2019-02-24] MEDS: Ranolazine 500 MG TAB.ER.12H PO SCH ×2 (08:41→20:30)
[2019-02-24] MEDS: Aspirin 81 MG TAB.CHEW PO SCH (08:41)
[2019-02-24] MEDS ORDERED: hydrOXYzine pamoate 25 MG CAPSULE PO PRN (14:25)
[2019-02-24] MEDS: Amoxicillin/Clavulanate 500 MG TABLET PO SCH (17:16)
[2019-02-24 17:54] LABS: Insulin, Free 11 uIU/mL (3-19)
[2019-02-24] MEDS: Melatonin 3 MG TABLET PO SCH (20:30)
[2019-02-24] MEDS: Insulin DETEMIR 100 UNIT/ML X5UNITS SQ SCH (21:00)
[2019-02-24] MEDS ORDERED: Levalbuterol Neb 1.25 MG/3 ML IH SCH (23:34)
[2019-02-25 04:03] LABS: Hemoglobin 9.3 g/dL (12.9-16.9); Mean Corpuscular Hemoglobin 29.2 pg (28.0-33.3); Mean Corpuscular Volume 94.3 fL (83.0-100.0); Mean Platelet Volume 10.5 fL (9.4-12.4); Platelet Count 249 K/mcL (140-400); Red Blood Count 3.18 M/mcL (4.19-5.50); Red Cell Distribution Width 17.6 % (11.5-14.5)
[2019-02-25 04:09] LABS: White Blood Count 8.3 K/mcL (4.3-11.1)
[2019-02-25 04:26] LABS: Calcium 9.1 mg/dL (8.6-10.3)
[2019-02-25] MEDS: Levalbuterol Neb 1.25 MG/3 ML IH SCH ×4 (04:34→22:12)
[2019-02-25] MEDS: *HR* Heparin 5,000 UNIT/ML VIAL SQ SCH ×2 (06:18→16:21)
[2019-02-25] MEDS: Aspirin 81 MG TAB.CHEW PO SCH (08:02)
[2019-02-25] MEDS: Insulin LISPRO 300 UNITS/3 ML VIAL SQ SCH ×3 (08:07→16:51)
[2019-02-25] MEDS: Ranolazine 500 MG TAB.ER.12H PO SCH ×2 (08:19→20:22)
[2019-02-25 09:14] LABS: Insulin, Total 14 uIU/mL (3-19)
[2019-02-25] MEDS ORDERED: *HR* Heparin 10,000 UNIT/10 ML VIAL IV PRN ×2 (09:21)
[2019-02-25] MEDS ORDERED: 0.9 % Sodium Chloride 250 ML IVC PRN (09:21)
[2019-02-25] MEDS ORDERED: 0.9 % Sodium Chloride 1,000 ML PRIME SCH (09:30)
[2019-02-25] MEDS: Amoxicillin/Clavulanate 500 MG TABLET PO SCH (16:17)
[2019-02-25] MEDS: Melatonin 3 MG TABLET PO SCH (20:22)
[2019-02-25] MEDS: Insulin DETEMIR 100 UNIT/ML X5UNITS SQ SCH (20:22)
[2019-02-26 02:56] LABS: Potassium 4.2 mEq/L (3.5-5.1)
[2019-02-26] MEDS: Levalbuterol Neb 1.25 MG/3 ML IH SCH ×4 (02:59→22:44)
[2019-02-26] MEDS: *HR* Heparin 5,000 UNIT/ML VIAL SQ SCH ×2 (05:57→17:24)
[2019-02-26 07:47] LABS: Insulin Antibody <0.4 U/mL (0.0-0.4)
[2019-02-26] MEDS: Insulin LISPRO 300 UNITS/3 ML VIAL SQ SCH ×3 (07:47→17:24)
[2019-02-26] MEDS: Ranolazine 500 MG TAB.ER.12H PO SCH ×2 (07:50→21:10)
[2019-02-26] MEDS: Aspirin 81 MG TAB.CHEW PO SCH (07:50)
[2019-02-26] MEDS: Ondansetron 4 MG/2 ML VIAL IVP PRN (07:55)
[2019-02-26] MEDS: Amoxicillin/Clavulanate 500 MG TABLET PO SCH (17:24)
[2019-02-26] MEDS: Melatonin 3 MG TABLET PO SCH (21:10)
[2019-02-26] MEDS: Insulin DETEMIR 100 UNIT/ML X5UNITS SQ SCH (21:11)
[2019-02-27] MEDS: Levalbuterol Neb 1.25 MG/3 ML IH SCH (04:05)
[2019-02-27] MEDS: *HR* Heparin 5,000 UNIT/ML VIAL SQ SCH ×2 (05:18→17:50)
[2019-02-27 06:28] LABS: Hematocrit 30.6 % (37.5-50.1); Hemoglobin 9.9 g/dL (12.9-16.9); Mean Corpuscular HGB Conc 32.4 g/dL (31.6-35.5); Mean Corpuscular Hemoglobin 29.3 pg (28.0-33.3); Mean Corpuscular Volume 90.5 fL (83.0-100.0); Mean Platelet Volume 10.7 fL (9.4-12.4); Platelet Count 258 K/mcL (140-400); Red Blood Count 3.38 M/mcL (4.19-5.50); Red Cell Distribution Width 17.9 % (11.5-14.5); White Blood Count 8.2 K/mcL (4.3-11.1)
[2019-02-27 06:56] LABS: Calcium 9.2 mg/dL (8.6-10.3); Potassium 5.1 mEq/L (3.5-5.1)
[2019-02-27] MEDS: Insulin LISPRO 300 UNITS/3 ML VIAL SQ SCH ×3 (08:11→16:32)
[2019-02-27] MEDS: Aspirin 81 MG TAB.CHEW PO SCH (09:12)
[2019-02-27] MEDS: Ranolazine 500 MG TAB.ER.12H PO SCH ×2 (09:12→16:29)
[2019-02-27] MEDS: Amoxicillin/Clavulanate 500 MG TABLET PO SCH (17:50)
[2019-02-27] MEDS: Melatonin 3 MG TABLET PO SCH (21:09)
[2019-02-27] MEDS: Insulin DETEMIR 100 UNIT/ML X5UNITS SQ SCH (21:09)
[2019-02-27] MEDS: Levalbuterol Neb 1.25 MG/3 ML IH PRN (23:43)
[2019-02-28 05:04] LABS: Hematocrit 30.3 % (37.5-50.1); Hemoglobin 9.8 g/dL (12.9-16.9); Mean Corpuscular HGB Conc 32.3 g/dL (31.6-35.5); Mean Corpuscular Hemoglobin 29.2 pg (28.0-33.3); Mean Corpuscular Volume 90.2 fL (83.0-100.0); Mean Platelet Volume 10.9 fL (9.4-12.4); Platelet Count 242 K/mcL (140-400); Red Blood Count 3.36 M/mcL (4.19-5.50); Red Cell Distribution Width 18.2 % (11.5-14.5); White Blood Count 10.7 K/mcL (4.3-11.1)
[2019-02-28] MEDS: *HR* Heparin 5,000 UNIT/ML VIAL SQ SCH ×2 (05:06→16:48)
[2019-02-28 05:30] LABS: Calcium 8.8 mg/dL (8.6-10.3); Potassium 6.5 mEq/L (3.5-5.1)
[2019-02-28] MEDS ORDERED: Albuterol 2.5 MG/3 ML NEBULIZER IH ONE (05:33)
[2019-02-28] MEDS ORDERED: *HR* Dextrose 50 % in Water (Syg) 50 ML SYRINGE IVP ONE (05:35)
[2019-02-28] MEDS ORDERED: Insulin Human Regular 10 UNIT in 0.9 % Sodium Chloride 10 ML IV ONE (05:35)
[2019-02-28] MEDS ORDERED: *HR* Heparin 10,000 UNIT/10 ML VIAL IV PRN ×2 (07:31)
[2019-02-28] MEDS ORDERED: 0.9 % Sodium Chloride 250 ML IVC PRN (07:31)
[2019-02-28] MEDS: Insulin LISPRO 300 UNITS/3 ML VIAL SQ SCH ×3 (09:19→16:07)
[2019-02-28] MEDS: Ranolazine 500 MG TAB.ER.12H PO SCH ×2 (12:09→21:43)
[2019-02-28] MEDS: Aspirin 81 MG TAB.CHEW PO SCH (12:09)
[2019-02-28] MEDS: Amoxicillin/Clavulanate 500 MG TABLET PO SCH (16:48)
[2019-02-28] MEDS ORDERED: Insulin DETEMIR 100 UNIT/ML X5UNITS SQ SCH (21:00)
[2019-02-28] MEDS: Melatonin 3 MG TABLET PO SCH (21:43)
[2019-03-01] MEDS: *HR* Heparin 5,000 UNIT/ML VIAL SQ SCH ×2 (06:17→18:29)
[2019-03-01 06:56] LABS: Hematocrit 28.2 % (37.5-50.1); Hemoglobin 9.2 g/dL (12.9-16.9); Mean Corpuscular HGB Conc 32.6 g/dL (31.6-35.5); Mean Corpuscular Hemoglobin 29.3 pg (28.0-33.3); Mean Corpuscular Volume 89.8 fL (83.0-100.0); Mean Platelet Volume 10.7 fL (9.4-12.4); Platelet Count 205 K/mcL (140-400); Red Blood Count 3.14 M/mcL (4.19-5.50); Red Cell Distribution Width 18.2 % (11.5-14.5); White Blood Count 9.2 K/mcL (4.3-11.1)
[2019-03-01 07:18] LABS: Potassium 5.5 mEq/L (3.5-5.1)
[2019-03-01] MEDS: Ranolazine 500 MG TAB.ER.12H PO SCH ×2 (09:24→20:25)
[2019-03-01] MEDS: Aspirin 81 MG TAB.CHEW PO SCH (09:24)
[2019-03-01] MEDS: Insulin LISPRO 300 UNITS/3 ML VIAL SQ SCH ×3 (09:26→16:37)
[2019-03-01] MEDS: Levalbuterol Neb 1.25 MG/3 ML IH PRN (09:38)
[2019-03-01] MEDS ORDERED: 0.9 % Sodium Chloride 500 ML IVC ONE (16:20)
[2019-03-01 17:51] LABS: Troponin I 0.55 ng/mL (< 0.04)
[2019-03-01] MEDS ORDERED: *HR* Dextrose 50 % in Water (Syg) 50 ML SYRINGE IVP ONE (19:36)
[2019-03-01] MEDS: Calcium Gluconate 1gm/50mL 1 GM/50 ML BAG IVPB SCH ×2 (20:24→21:32)
[2019-03-01] MEDS: Albumin 25% 25gram/100mL 25 GM/100 ML IV.SOLN IVC SCH ×4 (20:24→21:50)
[2019-03-01] MEDS: Melatonin 3 MG TABLET PO SCH (20:25)
[2019-03-01] MEDS ORDERED: Sodium Bicarbonate 150 MEQ in D5% in Water 1,000 ML IVC SCH (21:00)
[2019-03-01] MEDS ORDERED: 0.9 % Sodium Chloride 250 ML IVC ONE ×2 (21:01→22:05)
[2019-03-01 21:57] LABS: Basophils % 0.1 %; Eosinophils % 0.1 %; Hematocrit 27.8 % (37.5-50.1); Hemoglobin 8.8 g/dL (12.9-16.9); Immature Granulocytes % 0.9 % (0-4); Lymphocytes # 0.3 K/mcL (0.6-4.6); Lymphocytes % 2.8 %; Mean Corpuscular HGB Conc 31.7 g/dL (31.6-35.5); Mean Corpuscular Volume 91.7 fL (83.0-100.0); Mean Platelet Volume 11.3 fL (9.4-12.4); Monocytes # 0.6 K/mcL (0.0-1.3); Monocytes % 5.7 %; Nucleated Red Blood Cells 0.9 /100 WBC (0); Platelet Count 157 K/mcL (140-400); Red Blood Count 3.03 M/mcL (4.19-5.50); Red Cell Distribution Width 18.5 % (11.5-14.5); Segmented Neutrophils % 90.4 %
[2019-03-01 22:12] LABS: VBG HCO3 15 mEq/L (21-27); VBG PCO2 25 mmHg (41-51); VBG PO2 132 mmHg (25-50)
[2019-03-01 22:20] LABS: Albumin 3.9 g/dL (3.5-5.7); Albumin/Globulin Ratio 1.6 (1.1-2.2); Calcium 8.1 mg/dL (8.6-10.3); Globulin 2.5 g/dL (2.4-3.5); Potassium 6.1 mEq/L (3.5-5.1); Total Protein 6.4 g/dL (6.4-8.9)
[2019-03-01 22:44] LABS: Troponin I 0.6 ng/mL (< 0.04)
[2019-03-01 23:49] VITALS: BP 72/47
[2019-03-02] MEDS ORDERED: Albumin 25% 25gram/100mL 25 GM/100 ML IV.SOLN IVPB SCH
== END 2019-03-02 02:40 | disposition expired | DRG 917 ==
LOC: SUATTDRO → 2ANU 06:32 → EMEROOARM 06:32 → SUATTDRO 11:50 → 2ANU 12:27 → SUATTDRO 02-27 16:04 → 2NNU 03-01 19:17
PROVIDERS: ADMIT Internal Medicine; ATTEND Internal Medicine